=== PATIENT | female | born 1965 | race Caucasian/White ===

== ENCOUNTER 2020-02-03 09:44 | Outpatient (REF) | payer BC, SELFPAY ==
[2020-02-03 12:16] LABS: Alanine Aminotransferase 26 U/L (0-31); Albumin Level 4.7 g/dL (3.5-5.0); Alkaline Phosphatase 67 U/L (39-117); Anion Gap 11 (12-20); Aspartate Amino Transferase 25 U/L (5-31); Bilirubin Total 0.8 mg/dL (0.0-1.0); Blood Urea Nitrogen 15 mg/dL (9-16); Carbon Dioxide 28 mmol/L (22-29); Chloride 101 mmol/L (96-108); Cholesterol 267 mg/dL; Estimated Glomerular Filt Rate > 60; Glucose Fasting 103 mg/dL (60-99); HDL Cholesterol 75 mg/dL; LDL Cholesterol Calculated 151 mg/dl; Sodium 136 mmol/L (135-145); Total Protein 7.5 g/dL (6.5-8.0); Triglycerides 206 mg/dL; Vitamin D 25-OH Total 44.2 ng/mL (>30)
== END 2020-02-03 09:45 | disposition home or self-care (01) ==
LOC: HO.HMGCLDS 09:44
PROVIDERS: PCP Internal Medicine; Visit Provider Internal Medicine
DX: Z00.01 Encounter for general adult medical examination with abnormal findings (principal); L30.9 Dermatitis, unspecified; K21.9 Gastro-esophageal reflux disease without esophagitis; F41.9 Anxiety disorder, unspecified; N95.1 Menopausal and female climacteric states; F17.200 Nicotine dependence, unspecified, uncomplicated
CPT/HCPCS: 36415; 80053; 80061; 82306

== ENCOUNTER 2020-03-04 08:15 | Outpatient (REF) | payer BC, SELFPAY ==
--- NOTE | 2020-03-04 08:18 | US_ITS ---
EXAMINATION: US SOFT TISSUE HEAD/NECK CLINICAL INFORMATION: Other specified soft tissue disorders, lump on neck COMPARISON: None TECHNIQUE: Routine grayscale imaging of neck lump was performed. FINDINGS: Imaging through an area of lump as per patient reveals no sonographic abnormality. No mass or cyst seen. No abnormal vascularity. US/US soft tiss head and/or neck IMPRESSION: Unremarkable ultrasound of neck lump.
== END 2020-03-04 08:16 | disposition home or self-care (01) ==
LOC: HO.HMGCX 08:15
PROVIDERS: PCP Internal Medicine; Visit Provider Hospitalist
DX: M79.89 Other specified soft tissue disorders (principal)
CPT/HCPCS: 76536

== ENCOUNTER → 2020-03-17 11:29 | Outpatient (BNVA) | payer BC, SELFPAY | PROVIDERS: PCP Internal Medicine; Referring Provider Internal Medicine; Visit Provider Nurse Practitioner | DX: Z76.89 Persons encountering health services in other specified circumstances (principal) ==

== ENCOUNTER 2020-05-20 07:29 | Outpatient (REF) | payer BC, SELFPAY | END 2020-05-20 07:30 | disposition home or self-care (01) | LOC: HO.HMGCLDS 07:29 | PROVIDERS: PCP Internal Medicine; Visit Provider Internal Medicine | DX: Z20.822 Contact with and (suspected) exposure to COVID-19 (principal) | CPT/HCPCS: 36415; U0003 ==

== ENCOUNTER → 2020-06-22 08:49 | Outpatient (BNVA) | payer BC, SELFPAY | PROVIDERS: PCP Internal Medicine; Visit Provider Nurse Practitioner ==

== ENCOUNTER → 2020-12-21 08:42 | Outpatient (BNVA) | payer BC, SELFPAY | PROVIDERS: PCP Internal Medicine; Visit Provider Nurse Practitioner ==

== ENCOUNTER 2021-02-03 10:16 | Outpatient (REF) | payer BC, SELFPAY ==
[2021-02-03 11:20] LABS: MANUAL DIFF FLAG NO
[2021-02-03 11:24] LABS: Basophils Percent Auto 0.6 % (0-2); Eosinophils Absolute Auto 0.1 X10*3/uL (0.0-0.4); Eosinophils Percent Auto 1.7 % (0-4); Hematocrit 41.9 % (37-47); Hemoglobin 14.2 g/dl (12.0-16.0); Imm Gran Abs Auto 0.06 X10*3/uL (0.00-0.03); Imm Gran Pct Auto 0.9 % (0.0-0.4); Lymphocytes Absolute Auto 2.3 X10*3/uL (1.2-4.9); Lymphocytes Percent Auto 35.4 % (20-40); Mean Corpuscular HGB Conc 33.9 g/dl (31.0-35.0); Mean Corpuscular Hemoglobin 31.9 pg (27.0-33.0); Mean Corpuscular Volume 94.2 fL (80-98); Mean Platelet Volume 11.4 fL (9.4-12.3); Monocytes Absolute Auto 0.5 X10*3/uL (0.1-1.2); Monocytes Percent Auto 8.2 % (2-11); Neutrophils Absolute Auto 3.5 X10*3/uL (2.0-8.3); Neutrophils Percent Auto 53.2 % (45-73); Platelet Count 223 X10*3/uL (160-400); Red Blood Count 4.45 X10*6/uL (4.20-5.50); Red Cell Distribution Width 11.9 % (11.0-16.0); White Blood Count 6.6 X10*3/uL (4.8-10.8)
[2021-02-03 12:00] LABS: Alanine Aminotransferase 25 U/L (0-31); Albumin Level 4.7 g/dL (3.5-5.0); Alkaline Phosphatase 73 U/L (39-117); Anion Gap 14 (12-20); Aspartate Amino Transferase 24 U/L (5-31); Bilirubin Total 0.6 mg/dL (0.0-1.0); Blood Urea Nitrogen 17 mg/dL (9-16); Calcium 10.3 mg/dL (8.4-10.2); Carbon Dioxide 27 mmol/L (22-29); Chloride 105 mmol/L (96-108); Cholesterol 267 mg/dL; Estimated Glomerular Filt Rate 60; Glucose Random 101 mg/dL (60-115); HDL Cholesterol 79 mg/dL; LDL Cholesterol Calculated 161 mg/dl; Potassium 4.8 mmol/L (3.3-5.1); Sodium 141 mmol/L (135-145); Total Protein 7.8 g/dL (6.5-8.0); Triglycerides 139 mg/dL
[2021-02-03 12:06] LABS: Vitamin D 25-OH Total 47.9 ng/mL (>30)
[2021-02-03 12:21] LABS: Estimated Average Glucose 94 mg/dL; Hemoglobin A1c % 4.9 %
== END 2021-02-03 10:17 | disposition home or self-care (01) ==
LOC: HO.HMGCLDS 10:16
PROVIDERS: PCP Internal Medicine; Visit Provider Nurse Practitioner
DX: Z00.00 Encounter for general adult medical examination without abnormal findings (principal); Z12.11 Encounter for screening for malignant neoplasm of colon; E78.5 Hyperlipidemia, unspecified; K21.9 Gastro-esophageal reflux disease without esophagitis; R73.01 Impaired fasting glucose
CPT/HCPCS: 36415; 80053; 80061; 82306; 83036; 85025

== ENCOUNTER 2021-02-08 08:43 | Outpatient (REF) | payer BC, SELFPAY ==
--- NOTE | ~2021-02-08 | XR_ITS ---
EXAMINATION: XR HAND, LEFT CLINICAL INFORMATION: Trauma, pain COMPARISON: None TECHNIQUE: PA, lateral, and oblique views of the left hand. FINDINGS: There is a hairline nondisplaced fracture involving the distal shaft and neck left fifth metacarpal. The remainder of the bony structures appear intact. The ulnar variance is neutral. There is no dislocation or destructive process. No arthropathy. XR/XR hand LT min 3V IMPRESSION: Oblique hairline fracture left fifth metacarpal.
== END 2021-02-08 08:44 | disposition home or self-care (01) ==
LOC: HO.HMGCX 08:43
PROVIDERS: PCP Internal Medicine; Visit Provider Physician Assistant Medical
DX: S69.92XA Unspecified injury of left wrist, hand and finger(s), initial encounter (principal)
CPT/HCPCS: 73130

== ENCOUNTER 2021-02-08 09:49 | Emergency (ER) | payer BC, SELFPAY ==
[2021-02-08 09:55] VITALS: BP 165/81; PULSE 88; RESP 18; TEMP 36.5; O2SAT 99; BMI 22.8
--- NOTE | 2021-02-08 11:21 | ED.UPPEXIN ---
HPI - Extremity Injury (Upper) General Chief Complaint: Extremity Problem Stated Complaint: fall - arm injury Time Seen by Provider: 02/08/21 10:47 Source: patient Mode of arrival: ambulatory Limitations: no limitations History of Present Illness HPI narrative: 56-year-old female presenting to the ED after she had a mechanical fall last night when she was chasing her cat and tripped and fell in her house landing on her left hand and since then has been having pain to her left hand 5th digit with soft tissue swelling and ecchymosis. She denies head injury loss of consciousness or being on any blood thinners or any other injury complaints or concerns at this time. She was seen at the outpatient urgent care and they noted she had the hairline left 5th metacarpal fracture although they do not have splints there therefore they sent her here for splint. MD complaint: injury to: left and hand Onset (ago): day(s) (Last night) Other Extremity Injury: left: hand Other injuries: none Handedness: right Place: home Severity: moderate Relieving factors: none Exacerbating factors: movement of extremity Context: fall Associated symptoms: denies other symptoms Treatments prior to arrival: cold therapy Related Data Home Medications Medication Instructions Recorded Confirmed cholecalciferol (vitamin D3) 10 10 mcg PO DAILY 02/01/20 02/03/21 mcg (400 unit) capsule cyclosporine 0.05 % eye drops in a 1 drp OPHTHALMIC (EYE) Q12H 02/01/20 02/03/21 dropperette (Restasis) multivitamin 1 cap PO DAILY 02/01/20 02/03/21 vitamin B complex (B 1 tab PO DAILY 02/01/20 02/03/21 Complex-Vitamin B12) ibuprofen 600 mg tablet 600 mg PO TID 03/06/20 02/03/21 clindamycin 1.2 % (1 % 1 appl TOPICAL DAILY 02/03/21 02/03/21 base)-benzoyl peroxide 5 % topical gel Previous Rx's Medication Instructions Recorded bisacodyl 5 mg tablet,delayed 10 mg PO BEDTIME 2 Days #4 tab 12/21/20 release (Dulcolax (bisacodyl)) peg 3350-electrolytes 236 240 ml PO Q10M 1 Days #4000 ml 12/21/20 gram-22.74 gram-6.74 gram-5.86 gram solution (Golytely) pantoprazole 40 mg tablet,delayed 40 mg PO DAILY #90 cap 01/18/21 release acetaminophen 500 mg tablet 1,000 mg PO QID PRN #14 tab 02/08/21 (Tylenol Extra Strength) ibuprofen 800 mg tablet 800 mg PO Q8H PRN #14 tab 02/08/21 Allergies Allergy/AdvReac Type Severity Reaction Status Date / Time No Known Allergies Allergy Verified 02/03/21 09:48 [No Known Allergies*] Review of Systems Review of Systems: Constitutional : No Fever, No Chills ENT/Mouth : No Ear Pain, No Hoarseness, No sore throat Eyes: No Eye Pain, No Swelling, No Redness, No Foreign Body Cardiovascular : No Chest Pain, No SOB Respiratory : No Cough, No Dyspnea Gastrointestinal : No Nausea, No Vomiting, No Diarrhea, No abdominal Pain Genitourinary : No Dysuria, No Hematuria Musculoskeletal : Positive left hand/5th metacarpal joint pain/swelling/ecchymosis, No Myalgias, No Joint Swelling Skin : No Skin lacerations, No rash Neuro : No Weakness, No Numbness, No Paresthesias, No Loss of Consciousness, No Dizziness, No Headache Psych : No Anxiety/Panic, No Depression Heme/Lymph: no easy bruising, no Lymphadenopathy Endocrine : No Polyuria, No Polydipsia Yes all other systems are reviewed and are negative [facility] Past Medical History Attestation statement: The following information was validated with the patient. Medical History Cervical paraspinal muscle spasm Dyslipidemia Eczema of both hands GERD (gastroesophageal reflux disease) History of anxiety disorder History of chickenpox Impaired fasting glucose Osteopenia of left hip Osteopenia of right hip Rash of face Smoker unmotivated to quit Surgical menopause Surgical History History of appendectomy History of esophagogastroduodenoscopy (EGD) History of hysterectomy, supracervical abdominal (subtotal) Hx of colonoscopy Family History Family History Father Hypertension Mother Diabetes Stroke Brother Hypercholesteremia Brother Hypertension Social History Social History Housing: House Alcohol intake: current Alcohol intake frequency: 0-2 drinks per day Alcohol type: beer and wine Patient Tobacco Use Status: Current everyday Tobacco user Cigarettes Per Day: 10 Years Smoked: 40 Advance Directives: No Advance Directives Information Provided: No service: No Current occupational status: employed Physical Exam Vital Signs: Vital Signs: Last Vital Signs Temp 97.7 F 02/08/21 09:55 Pulse 88 02/08/21 09:55 Resp 18 02/08/21 09:55 BP 165/81 H 02/08/21 09:55 Pulse Ox 99 02/08/21 09:55 Body Mass Index 22.8 vital signs have been reviewed as normal and appeared to be correct. Blood pressure hypertensive 165/81. heart rate normal Respiration rate normal. Temperature normal. Oxygen saturation normal. Appearance: Alert. Oriented X3. No acute distress. Head: Normal external exam. Normocephalic. Atraumatic. Eyes: PERRLA. EOMI. Conjunctiva and sclera normal. Eyelids normal. ENT: Pharynx normal. Uvula midline. Moist mucous membranes. Neck: Normal inspection. Neck supple. FROM. CVS: Normal heart rate and rhythm. Respiratory: No respiratory distress. Painless inspiration. Skin: Skin warm and dry. Normal skin color. Normal skin turgor. No rashes/lesions/lacerations noted. Extremities: To left hand at the 5th metacarpal patient has moderate tenderness of patient and ecchymosis noted. She has full range of motion of all digits and wrist no obvious ligamentous or tendon injury. No signs of infection. Otherwise all other extremities exhibit normal range of motion and nontender. Neuro: Oriented X 3. No motor deficit. No sensory deficit. Reflexes normal. Normal steady gait. No focal neuro deficits noted. Vascular: + radial pulses/+ 2 distal pedal pulses/+2 dorsalis pedis b/l. Normal cap refill. No cyanosis noted to upper extremity nails and lower extremity toes nails. Course Course Course Narrative: 56-year-old female not on any blood thinners denies head injury or loss of consciousness presenting to the ED after she was seen at the Urgent Care for mechanical fall with injury to her left hand and had an x-ray which revealed a left hairline 5th metacarpal fracture was sent here for splinting. Denies any other injury complaints or concerns. Patient is now status post splint placement. Patient tolerated procedure well. No complications. Will DC home with symptomatic treatment and referral to orthopedic along with instructions return if any new or worsening symptoms. Patient understand agree to this plan. MDM - Extremity Injury (Upper) Medical Records Attestation: I reviewed the patient's medical records. Imaging Data Left hand x-ray: Attestation: I personally reviewed and interpreted this imaging study as follows: Radiologist's impression: FINDINGS: There is a hairline nondisplaced fracture involving the distal shaft and neck left fifth metacarpal. The remainder of the bony structures appear intact. The ulnar variance is neutral. There is no dislocation or destructive process. No arthropathy.? XR/XR hand LT min 3V IMPRESSION: Oblique hairline fracture left fifth metacarpal. Procedures Orthopedic Splinting/Casting Injury #1: Side: left Upper Extremity Injury Location: wrist, hand and finger Upper Extremity Immobilizer: ulnar gutter Discharge Plan Discharge Clinical Impression: Fracture of fifth metacarpal bone of left hand, Fall Patient Disposition: Home, Self-Care Instructions: Splint Care (ED), Boxer Fracture (ED) Prescriptions: New ibuprofen 800 mg tablet 800 mg PO Q8H PRN (Reason: pain) Qty: 14 RF: 0 acetaminophen [Tylenol Extra Strength] 500 mg tablet 1,000 mg PO QID PRN (Reason: fever or pain) Qty: 14 RF: 0 No Action pantoprazole 40 mg tablet,delayed release (DR/EC) 40 mg PO DAILY Qty: 90 RF: 5 vitamin B complex [B Complex-Vitamin B12] Tablet 1 tab PO DAILY RF: 0 Restasis 0.05 % dropperette 1 drp ophthalmic (eye) Q12H RF: 0 cholecalciferol (vitamin D3) 10 mcg (400 unit) capsule 10 mcg PO DAILY RF: 0 multivitamin Capsule 1 cap PO DAILY RF: 0 clindamycin-benzoyl peroxide 1.2 %(1 % base) -5 % gel 1 appl topical DAILY RF: 0 ibuprofen 600 mg tablet 600 mg PO TID RF: 0 bisacodyl [Dulcolax (bisacodyl)] 5 mg tablet,delayed release (DR/EC) 10 mg PO BEDTIME 2 Days Qty: 4 RF: 0 peg 3350-electrolytes [Golytely] 236-22.74-6.74 -5.86 gram recon soln 240 ml PO Q10M 1 Days Qty: 4000 RF: 0 Referrals: Nita Duke MD [Primary Care Provider] - 2 days Alex Krishna MD [Physician] - 02/09/21 Stand Alone Forms: Work/School Release Print Language: Cuban
== END 2021-02-08 11:32 | disposition home or self-care (01) ==
PROVIDERS: Emergency Provider Emergency Medicine; PCP Internal Medicine
DX: S62.307A Unspecified fracture of fifth metacarpal bone, left hand, initial encounter for closed fracture (principal); W01.0XXA Fall on same level from slipping, tripping and stumbling without subsequent striking against object, initial encounter; Y93.9 Activity, unspecified; Y92.009 Unspecified place in unspecified non-institutional (private) residence as the place of occurrence of the external cause; Y99.9 Unspecified external cause status
CPT/HCPCS: 29125; 99283; 99284

== ENCOUNTER 2021-02-22 08:03 | Day surgery (SDC) | payer BC, SELFPAY ==
[2021-02-16 14:09] VITALS: BMI 24.5
--- NOTE | 2021-02-19 09:22 | HO.ANESPROP2 ---
Documented by User: Vanessa Garber NP 02/19/21 09:24 HPI - Anesthesia Eval Consult details Narrative: 56yo F for Colonoscopy PMFSH Active Problems Active Problems: All Active Problems (Updated 02/16/21 @ 14:04 by Alva Tello RN) Dysphagia (Acute) Loose stools (Acute) Colon cancer screening (Acute) Hemorrhoids (Acute) Injury of left hand (Acute) Fracture of fifth metacarpal bone of left hand (Acute) Osteopenia of right hip (Acute) Impaired fasting glucose (Acute) Dyslipidemia (Acute) Rash of face (Acute) Cervical paraspinal muscle spasm (Acute) Osteopenia of left hip (Acute) Smoker unmotivated to quit (Acute) Eczema of both hands (Acute) GERD (gastroesophageal reflux disease) (Acute) Past Medical History Medical History (Updated 02/16/21 @ 14:04 by Alva Tello, RN) Cervical paraspinal muscle spasm COVID-19 vaccine series completed Dyslipidemia Eczema of both hands GERD (gastroesophageal reflux disease) History of anxiety disorder History of chickenpox Impaired fasting glucose Osteopenia of left hip Osteopenia of right hip Rash of face Smoker unmotivated to quit Surgical menopause Family History Family History Father Hypertension Mother Diabetes Stroke Brother Hypercholesteremia Brother Hypertension Surgical History Surgical History (Updated 02/16/21 @ 14:02 by Alva Tello RN) History of appendectomy History of esophagogastroduodenoscopy (EGD) History of hysterectomy, supracervical abdominal (subtotal) Hx of colonoscopy Social History Social History Housing: House Alcohol intake: current Alcohol intake frequency: holidays/special occasions only Alcohol type: beer and wine Patient Tobacco Use Status: Current everyday Tobacco user Tobacco use type: Cigarette Cigarettes Per Day: 15 Years Smoked: 40 Advance Directives Information Provided: Yes (informational brochure mailed) Advance Directives on File: No service: No Current occupational status: employed Meds Allergies Allergy/AdvReac Type Severity Reaction Status Date / Time No Known Allergies Allergy Verified 02/03/21 09:48 [No Known Allergies*] Home Medications Medication Instructions Recorded Confirmed Last Taken Type cholecalciferol (vitamin D3) 10 10 mcg PO DAILY 02/01/20 02/03/21 Unknown History mcg (400 unit) capsule cyclosporine 0.05 % eye drops in a 1 drp OPHTHALMIC (EYE) Q12H 02/01/20 02/03/21 Unknown History dropperette (Restasis) multivitamin 1 cap PO DAILY 02/01/20 02/03/21 Unknown History vitamin B complex (B 1 tab PO DAILY 02/01/20 02/03/21 Unknown History Complex-Vitamin B12) ibuprofen 600 mg tablet 600 mg PO TID 03/06/20 02/03/21 Unknown History clindamycin 1.2 % (1 % 1 appl TOPICAL DAILY 02/03/21 02/03/21 Unknown History base)-benzoyl peroxide 5 % topical gel Exam Exam Date and Time: February 19, [id number] Height,Weight and Vital Signs: Height 5 ft 6 in Weight 68.946 kg Pertinent Lab Results Pertinent Lab Results: Laboratory Tests 02/03/21 02/03/21 10:30 10:30 WBC 6.6 Hgb 14.2 Hct 41.9 Plt Count 223 Sodium 141 Potassium 4.8 Chloride 105 Carbon Dioxide 27 BUN 17 H Creatinine 0.96 Assessment and Plan Assessment Anesthesia Assessment: Chart Reviewed Documented by User: Dominga Montoya MD 02/22/21 08:28 [facility] Past Medical History Medical History (Updated 02/16/21 @ 14:04 by Alva Tello, RN) Cervical paraspinal muscle spasm COVID-19 vaccine series completed Dyslipidemia Eczema of both hands GERD (gastroesophageal reflux disease) History of anxiety disorder History of chickenpox Impaired fasting glucose Osteopenia of left hip Osteopenia of right hip Rash of face Smoker unmotivated to quit Surgical menopause Family History Family History Father Hypertension Mother Diabetes Stroke Brother Hypercholesteremia Brother Hypertension Family history of problems with anesthesia: No Surgical History Surgical History (Updated 02/16/21 @ 14:02 by Alva Tello RN) History of appendectomy History of esophagogastroduodenoscopy (EGD) History of hysterectomy, supracervical abdominal (subtotal) Hx of colonoscopy History of Problems with Anesthesia: No Social History Social History Housing: House Alcohol intake: current Alcohol intake frequency: holidays/special occasions only Alcohol type: beer and wine Patient Tobacco Use Status: Current everyday Tobacco user Tobacco use type: Cigarette Cigarettes Per Day: 15 Years Smoked: 40 Advance Directives Information Provided: Yes (informational brochure mailed) Advance Directives on File: No service: No Current occupational status: employed Meds Allergies Allergy/AdvReac Type Severity Reaction Status Date / Time No Known Allergies Allergy Verified 02/03/21 09:48 [No Known Allergies*] Home Medications Medication Instructions Recorded Confirmed Last Taken Type cholecalciferol (vitamin D3) 10 10 mcg PO DAILY 02/01/20 02/03/21 Unknown History mcg (400 unit) capsule cyclosporine 0.05 % eye drops in a 1 drp OPHTHALMIC (EYE) Q12H 02/01/20 02/03/21 Unknown History dropperette (Restasis) multivitamin 1 cap PO DAILY 02/01/20 02/03/21 Unknown History vitamin B complex (B 1 tab PO DAILY 02/01/20 02/03/21 Unknown History Complex-Vitamin B12) ibuprofen 600 mg tablet 600 mg PO TID 03/06/20 02/03/21 Unknown History clindamycin 1.2 % (1 % 1 appl TOPICAL DAILY 02/03/21 02/03/21 Unknown History base)-benzoyl peroxide 5 % topical gel Exam Airway Mallampati Class: II TM Dist: >3cm Neck ROM: Full Heart: rrr Lungs: cta Assessment and Plan Assessment Anesthesia Assessment: Anesthesia Plan Discussed and Chart Reviewed Final Anesthetic Review Family History of Problems with Anesthesia: No History of Problems with Anesthesia: No NPO: Yes ASA Class: II Final Preanesthetic Review: No Changes in Pt Med Stat, Meds/Allgs Chart Reviewed and Consent Obtained/Reviewed Patient Risk: Intermediate Procedure Risk: Intermediate Anesthetic Plan Anesthetic Plan: MAC: Disposition: Standard PACU
[2021-02-22 08:29] VITALS: BP 135/87; PULSE 85; RESP 16; TEMP 36.1; O2SAT 100
[2021-02-22] MEDS: Lactated Ringers 1,000 ML 50 ML IVCONT (08:33)
--- NOTE | 2021-02-22 08:44 | MHC.SHP ---
Pre-Procedural Eval Section A Date of Service: 02/22/21 The patient is an INPATIENT: No The History & Physical has been completed within 30 days and I have reviewed it.: No Section B Chief Complaint: screening Details of Present Illness: Colon cancer screening, hemorrhoids Relevant Social History: Tobacco Use Present Medications: see Short Stay Collaborative assessment Medical History: Significant History (Cervical paraspinal muscle spasm Eczema of both hands GERD (gastroesophageal reflux disease) History of anxiety disorder History of chickenpox Osteopenia of left hip Rash of face Smoker unmotivated to quit Surgical menopause) History of Previous Operations: Relevant previous surgery/procedure and date(s) (History of appendectomy History of esophagogastroduodenoscopy (EGD) History of hysterectomy, supracervical abdominal (subtotal) Hx of colonoscopy) Allergies: Allergies Allergy/AdvReac Type Severity Reaction Status Date / Time No Known Allergies Allergy Verified 02/03/21 09:48 [No Known Allergies*] Review of Systems Sugical H&P ROS: Negative: Constitution, Cardiovascular, Respiratory and Gastrointestinal Exam Surgical H&P Exam: Normal: Heart, Normal: Lungs, Normal: Extremities and Normal: Abdomen Plan Diagnosis/Plan: Unchanged I have reviewed the history and physical and performed a pertinent physical examination on my patient. No changes have occurred unless specified.
--- NOTE | 2021-02-22 09:43 | PM.OP ---
Brief Operative Note Date of Service: 02/22/21 Pre-op diagnosis: Colon cancer screening Post-op diagnosis: other (Colon polyps, diverticulosis, hemorrhoids) Procedure: COLONOSCOPY TILL CECUM WITH BIOPSIES, SNARE POLYPECTOMY AND SUBMUCOSAL INJECTION Consent: Indications for the procedure and potential complications of bleeding, perforation, reaction to medications and missed diagnosis were discussed with the patient and informed consent was obtained. Instrument: Olympus PCF H 190 L variable stiffness pediatric colonoscope Monitoring: Vital signs and clinical assessment, intermittent blood pressure monitoring, continuous EKG monitoring, Pulse oximetry and Carbon Dioxide monitoring were done throughout the procedure. Colon withdrawl time was 25 minutes. Procedure: The patient was placed in the left lateral decubitis position and pre-procedure medications were administered. After a digital rectal examination of the ano-rectum, the video colonoscope was inserted into the rectum and advanced through the colon to the cecum. The colonoscope was slowly withdrawn in a retrograde panoramic fashion and the colon mucosa was carefully examined including a retroflexed view of the rectum. Findings and interventions are described below. Procedure Difficulty: Without difficulty Findings: Terminal Ileum: Not evaluated Cecum: Normal Ascending Colon: A 15-18 mm flat polyp at 80 cms raised with 3 cc of Orise solution and removed with a hot snare. Polyp was not retrieved. Small amount of residual polyp was removed with a cold bx. Polypectomy site was marked with Danii ink Transverse Colon: A 4-5 mm sessile polyp removed with a cold bx. Descending Colon: Moderate diverticulosis Sigmoid Colon: A 12-15 mm sessile polyp removed with a hot snare. Moderate diverticulosis Rectum: Two 8-10 mm sessile polyps removed with bx and cold snare. Ano-rectum: Moderate internal hemorrhoids and perianal skin tags. Colon preparation: Excellent Impression and Post Procedure Diagnosis: Colonoscopy Findings: Five small to medium sized polyps removed Moderate diverticulosis seen in the left colon Moderate hemorrhoids on retroflexed exam. Plan: Await pathology results Patient has an appointment on 03/09/21 in the GI Clinic with Jyotsna Triana NP. Repeat Colonoscopy interval based on path results - in 2 years if polyps are adenomatous and 10 years if polyps are hyperplastic. Above findings were reviewed with the patient and colon polyps and diverticulosis handouts were given in the discharge area Surgeon: Camron Santiago MD Anesthesia: MAC (Giulia Boyd CRNA) Was an Crime Prevention Police Officer used for this Procedure?: Yes Crime Prevention Police Officer: Marilia Paul Estimated blood loss (mL): 0 Pathology: other (A- ASCENDING COLON POLYP AT 80CMS- USED ORISE B- TRANSVERSE COLON POLYP C- SIGMOID COLON POLYP D- RECTAL POLYPS) Condition: stable Disposition: PACU
[2021-02-22 09:44] VITALS: BP 78/33; PULSE 67; RESP 16; TEMP 36.3; O2SAT 99
--- NOTE | 2021-02-22 09:48 | P.OP_ITS ---
Operative Note Operative Note Date of Service: 02/22/21 Narrative: Pre-op diagnosis:?Colon cancer screening Post-op diagnosis:?other (Colon polyps, diverticulosis, hemorrhoids) Procedure:? COLONOSCOPY TILL CECUM? WITH BIOPSIES, SNARE POLYPECTOMY AND SUBMUCOSAL INJECTION Consent: Indications for the procedure and potential complications of bleeding, perforation, reaction to medications and missed diagnosis were discussed with the patient and informed consent was obtained. Instrument: Olympus PCF H 190 L variable stiffness pediatric colonoscope Monitoring: Vital signs and clinical assessment, intermittent blood pressure monitoring, continuous EKG monitoring, Pulse oximetry and Carbon Dioxide monitoring were done throughout the procedure. Colon withdrawl time was 25 minutes. Procedure: The patient was placed in the left lateral decubitis position and pre-procedure medications were administered. After a digital rectal examination of the ano-rectum, the video colonoscope was inserted into the rectum and advanced through the colon to the cecum. The colonoscope was slowly withdrawn in a retrograde panoramic fashion and the colon mucosa was carefully examined including a retroflexed view of the rectum. Findings and interventions are described below. Procedure Difficulty: Without difficulty Findings: Terminal Ileum: Not evaluated Cecum:? Normal Ascending Colon:? A 15-18 mm flat polyp at 80 cms raised with 3 cc of Orise solution and removed with a hot snare. Polyp was not retrieved.? Small amount of residual polyp was removed with a cold bx.? Polypectomy site was marked with Danii ink Transverse Colon:? A 4-5 mm sessile polyp removed with a cold bx. Descending Colon:? Moderate diverticulosis Sigmoid Colon:? A 12-15 mm sessile polyp removed with a hot snare. Moderate diverticulosis Rectum:? Two 8-10 mm sessile polyps removed with bx and cold snare. Ano-rectum:? Moderate internal hemorrhoids and perianal skin tags. Colon preparation: Excellent ? Impression and Post Procedure Diagnosis: Colonoscopy Findings: Five small to medium sized polyps removed Moderate diverticulosis seen in the left colon Moderate hemorrhoids on retroflexed exam. Plan: Await pathology results Patient has an appointment on 03/09/21 in the GI Clinic with? Jyotsna Triana NP. Repeat Colonoscopy interval based on path results - in 2 years if polyps are adenomatous and 10 years if polyps are hyperplastic. Above findings were reviewed with the patient and colon polyps and diverticulosis handouts were given in the discharge area Surgeon:?Camron Santiago MD Anesthesia:?MAC (Giulia Boyd CRNA) Was an Predatory Hunter used for this Procedure?:?Yes Predatory Hunter:?Marilia Paul Estimated blood loss (mL):?0 Pathology:?other (A-? ASCENDING COLON POLYP AT 80CMS- USED ORISE? B-? TRANSVERSE COLON POLYP? C- SIGMOID COLON POLYP? D- RECTAL POLYPS) Condition:?stable Disposition:?PACU
[2021-02-22 09:59] VITALS: BP 122/63; PULSE 71; RESP 63; O2SAT 100
[2021-02-22 10:12] VITALS: BP 136/75; PULSE 62; RESP 18; TEMP 36.6; O2SAT 100
== END 2021-02-22 10:44 | disposition home or self-care (01) ==
PROVIDERS: PCP Internal Medicine; Visit Provider Internal Medicine Gastroenterology
PROC: 0DJD8ZZ Inspection of Lower Intestinal Tract, Via Natural or Artificial Opening Endoscopic (ICD-10-PCS; CPT 45378; principal; 2021-02-22 09:30)
DX: Z12.11 Encounter for screening for malignant neoplasm of colon (principal); D12.2 Benign neoplasm of ascending colon; D12.5 Benign neoplasm of sigmoid colon; K62.1 Rectal polyp; K57.30 Diverticulosis of large intestine without perforation or abscess without bleeding; K64.8 Other hemorrhoids; K64.4 Residual hemorrhoidal skin tags; K21.9 Gastro-esophageal reflux disease without esophagitis; Z79.899 Other long term (current) drug therapy; F17.210 Nicotine dependence, cigarettes, uncomplicated
CPT/HCPCS: 45385; 45380; 45381; 88305

== ENCOUNTER 2021-02-23 07:41 | Outpatient (REF) | payer BC, SELFPAY ==
--- NOTE | ~2021-02-23 | XR_ITS ---
EXAMINATION: XR HAND, LEFT CLINICAL INFORMATION: Left hand pain COMPARISON: February 08, 2021 TECHNIQUE: 3 views of the left fifth finger FINDINGS: There is again noted to be an oblique nondisplaced fracture involving the mid and distal aspects of the left fifth metacarpal. No dislocation is evident. No significant periosteal new bone formation is appreciated. XR/XR hand LT min 3V IMPRESSION: No significant change in alignment or appearance of fracture line within the fifth metacarpal.
== END 2021-02-23 07:42 | disposition home or self-care (01) ==
LOC: HO.HOSX 07:41
PROVIDERS: Visit Provider Physician Assistant
DX: S62.307A Unspecified fracture of fifth metacarpal bone, left hand, initial encounter for closed fracture (principal); X58.XXXA Exposure to other specified factors, initial encounter; Y93.9 Activity, unspecified; Y92.9 Unspecified place or not applicable; Y99.9 Unspecified external cause status
CPT/HCPCS: 73130

== ENCOUNTER → 2021-03-11 09:05 | Outpatient (BNVA) | payer BC, SELFPAY | PROVIDERS: Visit Provider Nurse Practitioner ==

== ENCOUNTER 2021-03-22 07:24 | Outpatient (REF) | payer BC, SELFPAY ==
--- NOTE | ~2021-03-22 | XR_ITS ---
EXAMINATION: XR HAND, LEFT CLINICAL INFORMATION: M79.643 - Pain in unspecified hand COMPARISON: Radiographs left hand 02/23/2021 TECHNIQUE: Left hand is imaged in 3 views. FINDINGS: There is an oblique fracture distal shaft and neck fifth metacarpal similar to prior exam. There is no angulation or displacement. Fracture line still visible. No new fracture or destructive process or arthropathy. XR/XR hand LT min 3V IMPRESSION: Nondisplaced fracture left fifth metacarpal similar to prior study.
== END 2021-03-22 07:25 | disposition home or self-care (01) ==
LOC: HO.HOSX 07:24
PROVIDERS: Visit Provider Physician Assistant
DX: M79.643 Pain in unspecified hand (principal)
CPT/HCPCS: 73130

== ENCOUNTER 2022-01-31 08:30 | Outpatient (REF) | payer BC, SELFPAY ==
[2022-01-31 12:01] LABS: Alanine Aminotransferase 23 U/L (0-31); Anion Gap 14 (12-20); Aspartate Amino Transferase 26 U/L (5-31); Blood Urea Nitrogen 17 mg/dL (9-16); Calcium 9.9 mg/dL (8.4-10.2); Carbon Dioxide 27 mmol/L (22-29); Chloride 101 mmol/L (96-108); Cholesterol 292 mg/dL; Estimated Glomerular Filt Rate > 60; Glucose Fasting 101 mg/dL (60-99); HDL Cholesterol 80 mg/dL; LDL Cholesterol Calculated 174 mg/dl; Potassium 4.3 mmol/L (3.3-5.1); Sodium 138 mmol/L (135-145); Triglycerides 191 mg/dL
[2022-01-31 12:05] LABS: Vitamin D 25-OH Total 54.3 ng/mL (>30)
== END 2022-01-31 08:31 | disposition home or self-care (01) ==
LOC: HO.HMGCLDS 08:30
PROVIDERS: PCP Internal Medicine; Visit Provider Internal Medicine
DX: Z00.00 Encounter for general adult medical examination without abnormal findings (principal); N95.9 Unspecified menopausal and perimenopausal disorder
CPT/HCPCS: 36415; 80048; 80061; 82306; 84450; 84460

== ENCOUNTER 2022-03-21 14:09 | Outpatient (REF) | payer BC, SELFPAY ==
--- NOTE | ~2022-03-21 | US_ITS ---
EXAMINATION: NONINVASIVE ASSESSMENT OF THE ARTERIES OF BOTH LOWER EXTREMITIES INCLUDING BILATERAL LOWER EXTREMITY DUPLEX. CLINICAL INFORMATION: Evaluate for peripheral vascular disease, skin anesthesia COMPARISON: None TECHNIQUE: duplex Doppler techniques with wave form analysis and measurement of velocities in the common femoral, profunda femoral, superficial femoral, popliteal, tibial and peroneal arteries. The study was performed only at rest. FINDINGS: RIGHT LEG Common femoral artery: 155 cm/s, Multiphasic Profunda femoris artery: 120 cm/s, Multiphasic Superficial femoral artery (proximal): 146 cm/s, Multiphasic Superficial femoral artery (mid): 116 cm/s, Multiphasic Superficial femoral artery (distal): 142 cm/s, Multiphasic Proximal Popliteal artery: 78 cm/s, Multiphasic Mid posterior tibial artery: 99 cm/s, Multiphasic LEFT LEG: Common femoral artery: 174 cm/s, Multiphasic Profunda femoris artery: 103 cm/s, Multiphasic Superficial femoral artery (proximal): 116 cm/s, Multiphasic Superficial femoral artery (mid): 140 cm/s, Multiphasic Superficial femoral artery (distal): 124 cm/s, Multiphasic Proximal Popliteal artery: 83 cm/s, Multiphasic Mid posterior tibial artery: 116 cm/s, Multiphasic US/US arterial duplex LE BI IMPRESSION: No hemodynamically significant stenosis in the bilateral lower extremities.
== END 2022-03-21 14:10 | disposition home or self-care (01) ==
LOC: HO.US 14:09
PROVIDERS: Visit Provider Internal Medicine
DX: R20.0 Anesthesia of skin (principal); R20.2 Paresthesia of skin; R09.89 Other specified symptoms and signs involving the circulatory and respiratory systems
CPT/HCPCS: 93925

== ENCOUNTER 2022-04-30 08:13 | Outpatient (REF) | payer BC, SELFPAY ==
[2022-04-30 11:13] LABS: Estimated Average Glucose 97 mg/dL
[2022-04-30 11:28] LABS: Cholesterol 250 mg/dL; Glucose Fasting 103 mg/dL (60-99); HDL Cholesterol 70 mg/dL; LDL Cholesterol Calculated 158 mg/dl; Triglycerides 110 mg/dL
== END 2022-04-30 08:14 | disposition home or self-care (01) ==
LOC: HO.HMGCLDS 08:13
PROVIDERS: PCP Internal Medicine; Visit Provider Internal Medicine
DX: R73.01 Impaired fasting glucose (principal); E78.5 Hyperlipidemia, unspecified
CPT/HCPCS: 36415; 80061; 82947; 83036

== ENCOUNTER 2022-05-10 10:29 | Outpatient (AMB) | payer BC, SELFPAY ==
--- NOTE | 2022-05-10 10:34 | A.OFFPC_ITS ---
Vital Signs 05/10/22 10:36 Height 5 ft 8 in Weight 146 lb BMI 22.1 BP 128/84 Blood Pressure Location Rt brachial Position Sitting Pulse 80 Pulse Source Pulse Oximeter Pulse Oximetry (%) 99 Oxygen Delivery Method Room Air Intake Visit Reasons: 3 month follow up Intake Note: Pt is here today for her 3 months f/u: Allergies No Known Allergies [No Known Allergies*] Allergy (Verified 06/23/23 00:17) Medication List - Last Reconciled 06/23/23 by Nita Duke MD [id number] [id number] mg tabs PO cholecalciferol (vitamin D3) 10 mcg PO DAILY cyclosporine 0.05% (Restasis) 1 drp ophthalmic (eye) Q12H krill oil mg PO multivitamin 1 cap PO DAILY pantoprazole 40 mg PO DAILY vitamin B complex (B Complex-Vitamin B12 tablet) 1 tab PO DAILY Tobacco use date assessed: 05/10/22 HPI 3 month follow up HPI Details 58 year old lady with mixed dyslipidemia , and prediabetes, here today for a follow-up . Currently not on any medications but trying to follow healthy diet and has been trying to get regular exercise. She has also started taking Krill oil. Recent fasting labs showed improvement in her triglycerides and fasting glucose, LDL however remains elevated. Continues to smoke cigarettes, with no desire to quit at present time. She also noticed lump on her left palm, which has been present now for the last several days, denies any pain over area, no impairment in mobility of her left hand and fingers noted. Has hx of hairline fracture of her left 5th MCP after a fall 01/2021. Laboratory Tests 04/30/22 08:18 Fasting Glucose 103 H Estimat Average Gl ucose 97 Hemoglobin A1c % 5.0 Triglycerides 110 Cholesterol 250 LDL Cholesterol, C alc 158 HDL Cholesterol 70 . PFSH Medical History History of adenomatous polyp of colon Palmar nodule Mixed dyslipidemia Decreased pedal pulses Numbness and tingling of foot Fracture of metacarpal bone of left hand COVID-19 vaccine series completed Fracture of fifth metacarpal bone of left hand Osteopenia of right hip Impaired fasting glucose Dyslipidemia Rash of face Loose stools Cervical paraspinal muscle spasm Osteopenia of left hip Smoker unmotivated to quit Surgical menopause Eczema of both hands History of chickenpox History of anxiety disorder GERD (gastroesophageal reflux disease) Surgical History History of esophagogastroduodenoscopy (EGD) Hx of colonoscopy History of appendectomy History of hysterectomy, supracervical abdominal (subtotal) Family History Father Hypertension Mother Diabetes Stroke Brother Hypercholesteremia Brother Hypertension Social History Housing: House Alcohol intake: current Alcohol intake frequency: 0-2 drinks per day Alcohol type: beer and wine Patient Tobacco Use Status: Current everyday Tobacco user Tobacco use type: Cigarette Cigarettes Per Day: 10 Years Smoked: 40 e-Cigarette/Vaping Use: Never Used Second Hand Smoke Exposure: Yes service: No Current occupational status: employed Cognitive needs: No Hearing needs: No Vision needs: Yes Questionnaire Thrive Questionnaire Date Thrive assessed: 02/07/22 GONZÁLEZ-7 AMB Questionnaire GONZÁLEZ-7 Date GONZÁLEZ - 7 assessed: 02/07/22 Source: Developed by Drs. Shiv Augustin, Flaquita Breen, Alo Riggins and colleagues, with an educational leticia from [employer]. Review of Systems Const Denies body aches, Denies fatigue, Denies fever(s), Denies headache(s) and Denies weakness Eyes Denies change in vision ENT Denies dizziness, Denies headache(s) and Denies nasal congestion Card Denies chest pain, Denies lightheadedness, Denies palpitations and Denies dyspnea Resp Denies chest congestion, Denies cough and Denies dyspnea GI Denies abdominal pain, Denies change in bowel habits and Reports heartburn (Controlled with pantoprazole) Denies hematuria, Denies urinary frequency, Denies dysuria and Denies urinary urgency Musc Reports no additional complaints Neuro Denies dizziness, Denies headache(s) and Denies weakness Endo Denies fatigue, Denies polydipsia, Denies polyuria and Denies palpitations Physical exam (Primary Care) Vital Signs: Last Vital Signs Pulse 80 05/10/22 10:36 BP 128/84 05/10/22 10:36 Pulse Ox 99 05/10/22 10:36 Oxygen Delivery Method Room Air 05/10/22 10:36 BMI result Body Mass Index 22.1 Tobacco/Smoking Status: Tobacco use Status Tobacco use date assessed 05/10/22 05/10/22 10:41 Patient Tobacco Use Status Current everyday Tobacco 05/10/22 10:36 Tobacco use type Cigarette 05/10/22 10:36 e-Cigarette/Vaping Use Never Used 05/10/22 10:36 Are you ready to quit: No Tobacco cessation counseling provided: Yes Thrive Assessment: Date of Thrive Assessment Date Thrive assessed 02/07/22 05/10/22 10:36 Const General: cooperative, comfortable and no acute distress Orientation/consciousness: patient oriented x3 Limitations: no limitations HENMT Ears: external ears normal General nose exam: Normal external nose present Mouth: Normal oral and palatal mucosa present, oropharynx normal and moist mucous membranes Eyes General: appearance normal, both eyes and all related structures Neck Neck: Yes full ROM, Yes no lymphadenopathy and Yes supple Thyroid: Thyroid normal Resp Effort & Inspection: normal respiratory effort and able to speak in complete sentences Auscultation: clear to auscultation bilaterally Cardio Rate: regular rate Rhythm: regular rhythm Heart sounds: S1 normal heart sound present and S2 normal heart sound present GI Inspection: Yes normal to inspection Palpation (GI): Soft to palpation, nontender and no masses Auscultation: normal bowel sounds Skin Other: small nontender nodular lesion palpated on left palm just below 3rd finger, with no surrounding erythema Neuro General: patient oriented x3, gait normal, tone normal, moves all extremities, Normal light touch and pain sensation and no focal motor deficits Extrem General: Yes normal to inspection, Yes full ROM, Yes no joint enlargement, Yes no calf tenderness and Yes normal gait Results Reviewed Results Reviewed: Laboratory Tests 04/30/22 08:18 Estimat Average Glucose 97 Hemoglobin A1c % 5.0 ENTERED: 04/30/22 MONIQUE GALAVIZ: ORDERED: Glu Fasting, Lipid Panel Test Result Flag Reference Site FBS 103 H 60-99 mg/dL A fasting glucose from 100-125 mg/dl is considered impaired (pre-diabetes). Triglyceride 110 mg/dL Desirable Triglyceride: less than 150 mg/dL Borderline High Triglyceride 150-199 mg/dL High Triglyceride: 200-499 mg/dL Very High Triglyceride: greater than or equal to 5OO mg/dL Chol 250 mg/dL Desirable Cholesterol: less than 200 mg/dL Borderline High Cholesterol: 200-239 mg/dL High Cholesterol: greater than 239 mg/dL LDL Calculated 158 mg/dl Desirable LDL: less than 100 mg/dL Near Optimal/Above Optimal LDL: 110-129 mg/dL Borderline High LDL: 130-159 mg/dL High LDL: 160-189 mg/dL Very High LDL: greater than or equal to 190 mg/dL HDL 70 mg/dL Desirable HDL: greater than 40 mg/dL Assessment and Plan Assessment & Plan (1) Impaired fasting glucose: Code(s): R73.01 - Impaired fasting glucose Plan: Your fasting blood sugars elevated above 100 mg/dL. Impaired glucose metabolism increase your risk for developing diabetes mellitus type 2, as well as heart attack and stroke later on. Lifestyle changes at just weight loss, healthy eating habits, and regular exercise are important, and can prevent the progression to diabetes (2) Mixed dyslipidemia: Code(s): E78.2 - Mixed hyperlipidemia Plan: Reviewed recent fasting lipid profile with patient with levels triglycerides now within normal limits and lower LDL cholesterol seen but still not at goal . Continue with taking Krill oil, , in addition to adherence to low- cholesterol diet and regular exercise, at least 30 minutes 3 to 4 times a week. Advised patient to make healthy food choices, eat more fruits, vegetables, whole grains, wild caught fish and low-fat dairy. Limit amount of meat and fried or fatty food products, as well as processed foods and fast foods. (3) Palmar nodule: Comment: left Code(s): R22.30 - Localized swelling, mass and lump, unspecified upper limb Qualifiers: Laterality: left Qualified Code(s): R22.32 - Localized swelling, mass and lump, left upper limb Plan: Asymptomatic, will observe for any increase in size and advised to return to clinic if any pain increased size of nodule or any impairment in mobility of left hand noted Coding Level of Care Code Est Pt Level 3 (70212) Diagnoses Impaired fasting glucose R73.01 Mixed dyslipidemia E78.2 Nodule of left palm R22.32 Laterality: left
[2022-05-10 10:36] VITALS: BP 128/84; PULSE 80; O2SAT 99; BMI 22.1
== END 2022-05-10 11:51 | disposition home or self-care (01) ==
LOC: HO.HMGC 10:29
PROVIDERS: PCP Internal Medicine; Visit Provider Internal Medicine
DX: R73.01 Impaired fasting glucose (principal); E78.2 Mixed hyperlipidemia; R22.32 Localized swelling, mass and lump, left upper limb
CPT/HCPCS: 99499

== ENCOUNTER → 2022-05-24 16:01 | Outpatient (BNVA) | payer BC, SELFPAY | PROVIDERS: PCP Internal Medicine; Visit Provider Nurse Practitioner | DX: Z13.89 Encounter for screening for other disorder (principal) ==

== ENCOUNTER 2022-09-19 08:17 | Emergency (ER) | payer BC, SELFPAY ==
--- NOTE | ~2022-09-19 | CT_ITS ---
EXAMINATION: CT ABDOMEN AND PELVIS WITH CONTRAST CLINICAL INFORMATION: Left lower quadrant pain COMPARISON: Previous abdominal ultrasound November 2017 TECHNIQUE: Multidetector volumetric images were obtained from the superior aspect of the liver through the pubic symphysis following administration 85 mL of Omnipaque 350 intravenous contrast. Sagittal and coronal reformatted images were obtained on the technologist's workstation. Oral contrast: Yes This CT examination was performed using dose optimization techniques as appropriate, variously including the following: *Automated exposure control *Adjustment of mA and/or kV according to patient size (this includes techniques or standardized protocols for targeted exams where dose is matched to indication/reason for exam; i.e. extremities or head) *Use of iterative reconstruction technique DLP: 373 mGy-cm FINDINGS: LUNG BASES: The visualized lung bases are unremarkable. LIVER, GALLBLADDER, AND BILIARY TREE: The liver is normal in size, shape, and attenuation. Small liver cysts measuring 8 mm in the central liver and question small cyst adjacent to the falciform ligament. No biliary ductal dilatation is present. The gallbladder is unremarkable with no evidence of radiopaque gallstones, gallbladder wall thickening, or obvious pericholecystic inflammatory changes. PANCREAS: Unremarkable. SPLEEN: Unremarkable. ADRENAL GLANDS: Unremarkable. KIDNEYS AND URETERS: The kidneys are normal in size, shape, and attenuation. Small right lower pole renal stones largest measuring 2 x 4 mm. Normal left kidney. No hydronephrosis, ureteral dilatation or ureteral stone. Small left renal cyst. No imaging follow-up recommended. No perinephric stranding. BLADDER: Not optimally distended. GASTROINTESTINAL TRACT: There is question of mild wall thickening of the transverse and left colon versus changes due to underdistention.. The small and large bowel are otherwise unremarkable. The appendix is not seen. ABDOMINAL WALL: No significant hernia is appreciated. LYMPH NODES: Small, small bowel mesentery and retroperitoneal lymph nodes. No enlarged lymph nodes. No ascites. VASCULAR: Unremarkable. PELVIC VISCERA: Unremarkable. OSSEOUS STRUCTURES: Degenerative changes of the spine and hip joints. CT/CT abdomen pelvis w IV con IMPRESSION: Question mild wall thickening of the transverse and left colon versus changes due to underdistention. Small right renal stones. Small liver cysts. Fleischner guidelines were followed.
[2022-09-19 08:18] VITALS: BP 186/102; PULSE 110; RESP 20; TEMP 37; O2SAT 99; BMI 22.0
[2022-09-19 08:31] LABS: Hematocrit 42.5 % (37.0-47.0); Hemoglobin 15.1 g/dl (12.0-16.0); Mean Corpuscular HGB Conc 35.5 g/dl (31.0-35.0); Mean Corpuscular Hemoglobin 32.3 pg (27.0-33.0); Mean Corpuscular Volume 90.8 fL (80.0-98.0); Mean Platelet Volume 10.5 fL (9.4-12.3); Platelet Count 202 X10*3/uL (160-400); Red Blood Count 4.68 X10*6/uL (4.20-5.50); Red Cell Distribution Width 11.3 % (11.0-16.0); White Blood Count 6.1 X10*3/uL (4.8-10.8)
[2022-09-19 08:47] LABS: Alanine Aminotransferase 28 U/L (0-31); Albumin Level 4.3 g/dL (3.5-5.0); Alkaline Phosphatase 66 U/L (39-117); Anion Gap 17 (12-20); Aspartate Amino Transferase 31 U/L (5-31); Bilirubin Direct 0.3 mg/dL (0.0-0.5); Bilirubin Total 1.1 mg/dL (0.0-1.0); Blood Urea Nitrogen 14 mg/dL (9-16); Calcium 10.1 mg/dL (8.4-10.2); Carbon Dioxide 25 mmol/L (22-29); Chloride 102 mmol/L (96-108); Creatinine Clr Calc Pharmacy 59.4; Estimated Glomerular Filt Rate 54; Glucose Random 122 mg/dL (60-115); Lipase 45 U/L (8-78); Potassium 4.2 mmol/L (3.3-5.1); Sodium 140 mmol/L (135-145); Total Protein 7.3 g/dL (6.5-8.0)
--- NOTE | 2022-09-19 09:04 | ED_ITS ---
HPI - Abdominal Pain General Chief Complaint: Abdominal Pain Stated Complaint: abd and back pain Time Seen by Provider: 09/19/22 08:27 Source: patient Mode of arrival: ambulatory Limitations: no limitations History of Present Illness HPI narrative: 49-year-old female presents with back pain and abdominal pain. Symptoms started last Monday associated with some nausea, vomiting and diarrhea. Symptoms became somewhat violent on Monday. They have started to improve over the last couple days. However, since then she has developed low back pain on the left side. It radiates left lower quadrant of the abdomen. The pain can be worse with movement. There is no further nausea vomiting. She has had continued watery diarrhea with no blood in stool. She denies any urinary frequency, urgency or dysuria. She denies any hematuria. She has had no fevers or chills. She has been off antibiotics for 1 month. The pain is described as sharp in nature. There has been no prior treatment. She did try liquid Clens diet. Related Data Home Medications Medication Instructions Recorded Confirmed cholecalciferol (vitamin D3) 10 10 mcg PO DAILY 02/01/20 02/03/21 mcg (400 unit) capsule cyclosporine 0.05 % eye drops in a 1 drp ophthalmic (eye) Q12H 02/01/20 02/03/21 dropperette (Restasis) multivitamin 1 cap PO DAILY 02/01/20 02/03/21 vitamin B complex (B 1 tab PO DAILY 02/01/20 02/03/21 Complex-Vitamin B12 tablet) clindamycin 1.2 % (1 % 1 appl topical DAILY 02/03/21 02/03/21 base)-benzoyl peroxide 5 % topical gel [id number] 333 mg-133 tab PO 05/10/22 mg-5 mg tablet metronidazole 0.75 % topical cream appl topical QPM 05/10/22 minocycline 100 mg capsule 100 mg PO 05/10/22 krill oil 500 mg capsule mg PO 05/24/22 Previous Rx's Medication Instructions Recorded pantoprazole 40 mg tablet,delayed 40 mg PO DAILY #90 tabs 07/12/22 release peg 3350-electrolytes 236 240 ml PO Q10M 1 day #4,000 mL 09/12/22 gram-22.74 gram-6.74 gram-5.86 gram solution (Golytely) cyclobenzaprine 10 mg tablet 10 mg PO TID PRN muscle spasm #10 09/19/22 tabs Allergies Allergy/AdvReac Type Severity Reaction Status Date / Time No Known Allergies Allergy Verified 02/07/22 08:23 [No Known Allergies*] [facility] Past Medical History Medical History Cervical paraspinal muscle spasm COVID-19 vaccine series completed Decreased pedal pulses Dyslipidemia Eczema of both hands Fracture of fifth metacarpal bone of left hand Fracture of metacarpal bone of left hand GERD (gastroesophageal reflux disease) History of anxiety disorder History of chickenpox Impaired fasting glucose Loose stools Mixed dyslipidemia Numbness and tingling of foot Osteopenia of left hip Osteopenia of right hip Palmar nodule Rash of face Smoker unmotivated to quit Surgical menopause Surgical History History of appendectomy History of esophagogastroduodenoscopy (EGD) History of hysterectomy, supracervical abdominal (subtotal) Hx of colonoscopy Family History Family History Father Hypertension Mother Diabetes Stroke Brother Hypercholesteremia Brother Hypertension Social History Social History Housing: House Alcohol intake: current Alcohol intake frequency: 0-2 drinks per day Alcohol type: beer and wine Patient Tobacco Use Status: Current everyday Tobacco user Tobacco use type: Cigarette Cigarettes Per Day: 10 Years Smoked: 40 Smoked in Last 30 Days: Yes e-Cigarette/Vaping Use: Never Used Second Hand Smoke Exposure: Yes Use of substances other than those prescribed or required for medical reasons: No Advance Directives: No Advance Directives Information Provided: Yes Patient : No service: No Current occupational status: employed Cognitive needs: No Hearing needs: No Vision needs: Yes Physical Exam ED Vital Signs: Vital Signs - 24 hr 09/19/22 08:18 09/19/22 09:09 Temperature 98.6 F Pulse Rate 110 H 90 Respiratory Rate 20 16 Blood Pressure 186/102 H 138/89 Pulse Oximetry 99 99 Oxygen Delivery Method Room Air Room Air BMI result Body Mass Index 22.0 GEN: Well developed, no acute distress, alert, oriented HEENT: Normocephalic, atraumatic, normal external ears, nose appears normal, no oropharyngeal edema or exudates Eyes: Normal to appearance Neck: Supple, no lymphadenopathy Respiratory: Talks in complete sentences, no respiratory distress, clear to auscultation bilaterally Cardiovascular: Regular rate and rhythm, no murmurs rubs or gallops Abdomen: Soft, LLQ tnderness with guarding, nondistended, no rebound Back: No CVA tenderness Extremities: No clubbing cyanosis or edema Neurologic: No focal neurologic deficits, cranial nerves 2-12 intact, strength is 5/5 bilaterally Skin: No rash Course Course Course Narrative: 57-year-old female presents with left lower quadrant abdominal pain and flank pain. Examination revealed tenderness. There is no CVA tenderness. Most likely, patient either has gastroenteritis, colitis or diverticulitis. I will provide the patient with analgesia, IV fluids to rehydrate her from the vomiting and diarrhea. Will re-evaluate following imaging studies and laboratory analysis. Reevaluation(s) Reevaluation #1: The workup is complete. There is no identifying etiology of patient's symptoms. Her predominant complaint at this time is left lower back pain. She does have some pyuria but not significantly so. Would hold off on antibiotic treatment as she is asymptomatic from a urinary tract standpoint and she is actively having diarrhea. This was discussed the patient as well. She will follow-up with the hepatic cyst. All questions were addressed and answered. We discussed diet, use of Imodium, analgesics, etc.. Time: 10:56 Medical Decision Making Medical Decision Making [facility] Narrative: Patient presents with left lower quadrant abdominal pain and flank pain. Differential diagnosis is broad in could include diverticulitis, colitis, IBD, IBS, gastroenteritis, pyelonephritis, renal colic, radiculopathy. Doubt aneurysm or dissection. Doubt catastrophic abdominal pathology. She has no red flag symptoms or exam findings. Workup will include imaging studies, laboratory analysis. I will provide the patient with hydration and analgesia. She has no active nausea vomiting. Will hold off on antiemetic treat Differential Diagnosis Differential Diagnoses: The differential diagnosis associated with the presentation includes (See above) Admission/Observation Consideration of admission/observation: Escalation of care including admission/observation considered Lab Data MDM Lab Attestation statement: I reviewed the patient's lab results. 09/19/22 08:25 09/19/22 08:25 Labs: Lab Results 05/09/19/22 09/19/22 Range/Units 08:25 08:25 09:08 WBC 6.1 (4.8-10.8) X10*3/uL RBC 4.68 (4.20-5.50) X10*6/uL Hgb 15.1 (12.0-16.0) g/dl Hct 42.5 (37.0-47.0) % MCV 90.8 (80.0-98.0) fL MCH 32.3 (27.0-33.0) pg MCHC 35.5 H (31.0-35.0) g/dl RDW 11.3 (11.0-16.0) % Plt Count 202 (160-400) X10*3/uL MPV 10.5 (9.4-12.3) fL Absolute Nucleated RBC 0.000 (0.0-0.012) X10*3/uL Nucleated RBC % (auto) 0.0 (0.0-0.2) /100WBC Sodium 140 (135-145) mmol/L Potassium 4.2 (3.3-5.1) mmol/L Chloride 102 (96-108) mmol/L Carbon Dioxide 25 (22-29) mmol/L Anion Gap 17 (12-20) BUN 14 (9-16) mg/dL Creatinine 1.04 (0.5-1.4) mg/dL Estim Creat Clear Calc 59.4 Estimated GFR 54 Random Glucose 122 H (60-115) mg/dL Calcium 10.1 (8.4-10.2) mg/dL Total Bilirubin 1.1 H (0.0-1.0) mg/dL Direct Bilirubin 0.3 (0.0-0.5) mg/dL AST 31 (5-31) U/L ALT 28 (0-31) U/L Alkaline Phosphatase 66 (39-117) U/L Total Protein 7.3 (6.5-8.0) g/dL Albumin 4.3 (3.5-5.0) g/dL Lipase 45 (8-78) U/L Urine Color Yellow Urine Appearance Hazy Urine pH 5.5 (5.0-9.0) Ur Specific Muse >= 1.030 H (1.005-1.025) Urine Protein 30 (1+) H (Neg-Trace) mg/dL Urine Glucose (UA) 100 H (Negative) mg/dL Urine Ketones 15 (Negative) mg/dL Urine Blood Trace (Negative) Urine Nitrite Negative (Negative) Ur Leukocyte Esterase Negative (Negative) Urine RBC 11-20 H (0-2) /HPF Urine WBC 0-5 (0-5) /HPF Ur Squamous Epith Cells 6-10 (0-2) /HPF Calcium Oxalate Crystal Present Urine Bacteria Trace (None Seen) Hyaline Casts >20 (0-2) /LPF Independent Interpretation I performed an independent interpretation of an: CT Scan (sigmoid wall thickeni ng, no significant stranding. Diverticulosis.) Radiology Impression Discussion of test interpretation with radiology: I have reviewed the radiologist's reading. ( CT/CT abdomen pelvis w IV con IMPRESSION: Question mild wall thickening of the transverse and left colon versus changes due to underdistention. Small right renal stones. Small liver cysts. Fleischner guidelines were followed. Dictated By:Lori Kesslerigned By:<Electronica) Prescription Management I considered prescription management with: Pain Medication Medications Administered Discontinued Medications Generic Name Dose Route Start Last Admin Trade Name Freq PRN Reason Stop Dose Admin Sodium Chloride 1,000 mls @ 999 mls/hr 09/19/22 09:00 09/19/22 09:13 Ns IV 09/19/22 10:00 999 mls/hr .Q1H1M EDMUND Administration Iohexol 85 ml 09/19/22 09:20 09/19/22 09:21 Iohexol 350 Mg/Ml 100 Ml Infus..Btl IV 09/19/22 09:21 85 ml ONCE ONE Administration Ketorolac Tromethamine 15 mg 09/19/22 08:55 09/19/22 10:03 Ketorolac Tromethamine 15 Mg/Ml Vial IVPUSH 09/19/22 08:56 15 mg ONCE ONE Administration Discharge Plan Discharge Clinical Impression: Abdominal pain, Acute left-sided low back pain, Kidney stone, Hepatic cyst Patient Disposition: Home, Self-Care Instructions: Acute Diarrhea (ED), Abdominal Pain (ED), Back Pain (ED) Additional Instructions: I am recommending in 3-6 months with a follow-up ultrasound of the liver to further evaluate the liver cyst. You should discussed with with your primary care provider. Prescriptions: New cyclobenzaprine 10 mg tablet 10 mg PO TID PRN (Reason: muscle spasm) Qty: 10 0RF No Action pantoprazole 40 mg tablet,delayed release (DR/EC) 40 mg PO DAILY Qty: 90 3RF peg 3350-electrolytes [Golytely] 236-22.74-6.74 -5.86 gram recon soln 240 ml PO Q10M 1 Days Qty: 4000 0RF Rx Instructions: until fecal effluent is clear; do not exceed a total volume of 2,000 mL vitamin B complex [B Complex-Vitamin B12] Tablet 1 tab PO DAILY Restasis 0.05 % dropperette 1 drp ophthalmic (eye) Q12H cholecalciferol (vitamin D3) 10 mcg (400 unit) capsule 10 mcg PO DAILY multivitamin Capsule 1 cap PO DAILY clindamycin-benzoyl peroxide 1.2 %(1 % base) -5 % gel 1 appl topical DAILY [id number]-kzugoczmm-zppj 333-133-5 mg tablet PO metronidazole 0.75 % cream topical QPM minocycline 100 mg capsule 100 mg PO krill oil 500 mg capsule PO Referrals: Nita Duke MD [Primary Care Provider] - 1 week
[2022-09-19 09:09] VITALS: BP 138/89; PULSE 90; RESP 16; O2SAT 99
[2022-09-19] MEDS: 0.9 % Sodium Chloride 1,000 ML 999 ML IV (09:13)
[2022-09-19] MEDS: iohexoL 350 MG/ML 100 ML INFUS..BTL 85 ML IV (09:21)
[2022-09-19 09:32] LABS: Appearance Urine Hazy; Color Urine Yellow; Glucose Urine UA 100 mg/dL (Negative); Leukocyte Esterase Urine Negative (Negative); Nitrite Urine Negative (Negative); PH 5.5 (5.0-9.0); Specific Gravity - Urine >= 1.030 (1.005-1.025); UMIC TRIGGER UACC YES; Urine Blood Trace (Negative); Urine Ketones 15 mg/dL (Negative); Urine Protein 30 (1+) mg/dL (Neg-Trace)
[2022-09-19 09:52] LABS: Bacteria Urine Trace (None Seen); Calcium Oxalate Crystals Urine Present; Hyaline Casts Urine >20 /LPF (0-2); WBC Urine 0-5 /HPF (0-5)
[2022-09-19] MEDS: Ketorolac Tromethamine 15 MG/ML VIAL IVPUSH (10:03)
[2022-09-19 11:43] VITALS: BP 152/86; PULSE 69; RESP 16; TEMP 36.7; O2SAT 100
== END 2022-09-19 11:48 | disposition home or self-care (01) ==
PROVIDERS: Emergency Provider Emergency Medicine; PCP Internal Medicine
DX: N20.0 Calculus of kidney (principal); K76.89 Other specified diseases of liver; R10.32 Left lower quadrant pain; M54.50 Low back pain, unspecified; Z79.899 Other long term (current) drug therapy
CPT/HCPCS: 36415; 74177; 80048; 80076; 81001; 83690; 85027; 96374; 99284; J1885; Q9967

== ENCOUNTER 2022-10-17 09:24 | Day surgery (SDC) | payer BC, SELFPAY ==
--- NOTE | 2022-10-14 13:14 | HO.ANESPROP2 ---
Documented by User: Vanessa Garber NP 10/14/22 13:15 HPI - Anesthesia Eval Consult details Narrative: 57yo F for Colonoscopy PMFSH Active Problems Active Problems: All Active Problems (Updated 09/20/22 @ 00:25 by Avtar Ramirez) Pre-op examination (Acute) Palmar nodule (Acute) Mixed dyslipidemia (Acute) Decreased pedal pulses (Acute) Numbness and tingling of foot (Acute) Sessile colonic polyp (Acute) Fracture of metacarpal bone of left hand (Acute) Dysphagia (Acute) Hemorrhoids (Acute) Osteopenia of right hip (Acute) Impaired fasting glucose (Acute) Cervical paraspinal muscle spasm (Acute) Osteopenia of left hip (Acute) Smoker unmotivated to quit (Acute) GERD (gastroesophageal reflux disease) (Acute) Past Medical History Medical History Cervical paraspinal muscle spasm COVID-19 vaccine series completed Decreased pedal pulses Dyslipidemia Eczema of both hands Fracture of fifth metacarpal bone of left hand Fracture of metacarpal bone of left hand GERD (gastroesophageal reflux disease) History of anxiety disorder History of chickenpox Impaired fasting glucose Loose stools Mixed dyslipidemia Numbness and tingling of foot Osteopenia of left hip Osteopenia of right hip Palmar nodule Rash of face Smoker unmotivated to quit Surgical menopause Family History Family History Father Hypertension Mother Diabetes Stroke Brother Hypercholesteremia Brother Hypertension Family history of problems with anesthesia: No Surgical History Surgical History History of appendectomy History of esophagogastroduodenoscopy (EGD) History of hysterectomy, supracervical abdominal (subtotal) Hx of colonoscopy History of Problems with Anesthesia: No Social History Social History Housing: House Alcohol intake: current Alcohol intake frequency: 0-2 drinks per day Alcohol type: beer and wine Patient Tobacco Use Status: Current everyday Tobacco user Tobacco use type: Cigarette Cigarettes Per Day: 10 Years Smoked: 40 e-Cigarette/Vaping Use: Never Used Second Hand Smoke Exposure: Yes Are you DNR?: No Advance Directives: No Advance Directives Information Provided: Yes Recently lost weight without trying: No Nutrition Risks: No Nutritional Risk service: No Current occupational status: employed Cognitive needs: No Hearing needs: No Vision needs: Yes Meds Allergies Allergy/AdvReac Type Severity Reaction Status Date / Time No Known Allergies Allergy Verified 02/07/22 08:23 [No Known Allergies*] Home Medications Medication Instructions Recorded Confirmed Last Taken Type cholecalciferol (vitamin D3) 10 10 mcg PO DAILY 02/01/20 10/13/22 10/14/22 History mcg (400 unit) capsule cyclosporine 0.05 % eye drops in a 1 drp ophthalmic (eye) Q12H 02/01/20 10/13/22 10/17/22 History dropperette (Restasis) multivitamin 1 cap PO DAILY 02/01/20 10/13/22 10/14/22 History vitamin B complex (B 1 tab PO DAILY 02/01/20 10/13/22 10/14/22 History Complex-Vitamin B12 tablet) [id number] 333 mg-133 tab PO 05/10/22 10/14/22 History mg-5 mg tablet krill oil 500 mg capsule mg PO 05/24/22 10/10/22 History Exam Exam Date and Time: October 14, 2022 1314 Pertinent Lab Results Pertinent Lab Results: Laboratory Tests 09/19/22 09/19/22 08:25 08:25 WBC 6.1 Hgb 15.1 Hct 42.5 Plt Count 202 Sodium 140 Potassium 4.2 Chloride 102 Carbon Dioxide 25 BUN 14 Creatinine 1.04 Assessment and Plan Assessment Anesthesia Assessment: Chart Reviewed Final Anesthetic Review Family History of Problems with Anesthesia: No History of Problems with Anesthesia: No Documented by User: Dominga Montoya MD 10/17/22 11:08 [facility] Past Medical History Medical History Cervical paraspinal muscle spasm COVID-19 vaccine series completed Decreased pedal pulses Dyslipidemia Eczema of both hands Fracture of fifth metacarpal bone of left hand Fracture of metacarpal bone of left hand GERD (gastroesophageal reflux disease) History of anxiety disorder History of chickenpox Impaired fasting glucose Loose stools Mixed dyslipidemia Numbness and tingling of foot Osteopenia of left hip Osteopenia of right hip Palmar nodule Rash of face Smoker unmotivated to quit Surgical menopause Family History Family History Father Hypertension Mother Diabetes Stroke Brother Hypercholesteremia Brother Hypertension Surgical History Surgical History History of appendectomy History of esophagogastroduodenoscopy (EGD) History of hysterectomy, supracervical abdominal (subtotal) Hx of colonoscopy Social History Social History Housing: House Alcohol intake: current Alcohol intake frequency: 0-2 drinks per day Alcohol type: beer and wine Patient Tobacco Use Status: Current everyday Tobacco user Tobacco use type: Cigarette Cigarettes Per Day: 10 Years Smoked: 40 e-Cigarette/Vaping Use: Never Used Second Hand Smoke Exposure: Yes Are you DNR?: No Advance Directives: No Advance Directives Information Provided: Yes Recently lost weight without trying: No Nutrition Risks: No Nutritional Risk service: No Current occupational status: employed Cognitive needs: No Hearing needs: No Vision needs: Yes Meds Allergies Allergy/AdvReac Type Severity Reaction Status Date / Time No Known Allergies Allergy Verified 02/07/22 08:23 [No Known Allergies*] Home Medications Medication Instructions Recorded Confirmed Last Taken Type cholecalciferol (vitamin D3) 10 10 mcg PO DAILY 02/01/20 10/13/22 10/14/22 History mcg (400 unit) capsule cyclosporine 0.05 % eye drops in a 1 drp ophthalmic (eye) Q12H 02/01/20 10/13/22 10/17/22 History dropperette (Restasis) multivitamin 1 cap PO DAILY 02/01/20 10/13/22 10/14/22 History vitamin B complex (B 1 tab PO DAILY 02/01/20 10/13/22 10/14/22 History Complex-Vitamin B12 tablet) bnyomut-drdtimwvo-bhav 333 mg-133 tab PO 05/10/22 10/14/22 History mg-5 mg tablet krill oil 500 mg capsule mg PO 05/24/22 10/10/22 History Exam Airway Mallampati Class: II (crowns lateral, small mouth opening) TM Dist: >3cm Neck ROM: Full Heart: rrr Lungs: cta Assessment and Plan Assessment Anesthesia Assessment: Anesthesia Plan Discussed Final Anesthetic Review NPO: Yes ASA Class: II Final Preanesthetic Review: No Changes in Pt Med Stat, Meds/Allgs Chart Reviewed and Consent Obtained/Reviewed Patient Risk: Intermediate Procedure Risk: Intermediate Anesthetic Plan Anesthetic Plan: MAC: Disposition: Standard PACU
[2022-10-17 09:09] VITALS: BMI 22.8
[2022-10-17 10:38] VITALS: BP 164/134; PULSE 81; RESP 18; TEMP 36.3; O2SAT 98; BMI 22.0
[2022-10-17] MEDS: Lactated Ringers 1,000 ML 100 ML IVCONT (11:05)
--- NOTE | 2022-10-17 11:15 | P.HPSUR_ITS ---
Pre-Procedural Eval Section A Date of Service: 10/17/22 The patient is an INPATIENT: No The History & Physical has been completed within 30 days and I have reviewed it.: No Section B Chief Complaint: Screening,polyp of colon,unspecified hemorrhoids Relevant Family History (Specify if Yes): No Relevant Social History: Tobacco Use Present Medications: see Short Stay Collaborative assessment Medical History: Significant History (Dyslipidemia Eczema of both hands Fracture of fifth metacarpal bone of left hand Fracture of metacarpal bone of left hand GERD (gastroesophageal reflux disease) History of anxiety disorder History of chickenpox Impaired fasting glucose Loose stools Mixed dyslipidemia Numbness and tingling of foot Os) History of Previous Operations: Relevant previous surgery/procedure and date(s) (History of appendectomy History of esophagogastroduodenoscopy (EGD) History of hysterectomy, supracervical abdominal (subtotal) Hx of colonoscopy) Allergies: Allergies Allergy/AdvReac Type Severity Reaction Status Date / Time No Known Allergies Allergy Verified 02/07/22 08:23 [No Known Allergies*] Review of Systems Sugical H&P ROS: Negative: Constitution, Cardiovascular, Respiratory and Ga strointestinal Exam Surgical H&P Exam: Normal: Heart, Normal: Lungs, Normal: Extremities and Normal: Abdomen Plan Diagnosis/Plan: Unchanged I have reviewed the history and physical and performed a pertinent physical examination on my patient. No changes have occurred unless specified. Time Spent With Patient Time: Total time managing care of this patient today ____ minutes.
--- NOTE | 2022-10-17 11:44 | W.PM.OPN ---
Operative Note Operative Note Date of Service: 10/17/22 Narrative: COLONOSCOPY TILL CECUM WITH BIOPSIES Pre-op diagnosis: Colon cancer screening, follow-up of colon polyps Post-op diagnosis:? Colon polyps, diverticulosis, hemorrhoids Endoscopist:? Camron Santiago MD Anesthesia:?MAC Consent: Indications for the procedure and potential complications of bleeding, perforation, reaction to medications and missed diagnosis were discussed with the patient and informed consent was obtained. Instrument: Olympus PCF H 190 L variable stiffness pediatric colonoscope Monitoring: Vital signs and clinical assessment, intermittent blood pressure monitoring, continuous EKG monitoring, Pulse oximetry and Carbon Dioxide monitoring were done throughout the procedure. Please see anesthesia flowsheet. Colon withdrawl time was 13 minutes. Procedure: The patient was placed in the left lateral decubitis position and pre-procedure medications were administered. After a digital rectal examination of the ano-rectum, the video colonoscope was inserted into the rectum and advanced through the colon to the cecum. The colonoscope was slowly withdrawn in a retrograde panoramic fashion and the colon mucosa was carefully examined including a retroflexed view of the rectum. Findings and interventions are described below. Procedure Difficulty: LLQ pressure applied to intubate the ascending colon Findings: Terminal Ileum: Not evaluated Cecum: A 4-5 mm sessile polyp - removed with a cold biopsy Ascending Colon: Polypectomy site at 80 cms was examined and no recurrent/residual polyp visualized Transverse Colon: A 3-4 mm sessile polyp - removed with a cold biopsy Descending Colon: Moderate diverticulosis Sigmoid Colon: A 3-4 mm sessile polyp - removed with a cold biopsy. Moderate diverticulosis Rectum: Normal Ano-rectum: Moderate internal hemorrhoids Colon preparation: Excellent Impression and Post Procedure Diagnosis: Colonoscopy Findings: Three small polyps removed Moderate diverticulosis seen in the left colon Moderate hemorrhoids on retroflexed exam. Plan: Await pathology results Patient has an appointment on 11/22/22 in the GI Clinic with Jyotsna Triana NP . Repeat Colonoscopy interval based on path results - in 3-5 years if polyps are adenomatous and due to a hx of adenomatous colon polyps Above findings were reviewed with the patient and colon polyps and diverticulosis handouts were given in the discharge area
[2022-10-17 11:45] VITALS: BP 147/82
[2022-10-17 12:20] VITALS: BP 113/66; PULSE 77; RESP 16; TEMP 36.5; O2SAT 97
[2022-10-17 12:35] VITALS: BP 149/83; PULSE 60; RESP 16; TEMP 36.5; O2SAT 100
== END 2022-10-17 13:39 | disposition home or self-care (01) ==
PROVIDERS: PCP Internal Medicine; Visit Provider Internal Medicine Gastroenterology
PROC: 0DJD8ZZ Inspection of Lower Intestinal Tract, Via Natural or Artificial Opening Endoscopic (ICD-10-PCS; CPT 45378; principal; 2022-10-17 11:20)
DX: Z12.11 Encounter for screening for malignant neoplasm of colon (principal); Z86.010 Personal history of colon polyps; D12.0 Benign neoplasm of cecum; K63.5 Polyp of colon; K57.30 Diverticulosis of large intestine without perforation or abscess without bleeding; K64.8 Other hemorrhoids; K21.9 Gastro-esophageal reflux disease without esophagitis; R73.01 Impaired fasting glucose; E78.5 Hyperlipidemia, unspecified; M62.838 Other muscle spasm; F41.1 Generalized anxiety disorder; L25.9 Unspecified contact dermatitis, unspecified cause; Z79.899 Other long term (current) drug therapy; F17.210 Nicotine dependence, cigarettes, uncomplicated; Z98.890 Other specified postprocedural states
CPT/HCPCS: 45380; 88305; J2250

== ENCOUNTER 2022-11-22 15:41 | Outpatient (AMB) | payer BC, SELFPAY ==
--- NOTE | 2022-11-22 15:47 | A.OFFVIS_ITS ---
Intake Vital Signs 11/22/22 15:51 Height 5 ft 8 in Weight 147 lb 11.355 oz BMI 22.5 BP 141/84 H Blood Pressure Location Lt brachial Position Sitting Pulse 84 Intake Visit Reasons: Follow up colonoscopy Intake Note: Valerie presents in the office today in colonoscopy follow up. CC: Patient reports LUQ abdominal discomfort. She states that in August she got really ill with vomits and diarrhea. She was told that they find a cyst on her liver and that she will need to follow up for another US. She also reports feeling gassy . Denies other GI symptoms. 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 She continues on protonix qd, ? re: calcium we discuss - she takes a supplement. She continues with fiber, fiber cookies do better than the mix in water for her. Her hemorrhoids are still bothersome, she uses OTC prep H and lidocaine.? She does not require any new treatments at this time. She is due for repeat screening colonoscopy because she had a rather large polyp removed in 2019.? She has no prior trouble with anesthesia or sedation. She denies any cardiac or respiratory problems. She denies any infectious diseases. She has a great deal of anxiety and may need some Ativan prior to the procedure which is what we did for her last time. Return office visit in 6 months or after the colonoscopy depending on which comes 1st. (2) Hemorrhoids: ?Code(s): K64.9 - Unspecified hemorrhoids (3) Sessile colonic polyp: ?Comment: 2 TA's 2020 scope >1cm repeat 2 years (WANTS LOW VOLUME PREP NEXT TIME) ?Code(s): K63.5 - Polyp of colon (4) Dysphagia: ?Code(s): R13.10 - Dysphagia, unspecified (5) Pre-op examination: ?Code(s): Z01.818 - Encounter for other preprocedural examination COLONOSCOPY 10/17/22 Findings: Terminal Ileum: Not evaluated Cecum:? A 4-5 mm sessile polyp - removed with a cold biopsy Ascending Colon:? Polypectomy site at 80 cms was examined and no recurrent/residual polyp visualized Transverse Colon:? A 3-4 mm sessile polyp - removed with a cold biopsy Descending Colon:? Moderate diverticulosis Sigmoid Colon:? A 3-4 mm sessile polyp - removed with a cold biopsy. Moderate diverticulosis Rectum:? Normal Ano-rectum:? Moderate internal hemorrhoids Colon preparation: Excellent ? Impression and Post Procedure Diagnosis: Colonoscopy Findings: Three small polyps removed Moderate diverticulosis seen in the left colon Moderate hemorrhoids on retroflexed exam. Plan: Await pathology results Patient has an appointment on 11/22/22 in the GI Clinic with? Jyotsna Triana NP . Repeat Colonoscopy interval based on path results - in 3-5 years if polyps are adenomatous and due to a hx of adenomatous colon polyps BIOPSY Received: 10/17/22 Diagnosis A.? Cecum, polypectomy:? Tubular adenoma; negative for high-grade dysplasia or carcinoma. B.? Colon, transverse, polypectomy:? Colonic mucosa with prominent lymphoid aggregate; no dysplasia seen. C.? Colon, sigmoid, polypectomy:? Hyperplastic mucosal polyp. TODAY'S VISIT The procedure should be repeated in 5 years r/t the cecal small TA. The procedure was well tolerated. The results were explained and the patient is agreeable to the follow-up interval as stated. The bowel pattern has returned to normal. Education was provided to tell any 1st degree relatives about their findings to be sure that they are screened by age 45. Educated that they will be put on a recall list when it is time for their repeat scope but should they move out of state or away from the hospital they will need to remember along with their primary to repeat the procedure in a timely fashion to avoid any adverse complications. She continues on her fiber cookies and her pantoprazole 40mg qd. She has been more gassy recently, but this seemed to start after she suddenly developed severe N/V/D and was seen in the ER and had a largely negative work up with d/c dx of gastroenteritis. She eats 5 yogurts a day and bought a probiotic and this likely will be good. Also discussed Gas-X. ROV 6 weeks. [facility] Medical History Cervical paraspinal muscle spasm COVID-19 vaccine series completed Decreased pedal pulses Dyslipidemia Eczema of both hands Fracture of fifth metacarpal bone of left hand Fracture of metacarpal bone of left hand GERD (gastroesophageal reflux disease) History of anxiety disorder History of chickenpox Impaired fasting glucose Loose stools Mixed dyslipidemia Numbness and tingling of foot Osteopenia of left hip Osteopenia of right hip Palmar nodule Rash of face Smoker unmotivated to quit Surgical menopause Surgical History History of appendectomy History of esophagogastroduodenoscopy (EGD) History of hysterectomy, supracervical abdominal (subtotal) Hx of colonoscopy Family History Father Hypertension Mother Diabetes Stroke Brother Hypercholesteremia Brother Hypertension Social History Housing: House Alcohol intake: current Alcohol intake frequency: 0-2 drinks per day Alcohol type: beer and wine Patient Tobacco Use Status: Current everyday Tobacco user Tobacco use type: Cigarette Cigarettes Per Day: 10 Years Smoked: 40 e-Cigarette/Vaping Use: Never Used Second Hand Smoke Exposure: Yes service: No Current occupational status: employed Cognitive needs: No Hearing needs: No Vision needs: Yes Review of Systems Const Denies fatigue, Denies fever(s), Denies night sweats, Denies poor appetite and Denies weight loss Eyes Details: Glasses Reports requires corrective lenses ENT Reports Normal hearing present, Denies dental pain, Denies dysphagia, Denies hearing loss, Denies mouth pain, Denies odynophagia, Denies throat swelling, Denies tongue swelling and Reports other (Dentition adequate) Card Reports no additional complaints Resp Reports no additional complaints GI Denies abdominal pain, Denies melena, Reports bloating, Denies hematochezia, Reports constipation, Reports GI cramping (Left upper quadrant), Denies dysphagia, Denies excessive flatus, Denies early satiety, Reports heartburn, Denies diarrhea, Denies nausea, Denies odynophagia, Denies vomiting and Denies hematemesis Skin/Breast Denies pruritus, Denies lesions, Denies rash and Denies jaundice Neuro Reports Normal hearing present and Denies Abnormal speech present Endo Denies fatigue Aller/Immun Denies throat swelling and Denies tongue swelling Physical Exam Vital Signs: Last Vital Signs Pulse 84 11/22/22 15:51 BP 141/84 H 11/22/22 15:51 BMI result Body Mass Index 22.5 Const General: cooperative, no acute distress, well developed and well groomed Nutritional Appearance: average body habitus and well nourished Orientation/consciousness: oriented to person, oriented to place and oriented to time Limitations: No language barrier HEENT Head: Yes normocephalic and Yes atraumatic Eyes General: appearance normal, both eyes and all related structures Pupils: Equal, round and reactive pupils present Neck Neck: Yes normal visual inspection and Yes no lymphadenopathy Thyroid: Thyroid normal Resp Effort & Inspection: normal respiratory effort and able to speak in complete sentences Auscultation: clear to auscultation bilaterally Cardio Rate: regular rate Rhythm: regular rhythm Heart sounds: Normal, physiologic split S2 sound present Peripheral pulses: radial pulses present and posterior tibial pulses present GI Inspection: No distended and No Abdominal panniculus present Palpation (GI): Soft to palpation, nontender, no guarding, not rigid and No hepatosplenomegaly present Percussion: Yes normal to percussion Auscultation: normal bowel sounds Rectal Exam - Female: deferred Skin General skin exam: no rashes or lesions noted, turgor normal, skin not dry, no jaundice, No spider nevi and no striae Rashes: no rashes Nails: normal Neuro General: oriented to person, oriented to place and oriented to time Cranial nerves: Yes Equal, round and reactive pupils present and Yes Normal hearing present Speech: No Abnormal speech present Extrem General: Yes normal to inspection, No clubbing, No cyanosis and No edema Psych Appearance: grossly normal and well kempt Mental Status: mental status grossly normal Speech and movement: Normal speech and movement present Affect: Anxious affect present Attitude: cooperative Thought process: Normal thought process present and not confabulating Thought content: Normal thought content present Insight: Fair insight present (Psych) Judgement: Fair judgement present (Psych) Assessment & Plan Assessment & Plan (1) Sessile colonic polyp: Comment: 2022 scope equaled 1 small TA repeat in 5 years; 2 TA's 2020 scope >1cm repeat 2 years (WANTS LOW VOLUME PREP NEXT TIME) Code(s): K63.5 - Polyp of colon Plan: The procedure should be repeated in 5 years r/t the cecal small TA. The procedure was well tolerated. The results were explained and the patient is agreeable to the follow-up interval as stated. The bowel pattern has returned to normal. Education was provided to tell any 1st degree relatives about their findings to be sure that they are screened by age 45. Educated that they will be put on a recall list when it is time for their repeat scope but should they move out of state or away from the hospital they will need to remember along with their primary to repeat the procedure in a timely fashion to avoid any adverse complications. She continues on her fiber cookies and her pantoprazole 40mg qd. She has been more gassy recently, but this seemed to start after she suddenly developed severe N/V/D and was seen in the ER and had a largely negative work up with d/c dx of gastroenteritis. She eats 5 yogurts a day and bought a probiotic and this likely will be good. Also discussed Gas-X. ROV 6 weeks. (2) GERD (gastroesophageal reflux disease): Code(s): K21.9 - Gastro-esophageal reflux disease without esophagitis (3) Abdominal bloating: Code(s): R14.0 - Abdominal distension (gaseous) Coding Level of Care Code Est Pt Level 3 (33702) Diagnoses Sessile colonic polyp K63.5 GERD (gastroesophageal reflux disease) K21.9 Abdominal bloating R14.0
[2022-11-22 15:51] VITALS: BP 141/84; PULSE 84; BMI 22.5
== END 2022-11-22 16:19 | disposition home or self-care (01) ==
PROVIDERS: Visit Provider Nurse Practitioner
DX: K63.5 Polyp of colon (principal); K21.9 Gastro-esophageal reflux disease without esophagitis; R14.0 Abdominal distension (gaseous)
CPT/HCPCS: 99213

== ENCOUNTER → 2022-11-22 15:41 | Outpatient (BNVA) | payer BC, SELFPAY | PROVIDERS: Visit Provider Nurse Practitioner ==

== ENCOUNTER 2023-01-10 15:35 | Outpatient (AMB) | payer BC, SELFPAY ==
--- NOTE | 2023-01-10 15:37 | MHC.OFFVIS ---
Intake Vital Signs 01/10/23 15:40 Height 5 ft 8 in Weight 149 lb BMI 22.7 BP 143/91 H Blood Pressure Location Lt brachial Position Sitting Pulse 87 Intake Visit Reasons: 6 week follow up Intake Note: Valerie presents in the office today in 6 weeks follow up. CC: Patient reports she continues to have same symptoms as she was on vacation and did not take her medications or watched what she ate or drink. [employer] Required: No Accompanied by: Self / Same As Patient Allergies No Known Allergies [No Known Allergies*] Allergy (Verified 01/10/23 15:46) HPI 6 week follow up HPI Details Assessment & Plan (1) Sessile colonic polyp: Comment: 2022 scope equaled 1 small TA repeat in 5 years; 2 TA's 2020 scope >1cm repeat 2 years (WANTS LOW VOLUME PREP NEXT TIME) Code(s): K63.5 - Polyp of colon Plan: The procedure should be repeated in 5 years r/t the cecal small TA. The procedure was well tolerated. The results were explained and the patient is agreeable to the follow-up interval as stated. The bowel pattern has returned to normal. Education was provided to tell any 1st degree relatives about their findings to be sure that they are screened by age 45. Educated that they will be put on a recall list when it is time for their repeat scope but should they move out of state or away from the hospital they will need to remember along with their primary to repeat the procedure in a timely fashion to avoid any adverse complications. She continues on her fiber cookies and her pantoprazole 40mg qd. She has been more gassy recently, but this seemed to start after she suddenly developed severe N/V/D and was seen in the ER and had a largely negative work up with d/c dx of gastroenteritis. She eats 5 yogurts a day and bought a probiotic and this likely will be good. Also discussed Gas-X. ROV 6 weeks. (2) GERD (gastroesophageal reflux disease): Code(s): K21.9 - Gastro-esophageal reflux disease without esophagitis (3) Abdominal bloating: Code(s): R14.0 - Abdominal distension (gaseous) TODAY'S VISIT She says that she went on vacation so she has not been taking her medications and has not been following a good diet plan. So this makes it difficult to evaluate her total recovery from her presumed gastroenteritis. She is aware that this wrecked havoc on her stomach, but at least she knows why. She does not function well when her schedule is interrupted. This also caused diarrhea and her roids acted up! She bought a probiotic and was taking it qod (r/t expense) she tried the Gas-X but did not take enough before this happened to tell if it helped. ROV 8 weeks. [facility] Medical History (Updated 01/23/23 @ 23:04 by Nita Duke MD) Palmar nodule Mixed dyslipidemia Decreased pedal pulses Numbness and tingling of foot Fracture of metacarpal bone of left hand COVID-19 vaccine series completed Fracture of fifth metacarpal bone of left hand Osteopenia of right hip Impaired fasting glucose Dyslipidemia Rash of face Loose stools Cervical paraspinal muscle spasm Osteopenia of left hip Smoker unmotivated to quit Surgical menopause Eczema of both hands History of chickenpox History of anxiety disorder GERD (gastroesophageal reflux disease) Surgical History History of esophagogastroduodenoscopy (EGD) Hx of colonoscopy History of appendectomy History of hysterectomy, supracervical abdominal (subtotal) Family History Father Hypertension Mother Diabetes Stroke Brother Hypercholesteremia Brother Hypertension Social History Housing: House Alcohol intake: current Alcohol intake frequency: 0-2 drinks per day Alcohol type: beer and wine Patient Tobacco Use Status: Current everyday Tobacco user Tobacco use type: Cigarette Cigarettes Per Day: 10 Years Smoked: 40 e-Cigarette/Vaping Use: Never Used Second Hand Smoke Exposure: Yes service: No Current occupational status: employed Cognitive needs: No Hearing needs: No Vision needs: Yes Review of Systems Const Denies fatigue, Denies fever(s), Denies night sweats, Denies poor appetite and Denies weight loss Eyes Details: glasses Reports requires corrective lenses ENT Reports Normal hearing present, Denies dental pain, Denies dysphagia, Denies hearing loss, Denies mouth pain, Denies odynophagia, Denies throat swelling, Denies tongue swelling and Reports other (Dentition adequate) Card Reports no additional complaints Resp Reports no additional complaints GI Denies abdominal pain, Denies melena, Reports bloating, Reports hematochezia, Denies constipation, Denies GI cramping, Denies dysphagia, Denies excessive flatus, Denies early satiety, Reports heartburn, Reports diarrhea, Denies nausea, Denies odynophagia, Denies vomiting and Denies hematemesis Skin/Breast Denies pruritus, Denies lesions, Denies rash and Denies jaundice Neuro Reports Normal hearing present and Denies Abnormal speech present Endo Denies fatigue Aller/Immun Denies throat swelling and Denies tongue swelling Physical Exam Vital Signs: Last Vital Signs Pulse 87 01/10/23 15:40 BP 143/91 H 01/10/23 15:40 BMI result Body Mass Index 22.7 Const General: cooperative, no acute distress, well developed and well groomed Nutritional Appearance: average body habitus and well nourished Orientation/consciousness: oriented to person, oriented to place and oriented to time Limitations: No language barrier HEENT Head: Yes normocephalic and Yes atraumatic Eyes General: appearance normal, both eyes and all related structures Pupils: Equal, round and reactive pupils present Neck Neck: Yes normal visual inspection and Yes no lymphadenopathy Thyroid: Thyroid normal Resp Effort & Inspection: normal respiratory effort and able to speak in complete sentences Auscultation: clear to auscultation bilaterally Cardio Rate: regular rate Rhythm: regular rhythm Heart sounds: Normal, physiologic split S2 sound present Peripheral pulses: radial pulses present and posterior tibial pulses present GI Inspection: No distended and No Abdominal panniculus present Palpation (GI): Soft to palpation, nontender, no guarding, not rigid and No hepatosplenomegaly present Percussion: Yes normal to percussion Auscultation: normal bowel sounds Rectal Exam - Female: deferred Skin General skin exam: no rashes or lesions noted, turgor normal, skin not dry, no jaundice, No spider nevi and no striae Rashes: no rashes Nails: normal Neuro General: oriented to person, oriented to place and oriented to time Cranial nerves: Yes Equal, round and reactive pupils present and Yes Normal hearing present Speech: No Abnormal speech present Extrem General: Yes normal to inspection, No clubbing, No cyanosis and No edema Psych Appearance: grossly normal and well kempt Mental Status: mental status grossly normal Speech and movement: Normal speech and movement present Affect: normal affect Attitude: cooperative Thought process: Normal thought process present and not confabulating Thought content: Normal thought content present Insight: Fair insight present (Psych) Judgement: Fair judgement present (Psych) Assessment & Plan Assessment & Plan (1) GERD (gastroesophageal reflux disease): Code(s): K21.9 - Gastro-esophageal reflux disease without esophagitis Plan: She says that she went on vacation so she has not been taking her medications and has not been following a good diet plan. So this makes it difficult to evaluate her total recovery from her presumed gastroenteritis. She is aware that this wrecked havoc on her stomach, but at least she knows why. She does not function well when her schedule is interrupted. This also caused diarrhea and her roids acted up! She bought a probiotic and was taking it qod (r/t expense) she tried the Gas-X but did not take enough before this happened to tell if it helped. ROV 8 weeks. (2) Abdominal bloating: Code(s): R14.0 - Abdominal distension (gaseous) (3) Sessile colonic polyp: Comment: 2022 scope equaled 1 small TA repeat in 5 years; 2 TA's 2020 scope >1cm repeat 2 years (WANTS LOW VOLUME PREP NEXT TIME) Code(s): K63.5 - Polyp of colon Medications: Refilled pantoprazole 40 mg PO DAILY 90 tabs 3RF Coding Level of Care Code Est Pt Level 3 (96893) Diagnoses GERD (gastroesophageal reflux disease) K21.9 Abdominal bloating R14.0 Sessile colonic polyp K63.5
[2023-01-10 15:40] VITALS: BP 143/91; PULSE 87; BMI 22.7
== END 2023-01-10 16:06 | disposition home or self-care (01) ==
PROVIDERS: PCP Internal Medicine; Visit Provider Nurse Practitioner
DX: K21.9 Gastro-esophageal reflux disease without esophagitis (principal); R14.0 Abdominal distension (gaseous); K63.5 Polyp of colon
CPT/HCPCS: 99213

== ENCOUNTER → 2023-01-10 15:35 | Outpatient (BNVA) | payer BC, SELFPAY | PROVIDERS: PCP Internal Medicine; Visit Provider Nurse Practitioner ==

== ENCOUNTER 2023-01-31 09:05 | Outpatient (REF) | payer BC, SELFPAY ==
[2023-01-31 11:32] LABS: Estimated Average Glucose 97 mg/dL
[2023-01-31 12:49] LABS: Alanine Aminotransferase 25 U/L (0-31); Aspartate Amino Transferase 26 U/L (5-31); Cholesterol 238 mg/dL (<200); Glucose Fasting 104 mg/dL (60-99); HDL Cholesterol 70 mg/dL (>40); LDL Cholesterol Calculated 130 mg/dL (<100); Triglycerides 190 mg/dL (<150)
[2023-01-31 13:00] LABS: Vitamin D 25-OH Total 55.5 ng/mL (>30)
== END 2023-01-31 09:06 | disposition home or self-care (01) ==
LOC: HO.HMGCLDS 09:05
PROVIDERS: PCP Internal Medicine; Visit Provider Internal Medicine
DX: R73.01 Impaired fasting glucose (principal); E78.2 Mixed hyperlipidemia; M85.851 Other specified disorders of bone density and structure, right thigh; Z78.0 Asymptomatic menopausal state
CPT/HCPCS: 36415; 80061; 82306; 82947; 83036; 84450; 84460

== ENCOUNTER 2023-02-08 07:43 | Outpatient (AMB) | payer BC, SELFPAY ==
--- NOTE | 2023-02-08 07:57 | MHC.PC.OV ---
Vital Signs 02/08/23 07:58 Height 5 ft 8 in Weight 148 lb BMI 22.5 BP 130/80 Blood Pressure Location Lt brachial Position Sitting Pulse 85 Pulse Source Pulse Oximeter Pulse Oximetry (%) 98 Oxygen Delivery Method Room Air Intake Visit Reasons: Physical exam Intake Note: Pt is here today for PE. Allergies No Known Allergies [No Known Allergies*] Allergy (Verified 02/08/23 08:18) Medication List - Last Reconciled 02/08/23 by Nita Duke MD [id number] mg tabs PO cholecalciferol (vitamin D3) 10 mcg PO DAILY cyclosporine 0.05% (Restasis) 1 drp ophthalmic (eye) Q12H krill oil mg PO multivitamin 1 cap PO DAILY pantoprazole 40 mg PO DAILY Saccharomyces boulardii (Daily Probiotic (S. boulardii)) 250 mg PO BID vitamin B complex (B Complex-Vitamin B12 tablet) 1 tab PO DAILY Tobacco use date assessed: 02/08/23 Dental Screening Dental Screen Date: 02/08/23 Did you have a dental visit in the last 12 months?: Yes Did you have a dental problem in the last 6 months where you did not have access to dental care?: No Was dental information given to patient?: Patient has dentist HPI Physical exam HPI Details 58-year-old lady Here today for physical exam. She is up-to-date with her screening mammogram, does at [facility], due for her cervical cancer screening, sees Dr. Beny BRADY, who also ordered her bone density scan several years ago, which showed presence of osteopenia in her left femur and hip. No history of pathologic fractures. She is up-to-date with her screening colonoscopy done earlier this year with removal of 2 polyps 1 tubular adenoma, due for recheck again in [address] Lori Romero for her eye exam, has dry eye syndrome and is myopic. She sees [facility] for her chronic GERD currently on pantoprazole. She takes Krill oil for her mixed dyslipidemia, with recent fasting lipids showing improved LDL cholesterol at 130 but higher triglyceride levels. Patient admits that she does not cook and orders out frequently. She smokes cigarettes, not ready to quit at present time. [facility] Medical History (Updated 02/08/23 @ 08:59 by Nita Duke MD) History of adenomatous polyp of colon Palmar nodule Mixed dyslipidemia Decreased pedal pulses Numbness and tingling of foot Fracture of metacarpal bone of left hand COVID-19 vaccine series completed Fracture of fifth metacarpal bone of left hand Osteopenia of right hip Impaired fasting glucose Dyslipidemia Rash of face Loose stools Cervical paraspinal muscle spasm Osteopenia of left hip Smoker unmotivated to quit Surgical menopause Eczema of both hands History of chickenpox History of anxiety disorder GERD (gastroesophageal reflux disease) Surgical History History of esophagogastroduodenoscopy (EGD) Hx of colonoscopy History of appendectomy History of hysterectomy, supracervical abdominal (subtotal) Family History Father Hypertension Mother Diabetes Stroke Brother Hypercholesteremia Brother Hypertension Social History Housing: House Alcohol intake: current Alcohol intake frequency: 0-2 drinks per day Alcohol type: beer and wine Patient Tobacco Use Status: Current everyday Tobacco user Tobacco use type: Cigarette Cigarettes Per Day: 10 Years Smoked: 40 e-Cigarette/Vaping Use: Never Used Second Hand Smoke Exposure: Yes service: No Current occupational status: employed Cognitive needs: No Hearing needs: No Vision needs: Yes Questionnaire PHQ-9 Over the last 2 weeks, how often have you been bothered by any of the following problems? 1. Little interest or pleasure in doing things: not at all 2. Feeling down, depressed, or hopeless: not at all 3. Trouble falling or staying asleep, or sleeping too much: several days 4. Feeling tired or having little energy: several days 5. Poor appetite or overeating: not at all 6. Feeling bad about yourself - or that you are a failure or have let yourself or your family down: not at all 7. Trouble concentrating on things, such as reading the newspaper or watching television: not at all 8. Moving or speaking so slowly that other people could have noticed. Or the opposite - being so fidgety or restless that you have been moving around a lot more than usual: not at all 9. Thoughts that you would be better off or of hurting yourself in some way: not at all Total score: 2 Depression Screening Interpretation: Negative Depression Screening Done: Yes [id number] - PHQ-9 Billing: Yes Source: Developed by Drs. Shiv Augustin, Flaquita Breen, Alo Riggins and colleagues, with an educational leticia from [employer]. Thrive Questionnaire Date Thrive assessed: 02/08/23 I am a: Patient What is your living situation today?: I have a steady place to live Within the past 12 months, did the food you bought not last and you didn't have the money to get more?: Never true Within the past 12 months, did you worry whether your food would run out before you got money to buy more?: Never true Do you have trouble paying for medicines?: No Do you have trouble getting transportation to medical appointments?: No Do you have trouble paying your heating and electricity bill?: No Do you have trouble taking care of your child, family member or friend?: No Do you have trouble with day-to-day activities such as bathing, preparing meals, shopping, managing finances, etc.?: No Are you currently unemployed and looking for a job?: No Are you interested in more education?: No Please select the resources that you would like help with: None AUDIT C Alcohol Use Questionnaire (AUDIT-C) 1. How often do you have a drink containing alcohol?: 2-3 times a week 2. How many drinks containing alcohol do you have on a typical day when you are drinking?: 1 or 2 3. How often do you have six or more drinks on one occasion?: Never Total Score: 3 GONZÁLEZ-7 AMB Questionnaire GONZÁLEZ-7 Date GONZÁLEZ - 7 assessed: 02/08/23 Feeling nervous, anxious, or on edge: 0 = Not at all Not being able to stop or control worryin = Not at all Worrying too much about different things: 0 = Not at all Trouble relaxin = Not at all Being so restless that it is hard to sit still: 0 = Not at all Becoming easily annoyed or irritable: 0 = Not at all Feeling afraid as if something awful might happen: 0 = Not at all Total GONZÁLEZ-7 score (0-4 normal; 5-9 mild; 10-14 moderate; 15-21 severe): 0 Source: Developed by Drs. Shiv Augustin, Flaquita Breen, Alo Riggins and colleagues, with an educational leticia from [employer]. GONZÁLEZ-7 Assessment Billing GONZÁLEZ-7 Assessment Tool: GONZÁLEZ-7 Assessment [id number] Review of Systems Const Denies fatigue, Denies fever(s), Denies night sweats, Denies poor appetite and Denies weight loss Eyes Details: Sees Dr. Lori Romero Reports requires corrective lenses ENT Reports Normal hearing present, Denies dental pain, Denies dysphagia, Denies hearing loss, Denies mouth pain, Denies odynophagia, Denies throat swelling, Denies tongue swelling and Reports other (Dentition adequate) Card Reports no additional complaints Resp Reports no additional complaints GI Denies abdominal pain, Denies melena, Reports bloating, Reports hematochezia, Reports constipation (Occasional), Denies GI cramping, Denies dysphagia, Denies excessive flatus, Denies early satiety, Reports heartburn, Reports diarrhea, Denies nausea, Denies odynophagia, Denies vomiting and Denies hematemesis Details: sees Dr Swan for her cervical cancer screening and pelvic exam Musc Reports no additional complaints Skin/Breast Denies pruritus, Denies lesions, Denies rash and Denies jaundice Neuro Reports Normal hearing present and Denies Abnormal speech present Psych Reports no additional complaints Endo Denies fatigue Jeremias/Lymph Reports no additional complaints Aller/Immun Denies throat swelling and Denies tongue swelling Physical exam (Primary Care) Vital Signs: Last Vital Signs Pulse 85 02/08/23 07:58 BP 130/80 02/08/23 07:58 Pulse Ox 98 02/08/23 07:58 Oxygen Delivery Method Room Air 02/08/23 07:58 BMI result Body Mass Index 22.5 Tobacco/Smoking Status: Tobacco use Status Tobacco use date assessed 02/08/23 02/08/23 08:02 Patient Tobacco Use Status Current everyday Tobacco 02/08/23 08:02 Tobacco use type Cigarette 02/08/23 08:02 e-Cigarette/Vaping Use Never Used 02/08/23 08:02 Are you ready to quit: No Tobacco cessation counseling provided: Yes PHQ-9: PHQ-9 Score PHQ-9: Total score 2 02/08/23 08:17 Depression Screening Interpretation: Negative Thrive Assessment: Date of Thrive Assessment Date Thrive assessed 02/08/23 02/08/23 08:02 Const General: cooperative, comfortable and no acute distress Orientation/consciousness: patient oriented x3 Limitations: no limitations HENMT Ears: hearing grossly normal bilaterally, external ears normal, TM's normal bilaterally and EAC's normal General nose exam: Normal external nose present and No nasal discharge present Mouth: Normal oral and palatal mucosa present, oropharynx normal and moist mucous membranes Throat: Yes posterior oropharynx normal Eyes General: appearance normal, both eyes and all related structures Conjunctivae: conjunctivae normal Pupils: Equal, round and reactive pupils present EOM: EOMs intact bilaterally Neck Neck: Yes full ROM, Yes no lymphadenopathy and Yes supple Thyroid: Thyroid normal Chest Chest palpation & inspection: normal inspection of the chest Breast/axilla inspection: normal inspection of the breasts Breast/axilla palpation: normal palpation of the breasts and normal palpation of the axillae Resp Effort & Inspection: normal respiratory effort and able to speak in complete sentences Auscultation: clear to auscultation bilaterally Cardio Rate: regular rate Rhythm: regular rhythm Heart sounds: S1 normal heart sound present and S2 normal heart sound present GI Inspection: Yes normal to inspection Palpation (GI): Soft to palpation, nontender and no masses Auscultation: normal bowel sounds Other: sees her [facility] , Dr Swan Back/Spine/Pelvis Cervical Spine: cervical ROM normal, cervical muscular tenderness (Right side) and cervical spasm (Right) Thoracic/Lumbar Spine: thoracic and lumbar spine normal to inspection Skin General skin exam: no rashes or lesions noted Neuro General: patient oriented x3, gait normal, tone normal, moves all extremities, Normal light touch and pain sensation and no focal motor deficits Cranial nerves: Yes Equal, round and reactive pupils present and Yes Normal hearing present Cognition (Neuro): normal cognition Speech: No Abnormal speech present Gait exam (Neuro): Normal gait present Motor exam (neuro): 5/5 motor strength present throughout Extrem General: Yes normal to inspection, Yes full ROM, Yes no joint enlargement, Yes no calf tenderness and Yes normal gait Psych Appearance: grossly normal Mental Status: mental status grossly normal Speech and movement: Normal speech and movement present Affect: normal affect Attitude: cooperative Thought process: Normal thought process present Thought content: Normal thought content present Results Reviewed Results Reviewed: NTERED: 01/31/[address] [facility] [address]: ORDERED: Glu Fasting, AST, ALT, Lipid Panel, Vitamin D 25-OH Test Result Flag Reference Site FBS 104 H 60-99 mg/dL A fasting glucose from 100-125 mg/dl is considered impaired (pre-diabetes). AST (GOT) 26 5-31 U/L ALT (GPT) 25 0-31 U/L Triglyceride 190 H <150 mg/dL Desirable Triglyceride: less than 150 mg/dL Borderline High Triglyceride 150-199 mg/dL High Triglyceride: 200-499 mg/dL Very High Triglyceride: greater than or equal to 5OO mg/dL Cholesterol 238 H <200 mg/dL Desirable Cholesterol: less than 200 mg/dL Borderline High Cholesterol: 200-239 mg/dL High Cholesterol: greater than 239 mg/dL LDL Calculated 130 H <100 mg/dL Desirable LDL: less than 100 mg/dL Near Optimal/Above Optimal LDL: 110-129 mg/dL Borderline High LDL: 130-159 mg/dL High LDL: 160-189 mg/dL Very High LDL: greater than or equal to 190 mg/dL HDL 70 >40 mg/dL Desirable HDL: greater than 40 mg/dL Note: This HDL assay may give artificially low results in patients with liver disease. Vit D 25-OH Tot 55.5 >30 ng/mL Health Based Reference Values* < 20 ng/mL Deficient 20-30 ng/mL Insufficient > 30 ng/mL Sufficient Assessment and Plan Assessment & Plan (1) Annual visit for general adult medical examination with abnormal findings: Code(s): Z00.01 - Encounter for general adult medical examination with abnormal findings Plan: Reviewed recent fasting lab results with patient s. continue with regular dental visit every 6 months and regular eye exams, sees Dr. Lori Romero. Take adequate calcium in diet and vitamin-D 3 at 2000 IU per cap once a day, in addition to weight-bearing exercises to help maintain good muscle tone and weight control. Instructed to do self-breast exam, and continue to get yearly mammogram, already has an appointment for next month, advised to call her OB to order a bone density scan to be scheduled together with her mammogram next month. Up-to-date with her screening colonoscopy due again in 5 years. Flu vaccine given today, reminded to get her COVID booster, and advised to get Shingrix vaccine, up-to-date with Tdap (2) Mixed dyslipidemia: Code(s): E78.2 - Mixed hyperlipidemia Plan: Reviewed recent fasting lipid profile with patient with higher triglycerides, lower LDL cholesterol and good HDL . Continue with Krill oil , in addition to adherence to low-cholesterol diet and regular exercise, at least 30 minutes 3 to 4 times a week. Advised patient to make healthy food choices, eat more fruits, vegetables, whole grains, wild caught fish and low-fat dairy. Limit amount of meat and fried or fatty food products, as well as processed foods and fast foods. (3) History of adenomatous polyp of colon: Code(s): Z86.010 - Personal history of colonic polyps Plan: Due for repeat screening colonoscopy again in [address] Santiago (4) Osteopenia of left hip: Comment: DEXA scan done 02/06/[address] Carranza showed T-score -0.9 in left femoral neck and 0.6 in left total hip Code(s): M85.852 - Other specified disorders of bone density and structure, left thigh Plan: Advised to get an order for bone density scan from her OBGYN to add to the mammogram that was already ordered for next month. Advised to do regular weight-bearing exercise, stop smoking, continue with calcium from dietary sources and continue taking vitamin-D 3 at least 2000 units daily (5) Smoker unmotivated to quit: Code(s): F17.200 - Nicotine dependence, unspecified, uncomplicated Plan: Patient strongly advised to stop smoking, as smoking damages blood vessels, degenerative of joints and spine, damage to lungs and heart., predisposes to developing certain cancers like lung, breast, bladder, colon. Recommended to try decreasing cigarette use by 1-2 cigarettes a day. Advised to monitor what triggers are for smoking so that this can be discussed on the next office visit. We can discuss different options to quit smoking when ready. (6) GERD (gastroesophageal reflux disease): Code(s): K21.9 - Gastro-esophageal reflux disease without esophagitis Qualifiers: Esophagitis presence: without esophagitis Qualified Code(s): K21.9 - Gastro-esophageal reflux disease without esophagitis Plan: Continued on pantoprazole, followed by GI Coding Level of Care Code Est Pt Prev Care 40-64y(89741) Diagnoses Annual visit for general adult medical examination with abnormal findings Z00.01 Mixed dyslipidemia E78.2 History of adenomatous polyp of colon Z86.010 Osteopenia of left hip M85.852 Smoker unmotivated to quit F17.200 Gastroesophageal reflux disease without esophagitis K21.9 Esophagitis presence: without esophagitis Additional Codes GONZÁLEZ-7 Assessment Billing - GONZÁLEZ-7 Assessment Tool: GONZÁLEZ-7 Assessment [id number] ([id number])
[2023-02-08 07:58] VITALS: BP 130/80; PULSE 85; O2SAT 98; BMI 22.5
== END 2023-02-08 08:53 | disposition home or self-care (01) ==
PROVIDERS: Visit Provider Internal Medicine
DX: Z00.01 Encounter for general adult medical examination with abnormal findings (principal); E78.2 Mixed hyperlipidemia; Z86.010 Personal history of colon polyps; M85.852 Other specified disorders of bone density and structure, left thigh; F17.210 Nicotine dependence, cigarettes, uncomplicated; K21.9 Gastro-esophageal reflux disease without esophagitis; Z23 Encounter for immunization
CPT/HCPCS: 90471; 90686; 99396

== ENCOUNTER 2023-03-28 09:50 | Outpatient (AMB) | payer BC, SELFPAY ==
[2023-03-28 09:54] VITALS: BP 137/87; PULSE 91; BMI 22.0
--- NOTE | 2023-03-28 09:54 | A.OFFVIS_ITS ---
Intake Vital Signs 03/28/23 09:54 Height 5 ft 8 in Weight 145 lb BMI 22.0 BP 137/87 Blood Pressure Location Rt brachial Position Sitting Pulse 91 Intake Visit Reasons: follow up diverticulitis Intake Note: Valerie presents in the office today in follow up of diverticulitis. CC: Patient reports she is finally doing better form diverticulitis. She stats medications was horrible and took about a week to kick in . Patient denies hoffmann ving any new GI symptoms today. Instructor Bridge Required: No Accompanied by: Self / Same As Patient Allergies No Known Allergies [No Known Allergies*] Allergy (Verified 05/03/23 09:13) HPI follow up diverticulitis HPI Details Assessment & Plan (1) GERD (gastroesophageal reflux diseas e): Code(s): K21.9 - Gastro-esophageal reflux disease without esophagitis Plan: She says that she went on vacation so she has not been taking her medications and has not been following a good diet plan. So this makes it difficult to evaluate her total recovery from her presumed gastroenteritis. She is aware that this wrecked havoc on her stomach, but at least she knows why. She does not function well when her schedule is interrupted. This also caused diarrhea and her roids acted up! She bought a probiotic and was taking it qod (r/t expense) she tried the Gas-X but did not take enough before this happened to tell if it helped. ROV 8 weeks. (2) Abdominal bloating: Code(s): R14.0 - Abdominal distension (gaseous) (3) Sessile colonic polyp: Comment: 2022 scope equaled 1 small TA repeat in 5 years; 2 TA's 2020 scope >1cm repeat 2 years (WANTS LOW VOLUME PREP NEXT TIME) Code(s): K63.5 - Polyp of colon Medications: Refilled pantoprazole 40 mg PO DAILY 90 tabs 3RF TODAYS VISIT She had a bad bout of TICS that she thinks was triggered by pumpkin seeds. It took a long time for the pain to cease and she still has a feeling of pressure in the LLQ. I last tx'ed with double abx, she had trouble with the flagyl with a bad taste in her mouth. Will give stand by rx for augmentin. She continues on her pantoprazole 40 mg once a day with good control of her GERD. ROV 6 mos. [facility] Medical History History of adenomatous polyp of colon Palmar nodule Mixed dyslipidemia Decreased pedal pulses Numbness and tingling of foot Fracture of metacarpal bone of left hand COVID-19 vaccine series completed Fracture of fifth metacarpal bone of left hand Osteopenia of right hip Impaired fasting glucose Dyslipidemia Rash of face Loose stools Cervical paraspinal muscle spasm Osteopenia of left hip Smoker unmotivated to quit Surgical menopause Eczema of both hands History of chickenpox History of anxiety disorder GERD (gastroesophageal reflux disease) Surgical History History of esophagogastroduodenoscopy (EGD) Hx of colonoscopy History of appendectomy History of hysterectomy, supracervical abdominal (subtotal) Family History Father Hypertension Mother Diabetes Stroke Brother Hypercholesteremia Brother Hypertension Social History Housing: House Alcohol intake: current Alcohol intake frequency: 0-2 drinks per day Alcohol type: beer and wine Patient Tobacco Use Status: Current everyday Tobacco user Tobacco use type: Cigarette Cigarettes Per Day: 10 Years Smoked: 40 e-Cigarette/Vaping Use: Never Used Second Hand Smoke Exposure: Yes service: No Current occupational status: employed Cognitive needs: No Hearing needs: No Vision needs: Yes Review of Systems Const Denies fatigue, Denies fever(s), Denies night sweats, Denies poor appetite and Denies weight loss Eyes Details: glasses Reports requires corrective lenses ENT Reports Normal hearing present, Denies dental pain, Denies dysphagia, Denies hearing loss, Denies mouth pain, Denies odynophagia, Denies throat swelling, Denies tongue swelling and Reports other (Dentition adequate) Card Reports no additional complaints Resp Reports no additional complaints GI Reports abdominal pain, Denies melena, Denies bloating, Denies hematochezia, Denies constipation, Denies GI cramping, Denies dysphagia, Denies excessive flatus, Denies early satiety, Reports heartburn, Denies diarrhea, Denies nausea, Denies odynophagia, Denies vomiting and Denies hematemesis Skin/Breast Denies pruritus, Denies lesions, Denies rash and Denies jaundice Neuro Reports Normal hearing present and Denies Abnormal speech present Endo Denies fatigue Aller/Immun Denies throat swelling and Denies tongue swelling Physical Exam Vital Signs: Last Vital Signs Pulse 91 03/28/23 09:54 BP 137/87 03/28/23 09:54 BMI result Body Mass Index 22.0 Const General: cooperative, no acute distress, well developed and well groomed Nutritional Appearance: average body habitus and well nourished Orientation/consciousness: oriented to person, oriented to place and oriented to time Limitations: No language barrier HEENT Head: Yes normocephalic and Yes atraumatic Eyes General: appearance normal, both eyes and all related structures Pupils: Equal, round and reactive pupils present Neck Neck: Yes normal visual inspection and Yes no lymphadenopathy Thyroid: Thyroid normal Resp Effort & Inspection: normal respiratory effort and able to speak in complete sentences Auscultation: clear to auscultation bilaterally Cardio Rate: regular rate Rhythm: regular rhythm Heart sounds: Normal, physiologic split S2 sound present Peripheral pulses: radial pulses present and posterior tibial pulses present GI Inspection: No distended and No Abdominal panniculus present Palpation (GI): Soft to palpation, Tenderness to palpation present (GI) in the LLQ, no guarding, not rigid and No hepatosplenomegaly present Percussion: Yes normal to percussion Auscultation: normal bowel sounds Rectal Exam - Female: deferred Skin General skin exam: no rashes or lesions noted, turgor normal, skin not dry, no jaundice, No spider nevi and no striae Rashes: no rashes Nails: normal Neuro General: oriented to person, oriented to place and oriented to time Cranial nerves: Yes Equal, round and reactive pupils present and Yes Normal hearing present Speech: No Abnormal speech present Extrem General: Yes normal to inspection, No clubbing, No cyanosis and No edema Psych Appearance: grossly normal and well kempt Mental Status: mental status grossly normal Speech and movement: Normal speech and movement present Affect: normal affect Attitude: cooperative Thought process: Normal thought process present and not confabulating Thought content: Normal thought content present Insight: Fair insight present (Psych) Judgement: Fair judgement present (Psych) Assessment & Plan Assessment & Plan (1) GERD (gastroesophageal reflux disease): Code(s): K21.9 - Gastro-esophageal reflux disease without esophagitis Qualifiers: Esophagitis presence: without esophagitis Qualified Code(s): K21.9 - Gastro-esophageal reflux disease without esophagitis (2) Sessile colonic polyp: Comment: 2022 scope equaled 1 small TA repeat in 5 years; 2 TA's 2020 scope >1cm repeat 2 years (WANTS LOW VOLUME PREP NEXT TIME) Code(s): K63.5 - Polyp of colon (3) Diverticulitis: Code(s): K57.92 - Diverticulitis of intestine, part unspecified, without perforation or abscess without bleeding Plan She had a bad bout of TICS that she thinks was triggered by pumpkin seeds. It took a long time for the pain to cease and she still has a feeling of pressure in the LLQ. I last tx'ed with double abx, she had trouble with the flagyl with a bad taste in her mouth. Will give stand by rx for augmentin. She continues on her pantoprazole 40 mg once a day with good control of her GERD. ROV 6 mos. Medications: New amoxicillin-pot clavulanate 875-125 mg 1 tab PO BID 28 tabs 0RF 14 days K57.92 - Diverticulitis of intestine, part unspecified, without perforation or abscess without bleeding Refilled pantoprazole 40 mg PO DAILY 90 tabs 3RF Coding Level of Care Code Est Pt Level 3 (60792) Diagnoses Gastroesophageal reflux disease without esophagitis K21.9 Esophagitis presence: without esophagitis Sessile colonic polyp K63.5 Diverticulitis K57.92
== END 2023-03-28 10:16 | disposition home or self-care (01) ==
PROVIDERS: PCP Internal Medicine; Visit Provider Nurse Practitioner
DX: K21.9 Gastro-esophageal reflux disease without esophagitis (principal); K63.5 Polyp of colon; K57.92 Diverticulitis of intestine, part unspecified, without perforation or abscess without bleeding
CPT/HCPCS: 99213

== ENCOUNTER → 2023-03-28 09:50 | Outpatient (BNVA) | payer BC, SELFPAY | PROVIDERS: PCP Internal Medicine; Visit Provider Nurse Practitioner ==

== ENCOUNTER 2023-04-21 08:35 | Outpatient (AMB) | payer BC, SELFPAY ==
[2023-04-21 08:57] VITALS: BP 146/88; PULSE 88; TEMP 36.8; O2SAT 99; BMI 22.4
--- NOTE | 2023-04-21 08:57 | MHC.OFFWIV ---
Intake Vital Signs 04/21/23 08:57 Height 5 ft 8 in Weight 147 lb 8 oz BMI 22.4 BP 146/88 H Blood Pressure Location Rt brachial Position Sitting Pulse 88 Pulse Source Pulse Oximeter Temp 98.2 F Temp Source Oral Pulse Oximetry (%) 99 Oxygen Delivery Method Room Air Intake Visit Reasons: EST/possible thrush([phone]) Intake Note: Pt is here today for possible thrush, pt states looks like white film on it. Also started this past week. Patient Tobacco Use Status: Current everyday Tobacco user Allergies No Known Allergies [No Known Allergies*] Allergy (Verified 04/21/23 08:59) Do you need a note to return to daycare/school/sports/work: No HPI EST/possible thrush([phone]) HPI Details This is a 58-year-old female patient who presents today with possible thrush of her tongue. This started about 3 days ago. She has noticed a sour taste in her mouth, and wakes ill for over her tongue. She has tried the brushing her tongue, rinsing mouth, using Kenny etc. without any relief. She recently was on both Flagyl and Levaquin for diverticulitis. Denies any other report of symptoms at this time. [facility] Medical History History of adenomatous polyp of colon Palmar nodule Mixed dyslipidemia Decreased pedal pulses Numbness and tingling of foot Fracture of metacarpal bone of left hand COVID-19 vaccine series completed Fracture of fifth metacarpal bone of left hand Osteopenia of right hip Impaired fasting glucose Dyslipidemia Rash of face Loose stools Cervical paraspinal muscle spasm Osteopenia of left hip Smoker unmotivated to quit Surgical menopause Eczema of both hands History of chickenpox History of anxiety disorder GERD (gastroesophageal reflux disease) Surgical History History of esophagogastroduodenoscopy (EGD) Hx of colonoscopy History of appendectomy History of hysterectomy, supracervical abdominal (subtotal) Family History Father Hypertension Mother Diabetes Stroke Brother Hypercholesteremia Brother Hypertension Social History Housing: House Alcohol intake: current Alcohol intake frequency: 0-2 drinks per day Alcohol type: beer and wine Patient Tobacco Use Status: Current everyday Tobacco user Tobacco use type: Cigarette Cigarettes Per Day: 10 Years Smoked: 40 e-Cigarette/Vaping Use: Never Used Second Hand Smoke Exposure: Yes service: No Current occupational status: employed Cognitive needs: No Hearing needs: No Vision needs: Yes Review of Systems Const All systems reviewed & are unremarkable except as noted in HPI and below Physical Exam Vital Signs: Last Vital Signs Temp 98.2 F 04/21/23 08:57 Pulse 88 04/21/23 08:57 BP 146/88 H 04/21/23 08:57 Pulse Ox 99 04/21/23 08:57 Oxygen Delivery Method Room Air 04/21/23 08:57 BMI result Body Mass Index 22.4 Const General: cooperative, healthy appearing and no acute distress HEENT Head: Yes normal to inspection General nose exam: Normal external nose present Face and sinus: Yes normal facial exam Mouth: tongue abnormal with white coating Neck Neck: Yes no lymphadenopathy Resp Effort & Inspection: normal respiratory effort Skin General skin exam: no rashes or lesions noted Extrem General: Yes no clubbing, cyanosis or edema Psych Appearance: grossly normal Mental Status: mental status grossly normal Speech and movement: Normal speech and movement present Assessment & Plan Assessment & Plan (1) Candidiasis of mouth: Code(s): B37.0 - Candidal stomatitis Plan: Sent fluconazole p.o., and nystatin mouthwash for the patient for thrush of the tongue. Discussed with her the likely cause of this condition is due to recent abx use. Reviewed indications, use of medication. If she does not improve with treatment, she should return to the clinic for further evaluation. She verbalizes understanding and agrees to plan. Medications: New fluconazole may repeat second dose 72 hrs after first dose if symptoms persist 150 mg PO Q3D 2 tabs 0RF 2 doses B37.0 - Candidal stomatitis nystatin swish and swallow 4 mL PO QID 112 mL 0RF 7 days B37.0 - Candidal stomatitis Coding Level of Care Code Est Pt Level 3 (09462) Diagnoses Candidiasis of mouth B37.0
== END 2023-04-21 09:19 | disposition home or self-care (01) ==
PROVIDERS: PCP Internal Medicine; Visit Provider Nurse Practitioner Family
DX: B37.0 Candidal stomatitis (principal)
CPT/HCPCS: 99213

== ENCOUNTER 2023-05-03 08:06 | Outpatient (AMB) | payer BC, SELFPAY ==
[2023-05-03 08:37] VITALS: BP 120/72; PULSE 99; TEMP 36.4; O2SAT 99; BMI 21.6
--- NOTE | 2023-05-03 08:37 | AM.OFFWIN_ITS ---
Intake Vital Signs 05/03/23 08:37 Height 5 ft 8 in Weight 142 lb BMI 21.6 BP 120/72 Blood Pressure Location Lt brachial Position Sitting Pulse 99 Pulse Source Pulse Oximeter Temp 97.5 F Temp Source Temporal Artery Scan Pulse Oximetry (%) 99 Oxygen Delivery Method Room Air Intake Visit Reasons: EP, vomiting, diarrhea ([phone]) Intake Note: pt is here today for vomiting diarrhea started yesterday Patient Tobacco Use Status: Current everyday Tobacco user Allergies No Known Allergies [No Known Allergies*] Allergy (Verified 05/03/23 09:13) Do you need a note to return to daycare/school/sports/work: Yes HPI EP, vomiting, diarrhea ([phone]) HPI Details 58-year-old female presents to [facility] for [facility] sick [facility]. Patient is reporting symptoms of diarrhea for the past 24 hours. Symptoms started suddenly and woke the patient up from sleep. She lives alone and recalls eating leftover food. She has been having diarrhea multiple times without cramping. No fecal incontinence. She had taken 1-2 Pepto-Bismol and her tongue is coated black. This is very concerning to her as she was recently diagnosed with oral candidiasis. [facility] Medical History History of adenomatous polyp of colon Palmar nodule Mixed dyslipidemia Decreased pedal pulses Numbness and tingling of foot Fracture of metacarpal bone of left hand COVID-19 vaccine series completed Fracture of fifth metacarpal bone of left hand Osteopenia of right hip Impaired fasting glucose Dyslipidemia Rash of face Loose stools Cervical paraspinal muscle spasm Osteopenia of left hip Smoker unmotivated to quit Surgical menopause Eczema of both hands History of chickenpox History of anxiety disorder GERD (gastroesophageal reflux disease) Surgical History History of esophagogastroduodenoscopy (EGD) Hx of colonoscopy History of appendectomy History of hysterectomy, supracervical abdominal (subtotal) Family History Father Hypertension Mother Diabetes Stroke Brother Hypercholesteremia Brother Hypertension Social History (Reviewed 04/21/23 @ 09:20 by VIRGILIO Lujan Housing: House Alcohol intake: current Alcohol intake frequency: 0-2 drinks per day Alcohol type: beer and wine Patient Tobacco Use Status: Current everyday Tobacco user Tobacco use type: Cigarette Cigarettes Per Day: 10 Years Smoked: 40 e-Cigarette/Vaping Use: Never Used Second Hand Smoke Exposure: Yes service: No Current occupational status: employed Cognitive needs: No Hearing needs: No Vision needs: Yes Physical Exam Vital Signs: Last Vital Signs Temp 97.5 F 05/03/23 08:37 Pulse 99 05/03/23 08:37 BP 120/72 05/03/23 08:37 Pulse Ox 99 05/03/23 08:37 Oxygen Delivery Method Room Air 05/03/23 08:37 BMI result Body Mass Index 21.6 Const General: cooperative and healthy appearing Nutritional Appearance: well nourished Orientation/consciousness: patient oriented x3 Limitations: no limitations HEENT Other: Oral cavity: Tongue: Black coating on the dorsum of the tongue. Head: Yes normal to inspection Eyes General: appearance normal, both eyes and all related structures Neck Neck: Yes normal visual inspection Chest Chest palpation & inspection: normal palpation of entire chest wall Resp Effort & Inspection: normal respiratory effort Neuro General: patient oriented x3 Assessment & Plan Assessment & Plan (1) Diarrhea: Code(s): R19.7 - Diarrhea, unspecified Plan: Mostly viral and infectious in origin. No antibiotics needed. Self-limiting course and symptoms should resolve on its own. Pepto-Bismol is causing the black discoloration of the tongue. Reassurance. Note for work given. Coding Level of Care Code Est Pt Level 4 (91611) Diagnoses Diarrhea R19.7
== END 2023-05-03 09:15 | disposition home or self-care (01) ==
PROVIDERS: PCP Internal Medicine; Visit Provider Internal Medicine
DX: R19.7 Diarrhea, unspecified (principal)
CPT/HCPCS: 99214

== ENCOUNTER 2023-06-10 09:07 | Outpatient (AMB) | payer BC, SELFPAY ==
[2023-06-10 09:17] VITALS: BP 122/72; PULSE 76; TEMP 36.7; O2SAT 98; BMI 22.0
--- NOTE | 2023-06-10 09:17 | AM.OFFWIN_ITS ---
Intake Vital Signs 06/10/23 09:17 Height 5 ft 8 in Weight 145 lb BMI 22.0 BP 122/72 Blood Pressure Location Rt brachial Position Sitting Pulse 76 Pulse Source Pulse Oximeter Temp 98.0 F Temp Source Oral Pulse Oximetry (%) 98 Oxygen Delivery Method Room Air Intake Visit Reasons: Est/lower back pain (lobby masked) Intake Note: Pt is here today c/o Lt lower back pain Patient Tobacco Use Status: Current everyday Tobacco user Allergies No Known Allergies [No Known Allergies*] Allergy (Verified 06/23/23 00:17) HPI Est/lower back pain (lobby masked) HPI Details Patient is a 58-year-old female comes to the walk-in clinic complaining of low back pain for a while now. She states that symptoms occur after prolonged sitting, and then with position change into standing she feels stiff and tight and needs to move for few minutes for symptoms to resolve. 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 She denies numbness tingling weakness or other lower extremity symptoms involvement. She gives no acute trauma history. She questioned if symptoms could be due to urinary tract infection and requested urine dip today. She denies any other associated urinary symptoms however. [facility] Medical History History of adenomatous polyp of colon Palmar nodule Mixed dyslipidemia Decreased pedal pulses Numbness and tingling of foot Fracture of metacarpal bone of left hand COVID-19 vaccine series completed Fracture of fifth metacarpal bone of left hand Osteopenia of right hip Impaired fasting glucose Dyslipidemia Rash of face Loose stools Cervical paraspinal muscle spasm Osteopenia of left hip Smoker unmotivated to quit Surgical menopause Eczema of both hands History of chickenpox History of anxiety disorder GERD (gastroesophageal reflux disease) Surgical History History of esophagogastroduodenoscopy (EGD) Hx of colonoscopy History of appendectomy History of hysterectomy, supracervical abdominal (subtotal) Family History Father Hypertension Mother Diabetes Stroke Brother Hypercholesteremia Brother Hypertension Social History Housing: House Alcohol intake: current Alcohol intake frequency: 0-2 drinks per day Alcohol type: beer and wine Patient Tobacco Use Status: Current everyday Tobacco user Tobacco use type: Cigarette Cigarettes Per Day: 10 Years Smoked: 40 e-Cigarette/Vaping Use: Never Used Second Hand Smoke Exposure: Yes service: No Current occupational status: employed Cognitive needs: No Hearing needs: No Vision needs: Yes Review of Systems Const All systems reviewed & are unremarkable except as noted in HPI and below Physical Exam Vital Signs: Last Vital Signs Temp 98.0 F 06/10/23 09:17 Pulse 76 06/10/23 09:17 BP 122/72 06/10/23 09:17 Pulse Ox 98 06/10/23 09:17 Oxygen Delivery Method Room Air 06/10/23 09:17 BMI result Body Mass Index 22.0 Normal vital signs, and an unremarkable exam today, other than tenderness with palpation to the left lower paraspinal muscle radiating into the left buttock. Her symptoms do not radiate into the left lower extremity. Normal range of motion and strength to the lower spine and the left leg. The extremity is neurovascularly intact distally General: Yes no CVA tenderness Back/Spine/Pelvis Back: no CVA tenderness Results AMB Urinalysis, Automated UA Leukoctes 0 Yari/uL Last Edit by Beth Booker CMA on 06/10/23 09:33 UA Nitrite Negative Last Edit by Beth Booker CMA on 06/10/23 09:33 UA Urobilinogen 0.2 mg/dL Last Edit by Beth Booker CMA on 06/10/23 09:33 UA Protein 0 mg/dL Last Edit by Beth Booker CMA on 06/10/23 09:33 UA pH 6.0 Last Edit by Beth Booker CMA on 06/10/23 09:33 UA Blood 0 Marc/uL Last Edit by Beth Booker CMA on 06/10/23 09:33 UA Specific [place] 1.020 Last Edit by Beth Booker CMA on 06/10/23 09:33 UA Ketone Negative Last Edit by Beth Booker CMA on 06/10/23 09:33 UA Bilirubin 0 mg/dL Last Edit by Beth Booker CMA on 06/10/23 09:33 UA Glucose 0 mg/dL Last Edit by Beth Booker CMA on 06/10/23 09:33 Results Reviewed Results Reviewed: Laboratory Last Values Urine pH (Auto) 6.0 06/10/23 09:27 Specific [place] (Auto) 1.020 06/10/23 09:27 Urine Protein (Auto) 0 mg/dL 06/10/23 09:27 Glucose (UA)(Auto) 0 mg/dL 06/10/23 09:27 Urine Ketones (Auto) Negative 06/10/23 09:27 Urine Blood (Auto) 0 Marc/uL 06/10/23 09:27 Urine Nitrite (Auto) Negative 06/10/23 09:27 Urine Bilirubin (Auto) 0 mg/dL 06/10/23 09:27 Urine Urobilinogen (Auto) 0.2 mg/dL 06/10/23 09:27 Leukocyte Esterase (Auto) 0 Yari/uL 06/10/23 09:27 Assessment & Plan Assessment & Plan (1) Lumbar strain: Code(s): S39.012A - Strain of muscle, fascia and tendon of lower back, initial encounter Qualifiers: Encounter type: initial encounter Qualified Code(s): S39.012A - Strain of muscle, fascia and tendon of lower back, initial encounter Plan: Patient with apparent left lumbar strain/lumbago. She reports no urinary sympto ms, and requested urine dip unremarkable today. Symptoms seem to be due to musculoskeletal cause, as they occur with extended sitting. She does not have vertebral tenderness today, and reports no significant back history. I offered an x-ray, which she declines today. I offered her a muscle relaxer, which she also declined. We discussed the benefit of anti-inflammatories and heating stretching and massaging to see if this improves symptoms. She desires to start with [id number] Aleve, which should help symptoms. She will also try heating and stretching, and we discussed a lumbar support while sitting. This might be due to her posture or ergonomics at work. She knows to follow up if symptoms persist or worsen, and she will go to the emergency department with worrisome symptoms. Orders: Orders AMB Urinalysis Automated 06/10/23 Z13.9 - Encounter for screening, unspecified Coding Level of Care Code Est Pt Level 4 (41985) Diagnoses Strain of lumbar region, initial encounter S39.012A Encounter type: initial encounter
== END 2023-06-10 12:56 | disposition home or self-care (01) ==
PROVIDERS: PCP Internal Medicine; Visit Provider Physician Assistant Medical
DX: S39.012A Strain of muscle, fascia and tendon of lower back, initial encounter (principal)
CPT/HCPCS: 81003; 99214

== ENCOUNTER 2023-09-27 15:40 | Outpatient (AMB) | payer BC, SELFPAY ==
--- NOTE | 2023-09-27 15:45 | MHC.OFFVIS ---
Vital Signs 09/27/23 15:48 Height 5 ft 8 in Weight 145 lb BMI 22.0 BP 160/89 H Blood Pressure Location Rt brachial Position Sitting Pulse 89 Intake Visit Reasons: 6 month follow up Intake Note: Valerie presents to in office visit today in 6 months follow up of GERD. CC: Patient states that about a month ago she had a diverticulitis flare up and she took the abx prescribed by July. Per patient about 2 weeks ago she had really bad heartburn with pain. She states that whatever affects her upper GI affects her lower GI and she was having rectal bleeding. Campaign Management Specialist Required: No Accompanied by: Self / Same As Patient Allergies No Known Allergies [No Known Allergies*] Allergy (Verified 09/27/23 15:53) HPI HPI 6 month follow up: Details: Assessment & Plan (1) GERD (gastroesophageal reflux disease): Code(s): K21.9 - Gastro-esophageal reflux disease without esophagitis Qualifiers: Esophagitis presence: without esophagitis Qualified Code(s): K21.9 - Gastro-esophageal reflux disease without esophagitis (2) Sessile colonic polyp: Comment: 2022 scope equaled 1 small TA repeat in 5 years; 2 TA's 2020 scope >1cm repeat 2 years (WANTS LOW VOLUME PREP NEXT TIME) Code(s): K63.5 - Polyp of colon (3) Diverticulitis: Code(s): K57.92 - Diverticulitis of intestine, part unspecified, without perforation or abscess without bleeding Plan She had a bad bout of TICS that she thinks was triggered by pumpkin seeds. It took a long time for the pain to cease and she still has a feeling of pressure in the LLQ. I last tx'ed with double abx, she had trouble with the flagyl with a bad taste in her mouth. Will give stand by rx for augmentin. She continues on her pantoprazole 40 mg once a day with good control of her GERD. ROV 6 mos. Medications: New amoxicillin-pot clavulanate 875-125 mg 1 tab PO BID 28 tabs 0RF 14 days K57.92 - Diverticulitis of intestine, part unspecified, without perforation or abscess without bleeding Refilled pantoprazole 40 mg PO DAILY 90 tabs 3RF CORRESPONDENCE On 09/13/23 @ 10:03 Odalys Scanlon Wrote To KongJuly spoke w/ patient and I informed her of below message. patient agreeable. Odalys Scanlon removed from item. On 09/13/23 @ 10:00 Jyotsna Triana Wrote To Jyotsna Triana (2) That 1st sentence is there is very little draw backs to treating thrush. Got to love oral dictation. On 09/13/23 @ 09:59 Jyotsna Triana Wrote To Jyotsna Triana (2) There is very little drop back in treating thrush so I think will treat it see if you improve. Instead of doing the mouthwash and going to send Diflucan which is a pill and easier to do without any errors of administration. This very few side effects to this except if you are taking a statin which I do not see on the list (that would be a cholesterol medication) and even then it is only muscle aches. On 09/13/23 @ 08:27 Odalys Scanlon Wrote To KongJuly patient initially wrote in concerned about s/s possibly due to a hiatal hernia she was dx'd w/ few years back. patient now concerned with ? Thrush. patient has upcoming appt with dentist in a few weeks. patient seen early May, did not has thrush. can I bring this patient in this upcoming Monday if she is able to come in and cancel her other appt at the end of the month? TODAY'S VISIT She had to use her amox because she had a TICS attack, she thinks this was triggered by eating cashews ( I love my nuts! ). She had an episode of severe CP after treatment and she had some relief with Pepto, she called us and I prescribed diflucan as this had been a problem in the past. She had partial resolution, so we will retreat with at 14 days course. Oddly, she asks if the CP could be my HH? But review of past studies shows no HH including past EGD and barium swallow. ROV 6 mos. She asks about hemorrhoid ablation therapy. PFSH Medical History History of adenomatous polyp of colon Palmar nodule Mixed dyslipidemia Decreased pedal pulses Numbness and tingling of foot Fracture of metacarpal bone of left hand COVID-19 vaccine series completed Fracture of fifth metacarpal bone of left hand Osteopenia of right hip Impaired fasting glucose Dyslipidemia Rash of face Loose stools Cervical paraspinal muscle spasm Osteopenia of left hip Smoker unmotivated to quit Surgical menopause Eczema of both hands History of chickenpox History of anxiety disorder GERD (gastroesophageal reflux disease) Surgical History History of esophagogastroduodenoscopy (EGD) Hx of colonoscopy History of appendectomy History of hysterectomy, supracervical abdominal (subtotal) Family History Father Hypertension Mother Diabetes Stroke Brother Hypercholesteremia Brother Hypertension Social History Housing: House Alcohol intake: current Alcohol intake frequency: 0-2 drinks per day Alcohol type: beer and wine Patient Tobacco Use Status: Current everyday Tobacco user Tobacco use type: Cigarette Cigarettes Per Day: 10 Years Smoked: 40 e-Cigarette/Vaping Use: Never Used Second Hand Smoke Exposure: Yes service: No Current occupational status: employed Cognitive needs: No Hearing needs: No Vision needs: Yes Review of Systems Const Denies fatigue, Denies fever(s), Denies night sweats, Denies poor appetite and Denies weight loss Eyes Details: glasses Reports requires corrective lenses ENT Reports Normal hearing present, Denies dental pain, Denies dysphagia, Denies hearing loss, Denies mouth pain, Denies odynophagia, Denies throat swelling, Denies tongue swelling and Reports other (Dentition adequate) Card Reports chest pain Resp Reports no additional complaints GI Details: Reports abdominal pain, Denies melena, Denies bloating, Denies hematochezia, Denies constipation, Denies GI cramping, Denies dysphagia, Denies excessive flatus, Denies early satiety, Reports heartburn, Denies diarrhea, Denies nausea, Denies odynophagia, Denies vomiting and Denies hematemesis Skin/Breast Denies pruritus, Denies lesions, Denies rash and Denies jaundice Neuro Reports Normal hearing present and Denies Abnormal speech present Endo Denies fatigue Aller/Immun Denies throat swelling and Denies tongue swelling Physical Exam Vital Signs: Last Vital Signs Pulse 89 09/27/23 15:48 BP 160/89 H 09/27/23 15:48 BMI result Body Mass Index 22.0 Const General: cooperative, no acute distress, well developed and well groomed Nutritional Appearance: average body habitus and well nourished Orientation/consciousness: oriented to person, oriented to place and oriented to time Limitations: No language barrier HEENT Head: Yes normocephalic and Yes atraumatic Eyes General: appearance normal, both eyes and all related structures Pupils: Equal, round and reactive pupils present Neck Neck: Yes normal visual inspection and Yes no lymphadenopathy Thyroid: Thyroid normal Resp Effort & Inspection: normal respiratory effort and able to speak in complete sentences Auscultation: clear to auscultation bilaterally Cardio Rate: regular rate Rhythm: regular rhythm Heart sounds: Normal, physiologic split S2 sound present Peripheral pulses: radial pulses present and posterior tibial pulses present GI Inspection: No distended and No Abdominal panniculus present Palpation (GI): Soft to palpation, nontender, no guarding, not rigid and No hepatosplenomegaly present Percussion: Yes normal to percussion Auscultation: normal bowel sounds Rectal Exam - Female: deferred Skin General skin exam: no rashes or lesions noted, turgor normal, skin not dry, no jaundice, No spider nevi and no striae Rashes: no rashes Nails: normal Neuro General: oriented to person, oriented to place and oriented to time Cranial nerves: Yes Equal, round and reactive pupils present and Yes Normal hearing present Speech: No Abnormal speech present Extrem General: Yes normal to inspection, No clubbing, No cyanosis and No edema Psych Appearance: grossly normal and well kempt Mental Status: mental status grossly normal Speech and movement: Normal speech and movement present Affect: normal affect Attitude: cooperative Thought process: Normal thought process present and not confabulating Thought content: Normal thought content present Insight: Fair insight present (Psych) and Limited insight present (Psych) Judgement: Fair judgement present (Psych) and Limited judgement present (Psych) Assessment & Plan Assessment & Plan (1) GERD (gastroesophageal reflux disease): Code(s): K21.9 - Gastro-esophageal reflux disease without esophagitis Category: Medical Qualifiers: Esophagitis presence: without esophagitis Qualified Code(s): K21.9 - Gastro-esophageal reflux disease without esophagitis (2) Diverticulitis: Code(s): K57.92 - Diverticulitis of intestine, part unspecified, without perforation or abscess without bleeding Category: Medical (3) Candidiasis of mouth and esophagus: Code(s): B37.81 - Candidal esophagitis; B37.0 - Candidal stomatitis Category: Medical Plan She had to use her amox because she had a TICS attack, she thinks this was triggered by eating cashews ( I love my nuts! ). She had an episode of severe CP after treatment and she had some relief with Pepto, she called us and I prescribed diflucan as this had been a problem in the past. She had partial resolution, so we will retreat with at 14 days course. Oddly, she asks if the CP could be my HH? But review of past studies shows no HH including past EGD and barium swallow. ROV 6 mos. She asks about hemorrhoid ablation therapy. Medications: New amoxicillin-pot clavulanate 875-125 mg 1 tab PO BID 20 tabs 0RF 10 days K57.92 - Diverticulitis of intestine, part unspecified, without perforation or abscess without bleeding fluconazole (Diflucan) 200 mg PO DAILY 14 tabs 0RF 14 days B37.81 - Candidal esophagitis, B37.0 - Candidal stomatitis Coding Level of Care Code Est Pt Level 3 (77267) Diagnoses Gastroesophageal reflux disease without esophagitis K21.9 Esophagitis presence: without esophagitis Diverticulitis K57.92 Candidiasis of mouth and esophagus B37.81; B37.0
[2023-09-27 15:48] VITALS: BP 160/89; PULSE 89; BMI 22.0
== END 2023-09-27 16:16 | disposition home or self-care (01) ==
PROVIDERS: PCP Internal Medicine; Visit Provider Nurse Practitioner
DX: K21.9 Gastro-esophageal reflux disease without esophagitis (principal); K57.92 Diverticulitis of intestine, part unspecified, without perforation or abscess without bleeding; B37.81 Candidal esophagitis; B37.0 Candidal stomatitis
CPT/HCPCS: 99213

== ENCOUNTER → 2023-09-27 15:40 | Outpatient (BNVA) | payer BC, SELFPAY | PROVIDERS: PCP Internal Medicine; Visit Provider Nurse Practitioner ==

== ENCOUNTER 2023-12-01 08:02 | Outpatient (AMB) | payer BC, SELFPAY ==
[2023-12-01 08:03] VITALS: BP 130/82; PULSE 78; TEMP 36.8; O2SAT 98; BMI 22.0
--- NOTE | 2023-12-01 08:03 | AM.OFFWIN_ITS ---
Intake Vital Signs 12/01/23 08:03 Height 5 ft 8 in Weight 145 lb BMI 22.0 BP 130/82 Blood Pressure Location Rt brachial Position Sitting Pulse 78 Pulse Source Pulse Oximeter Temp 98.2 F Temp Source Oral Pulse Oximetry (%) 98 Intake Visit Reasons: EP watery, itchy and red eyes Intake Note: pt is here for watery, itchy eyes Patient Tobacco Use Status: Current everyday Tobacco user Allergies No Known Allergies [No Known Allergies*] Allergy (Verified 12/01/23 08:04) Do you need a note to return to daycare/school/sports/work: No HPI HPI Comments History of Present Illness Details 58 y/o female patient who presents to [facility] walk in clinic with c/o dry itchy eyes since Monday. She does have Dry eyes syndrome in which she is taking Restasis prescribed by her Doctor. She also has facial Acne, which she uses Clindamycin Cream. She has an appointment with Dermatology in January 2024. [facility] Medical History History of adenomatous polyp of colon Palmar nodule Mixed dyslipidemia Decreased pedal pulses Numbness and tingling of foot Fracture of metacarpal bone of left hand COVID-19 vaccine series completed Fracture of fifth metacarpal bone of left hand Osteopenia of right hip Impaired fasting glucose Dyslipidemia Rash of face Loose stools Cervical paraspinal muscle spasm Osteopenia of left hip Smoker unmotivated to quit Surgical menopause Eczema of both hands History of chickenpox History of anxiety disorder GERD (gastroesophageal reflux disease) Surgical History History of esophagogastroduodenoscopy (EGD) Hx of colonoscopy History of appendectomy History of hysterectomy, supracervical abdominal (subtotal) Family History Father Hypertension Mother Diabetes Stroke Brother Hypercholesteremia Brother Hypertension Social History Housing: House Alcohol intake: current Alcohol intake frequency: 0-2 drinks per day Alcohol type: beer and wine Patient Tobacco Use Status: Current everyday Tobacco user Tobacco use type: Cigarette Cigarettes Per Day: 10 Years Smoked: 40 e-Cigarette/Vaping Use: Never Used Second Hand Smoke Exposure: Yes service: No Current occupational status: employed Cognitive needs: No Hearing needs: No Vision needs: Yes Review of Systems Const All systems reviewed & are unremarkable except as noted in HPI and below Physical Exam Vital Signs: Last Vital Signs Temp 98.2 F 12/01/23 08:03 Pulse 78 12/01/23 08:03 BP 130/82 12/01/23 08:03 Pulse Ox 98 12/01/23 08:03 BMI result Body Mass Index 22.0 Const General: comfortable and no acute distress Orientation/consciousness: patient oriented x3 HEENT Head: Yes normocephalic Face and sinus: Yes erythema (Acne pimples present on the face, nose and forehead) Eyes Eyelids: Yes other (Drooping eyelids, very thin skin ) Conjunctivae: conjunctivae normal Pupils: Equal, round and reactive pupils present EOM: EOMs intact bilaterally Neuro General: patient oriented x3, gait normal and moves all extremities Cranial nerves: Yes Equal, round and reactive pupils present Psych Speech and movement: Normal speech and movement present Assessment & Plan Assessment & Plan (1) Acne: Code(s): L70.9 - Acne, unspecified Qualifiers: Acne type: other acne Qualified Code(s): L70.8 - Other acne Plan: F/u with Derm as scheduled Pt will need referral, She sent a portal message to PCP requesting Continue using Clindamycin cream (2) Dry eyes due to decreased tear production: Code(s): H04.129 - Dry eye syndrome of unspecified lacrimal gland Plan: F/u with eye Doctor, Pt to call and make Appointment Continue on Restasis as directed. Coding Level of Care Code Est Pt Level 3 (04904) Diagnoses Other acne L70.8 Acne type: other acne Dry eyes due to decreased tear production H04.129 Time Spent (min) 15
== END 2023-12-01 08:26 | disposition home or self-care (01) ==
PROVIDERS: PCP Internal Medicine; Visit Provider Nurse Practitioner Family
DX: L70.8 Other acne (principal); H04.129 Dry eye syndrome of unspecified lacrimal gland
CPT/HCPCS: 99213

== ENCOUNTER 2024-02-26 07:32 | Outpatient (REF) | payer BC, SELFPAY ==
[2024-02-26 08:45] LABS: Alanine Aminotransferase 29 U/L (0-31); Anion Gap 11 (12-20); Aspartate Amino Transferase 33 U/L (5-31); Blood Urea Nitrogen 15 mg/dL (9-16); Calcium 10.1 mg/dL (8.4-10.2); Carbon Dioxide 30 mmol/L (22-29); Chloride 104 mmol/L (96-108); Cholesterol 258 mg/dL (<200); Estimated Glomerular Filt Rate > 60; Glucose Fasting 109 mg/dL (60-99); HDL Cholesterol 84 mg/dL (>40); LDL Cholesterol Calculated 146 mg/dL (<100); Potassium 4.2 mmol/L (3.3-5.1); Sodium 141 mmol/L (135-145); Triglycerides 140 mg/dL (<150)
[2024-02-26 09:00] LABS: Vitamin D 25-OH Total 68.8 ng/mL (>30)
== END 2024-02-26 07:33 | disposition home or self-care (01) ==
LOC: HO.LAB 07:32
PROVIDERS: PCP Internal Medicine; Visit Provider Internal Medicine
DX: E78.2 Mixed hyperlipidemia (principal); M85.851 Other specified disorders of bone density and structure, right thigh; R73.01 Impaired fasting glucose; M85.852 Other specified disorders of bone density and structure, left thigh; K21.9 Gastro-esophageal reflux disease without esophagitis
CPT/HCPCS: 36415; 80048; 80061; 82306; 84450; 84460

== ENCOUNTER 2024-02-28 08:44 | Outpatient (AMB) | payer BC, SELFPAY ==
[2024-02-28 08:57] VITALS: BP 138/80; PULSE 79; O2SAT 98; BMI 21.7
--- NOTE | 2024-02-28 08:57 | A.OFFPC_ITS ---
Vital Signs 02/28/24 08:57 Height 5 ft 8 in Weight 143 lb BMI 21.7 BP 138/80 Blood Pressure Location Rt brachial Position Sitting Pulse 79 Pulse Source Pulse Oximeter Pulse Oximetry (%) 98 Oxygen Delivery Method Room Air Intake Visit Reasons: PE Intake Note: Pt is here today for her PE: Mammogram 02/14/24, papsmear 06/19/19, colonoscopy 10/17/22 Allergies No Known Allergies [No Known Allergies*] Allergy (Verified 02/28/24 09:31) Medication List - Last Reconciled 02/28/24 by Nita Duke MD [id number] [id number] mg 1 tab PO cholecalciferol (vitamin D3) 10 mcg PO DAILY cyclosporine 0.05% (Restasis) 1 drp ophthalmic (eye) Q12H doxycycline hyclate 50 mg PO BID krill oil 500 mg PO multivitamin 1 cap PO DAILY pantoprazole 40 mg PO DAILY vitamin B complex (B Complex-Vitamin B12 tablet) 1 tab PO DAILY Tobacco use date assessed: 02/28/24 Dental Screening Dental Screen Date: 02/28/24 Did you have a dental visit in the last 12 months?: Yes Did you have a dental problem in the last 6 months where you did not have access to dental care?: No Was dental information given to patient?: Patient has dentist HPI PE HPI Details 59-year-old lady with past medical histo ry significant for mixed dyslip idemia, osteopenia, impaired fasting glucose, Acne, chronic GERD, here today for her physical exam. She is up-to-date with her screen Mammogram done 02/14/24, last pelvic exam and cervical cancer screening was done 06/19/19, and is up-to-date with her screening colonoscopy done 10/17/[address] Santiago with a tubular adenoma and hyperplastic polyp removed, due again in 2027. Has been noticing some bright red blood whenever she wipes after a bowel movement, has history of hemorrhoids, would like to have a referral to [facility] further evaluation and management . [facility] Medical History (Updated 02/28/24 @ 10:02 by Nita Duke MD) Osteopenia of multiple sites History of diverticulitis External hemorrhoid, bleeding History of adenomatous polyp of colon Palmar nodule Mixed dyslipidemia Decreased pedal pulses Numbness and tingling of foot Fracture of metacarpal bone of left hand COVID-19 vaccine series completed Fracture of fifth metacarpal bone of left hand Osteopenia of right hip Impaired fasting glucose Dyslipidemia Rash of face Loose stools Cervical paraspinal muscle spasm Osteopenia of left hip Smoker unmotivated to quit Surgical menopause Eczema of both hands History of chickenpox History of anxiety disorder GERD (gastroesophageal reflux disease) Surgical History History of esophagogastroduodenoscopy (EGD) Hx of colonoscopy History of appendectomy History of hysterectomy, supracervical abdominal (subtotal) Family History Father Hypertension Mother Diabetes Stroke Brother Hypercholesteremia Brother Hypertension Social History Housing: House Alcohol intake: current Alcohol intake frequency: 0-2 drinks per day Alcohol type: beer and wine Patient Tobacco Use Status: Current everyday Tobacco user Tobacco use type: Cigarette Cigarettes Per Day: 10 Years Smoked: 40 e-Cigarette/Vaping Use: Never Used Second Hand Smoke Exposure: Yes service: No Current occupational status: employed Cognitive needs: No Hearing needs: No Vision needs: Yes Questionnaire PHQ-9 Over the last 2 weeks, how often have you been bothered by any of the following problems? 1. Little interest or pleasure in doing things: not at all 2. Feeling down, depressed, or hopeless: not at all 3. Trouble falling or staying asleep, or sleeping too much: not at all 4. Feeling tired or having little energy: not at all 5. Poor appetite or overeating: not at all 6. Feeling bad about yourself - or that you are a failure or have let yourself or your family down: not at all 7. Trouble concentrating on things, such as reading the newspaper or watching television: not at all 8. Moving or speaking so slowly that other people could have noticed. Or the opposite - being so fidgety or restless that you have been moving around a lot more than usual: not at all 9. Thoughts that you would be better off or of hurting yourself in some way: not at all Total score: 0 Depression Screening Interpretation: Negative Depression Screening Done: Yes 60235 - PHQ-9 Billing: Yes Source: Developed by Drs. Shiv Augustin, Flaquita Breen, Alo Riggins and colleagues, with an educational leticia from [employer]. Thrive Questionnaire Date Thrive assessed: 02/28/24 I am a: Parent/Caregiver What is your living situation today?: I have a steady place to live Within the past 12 months, did the food you bought not last and you didn't have the money to get more?: Never true Within the past 12 months, did you worry whether your food would run out before you got money to buy more?: Never true Do you have trouble paying for medicines?: No Do you have trouble getting transportation to medical appointments?: No Do you have trouble paying your heating and electricity bill?: No Do you have trouble taking care of your child, family member or friend?: No Do you have trouble with day-to-day activities such as bathing, preparing meals, shopping, managing finances, etc.?: No Are you currently unemployed and looking for a job?: No Are you interested in more education?: No Please select the resources that you would like help with: None Currently or been in a relationship where the following occur: No concerns reported THRIVE Score: 0 AUDIT C Alcohol Use Questionnaire (AUDIT-C) 1. How often do you have a drink containing alcohol?: 4 or more times a week 2. How many drinks containing alcohol do you have on a typical day when you are drinking?: 1 or 2 3. How often do you have six or more drinks on one occasion?: Less than monthly Total Score: 5 GONZÁLEZ-7 AMB Questionnaire GONZÁLEZ-7 Date GONZÁLEZ - 7 assessed: 02/28/24 Feeling nervous, anxious, or on edge: 0 = Not at all Not being able to stop or control worryin = Not at all Worrying too much about different things: 0 = Not at all Trouble relaxin = Not at all Being so restless that it is hard to sit still: 0 = Not at all Becoming easily annoyed or irritable: 0 = Not at all Feeling afraid as if something awful might happen: 0 = Not at all Total GONZÁLEZ-7 score (0-4 normal; 5-9 mild; 10-14 moderate; 15-21 severe): 0 Source: Developed by Drs. Shiv Augustin, Flaquita Breen, Alo Riggins and colleagues, with an educational leticia from [employer]. GONZÁLEZ-7 Assessment Billing GONZÁLEZ-7 Assessment Tool: GONZÁLEZ-7 Assessment 38391 Review of Systems Const Denies fatigue, Denies fever(s), Denies night sweats, Denies poor appetite and Denies weight loss Eyes Details: Sees Dr. Lori Romero Reports requires corrective lenses ENT Reports Normal hearing present, Denies dental pain, Denies dysphagia, Denies hearing loss, Denies mouth pain, Denies odynophagia, Denies throat swelling, Denies tongue swelling and Reports other (Dentition adequate) Card Reports no additional complaints Resp Reports no additional complaints GI Denies abdominal pain, Denies melena, Reports bloating, Reports hematochezia, Reports constipation (Occasional), Denies GI cramping, Denies dysphagia, Denies excessive flatus, Denies early satiety, Reports heartburn, Reports diarrhea, Denies nausea, Denies odynophagia, Denies vomiting and Denies hematemesis Details: sees Dr Swan for her cervical cancer screening and pelvic exam Musc Reports no additional complaints Skin/Breast Denies pruritus, Denies lesions, Denies rash and Denies jaundice Neuro Reports Normal hearing present and Denies Abnormal speech present Psych Reports no additional complaints Endo Denies fatigue Jeremias/Lymph Reports no additional complaints Aller/Immun Denies throat swelling and Denies tongue swelling Physical exam (Primary Care) Vital Signs: Last Vital Signs Pulse 79 02/28/24 08:57 BP 138/80 02/28/24 08:57 Pulse Ox 98 02/28/24 08:57 Oxygen Delivery Method Room Air 02/28/24 08:57 BMI result Body Mass Index 21.7 Tobacco/Smoking Status: Tobacco use Status Tobacco use date assessed 02/28/24 02/28/24 09:05 Patient Tobacco Use Status Current everyday Tobacco 02/28/24 09:05 Tobacco use type Cigarette 02/28/24 09:05 e-Cigarette/Vaping Use Never Used 02/28/24 09:05 Are you ready to quit: No Tobacco cessation counseling provided: Yes PHQ-9: PHQ-9 Score PHQ-9: Total score 0 02/28/24 09:52 Depression Screening Interpretation: Negative Thrive Assessment: Date of Thrive Assessment Date Thrive assessed 02/08/23 02/28/24 09:05 Currently or been in a relationship where the following occur: No concerns reported Advance Care Planning discussion: Completed/Scanned Date of discussion: 02/28/24 Who was present: Patient Forms completed: Health Care Proxy Time spent: 16-45 minutes Actual minutes spent: 3 Const General: cooperative, comfortable and no acute distress Orientation/consciousness: patient oriented x3 Limitations: no limitations HENMT Ears: hearing grossly normal bilaterally, external ears normal, TM's normal bilaterally and EAC's normal General nose exam: Normal external nose present and No nasal discharge present Mouth: Normal oral and palatal mucosa present, oropharynx normal and moist mucous membranes Throat: Yes posterior oropharynx normal Eyes General: appearance normal, both eyes and all related structures Conjunctivae: conjunctivae normal Pupils: Equal, round and reactive pupils present EOM: EOMs intact bilaterally Neck Neck: Yes full ROM, Yes no lymphadenopathy and Yes supple Thyroid: Thyroid normal Chest Chest palpation & inspection: normal inspection of the chest Breast/axilla inspection: normal inspection of the breasts Breast/axilla palpation: normal palpation of the breasts and normal palpation of the axillae Resp Effort & Inspection: normal respiratory effort and able to speak in complete sentences Auscultation: clear to auscultation bilaterally Cardio Rate: regular rate Rhythm: regular rhythm Heart sounds: S1 normal heart sound present and S2 normal heart sound present GI Inspection: Yes normal to inspection Palpation (GI): Soft to palpation, nontender and no masses Auscultation: normal bowel sounds Other: sees her OB-MOTHER SUPERIOR , Dr Swan Back/Spine/Pelvis Cervical Spine: cervical ROM normal, cervical muscular tenderness (Right side) and cervical spasm (Right) Thoracic/Lumbar Spine: thoracic and lumbar spine normal to inspection Skin Other: Scattered acneiform lesions lower face Neuro General: patient oriented x3, gait normal, tone normal, moves all extremities, Normal light touch and pain sensation and no focal motor deficits Cranial nerves: Yes Equal, round and reactive pupils present and Yes Normal hearing present Cognition (Neuro): normal cognition Speech: No Abnormal speech present Gait exam (Neuro): Normal gait present Motor exam (neuro): 5/5 motor strength present throughout Extrem General: Yes normal to inspection, Yes full ROM, Yes no joint enlargement, Yes no calf tenderness and Yes normal gait Psych Appearance: grossly normal Mental Status: mental status grossly normal Speech and movement: Normal speech and movement present Affect: normal affect Attitude: cooperative Thought process: Normal thought process present Thought content: Normal thought content present Office Procedures Flu Questionnaire Does the patient have a severe egg allergy?: No Does the patient have severe life threatening allergies?: No Does the patient have a fever or illness today?: No Has the patient ever had Guillain-Montezuma Syndrome?: No Has the patient ever had any past reaction to a flu shot?: No Immunizations Fluarix Triv 1117-4168 (PF) 45 mcg (15 mcg x 3)/0.5 mL IM syringe Performing Provider: Nita Duke MD Performing Location: [facility] Administered by: Beth Booker CMA on 02/28/24 09:27 Dose Route Admin Location Dispensed Lot Number Expiration Date [employer] Monitor 0.5 mL IM Right Deltoid 0.5 mL [id number] 10/28/24 88811-605-[address] [employer] VIS Given Date VIS Provided VIS Publication Date 02/28/24 Single Vaccine 20 Eligibility Eligibility Date Funding Source Not [facility] Eligible 02/28/24 Private Results Reviewed Results Reviewed: Name: Valerie Salcido Age/Sex: 59/F : 1965 Unit#: [id number] Attend Dr: Nita Duke MD Re02/26/24 Status: DEP REF Location: [facility] Disch: SPEC : [id number] EMI: 02/26/24 STATUS: COMP REQ : [id number] RECD: 02/26/[address]: Nita Duke MD COMP: 02/26/24 ENTERED: 02/26/[address]: ORDERED: Met Prof Fast, AST, ALT, Lipid Panel, Vitamin D 25-OH Test Result Flag Reference Sodium 141 135-145 mmol/L Potassium 4.2 3.3-5.1 mmol/L CL 104 96-108 mmol/L CO2 30 H 22-29 mmol/L Gap 11 L 12-20 BUN 15 9-16 mg/dL Creat 0.88 0.5-1.4 mg/dL EGFR > 60 NOTE: For -[place] individuals, multiply the result by 1.210. Chronic Kidney Disease: Estimated GFR < 60 mL/min/1.73m2 Severe Kidney Disease: Estimated GFR < 15 mL/min/1.73m2 FBS 109 H 60-99 mg/dL A fasting glucose from 100-125 mg/dl is considered impaired (pre-diabetes). CA 10.1 8.4-10.2 mg/dL AST (GOT) 33 H 5-31 U/L ALT (GPT) 29 0-31 U/L Triglyceride 140 <150 mg/dL Desirable Triglyceride: less than 150 mg/dL Borderline High Triglyceride 150-199 mg/dL High Triglyceride: 200-499 mg/dL Very High Triglyceride: greater than or equal to 5OO mg/dL Cholesterol 258 H <200 mg/dL Desirable Cholesterol: less than 200 mg/dL Borderline High Cholesterol: 200-239 mg/dL High Cholesterol: greater than 239 mg/dL LDL Calculated 146 H <100 mg/dL Desirable LDL: less than 100 mg/dL Near Optimal/Above Optimal LDL: 110-129 mg/dL Borderline High LDL: 130-159 mg/dL High LDL: 160-189 mg/dL Very High LDL: greater than or equal to 190 mg/dL HDL 84 >40 mg/dL Desirable HDL: greater than 40 mg/dL Note: This HDL assay may give artificially low results in patients with liver disease. Vit D 25-OH Tot 68.8 >30 ng/mL Health Based Reference Values* < 20 ng/mL Deficient 20-30 ng/mL Insufficient > 30 ng/mL Sufficient Coding Level of Care Code Est Pt Prev Care 40-64y(49118) Diagnoses Annual visit for general adult medical examination with abnormal findings Z00.01 External hemorrhoid, bleeding K64.4 Other acne L70.8 Acne type: other acne Mixed dyslipidemia E78.2 Osteopenia of multiple sites M85.89 Smoker unmotivated to quit F17.200 Advanced directives, counseling/discussion Z71.89 Additional Codes Vital Signs *Quality* - Advance Care Planning discussion: Completed/Scanned ([id number]) Vital Signs *Quality* - Time spent: 16-45 minutes ([id number]) GONZÁLEZ-7 Assessment Billing - GONZÁLEZ-7 Assessment Tool: GONZÁLEZ-7 Assessment 35655 ([id number]) Assessment & Plan Assessment & Plan (1) Annual visit for general adult medical examination with abnormal findings: Code(s): Z00.01 - Encounter for general adult medical examination with abnormal findings Plan: Latest fasting labs reviewed with patient. s. Recommended dental visit every 6 months and regular eye exams, at least every 2 years. Take adequate calcium in diet and vitamin-D 3 at 2000 IU per cap once a day, in addition to weight- bearing exercises to help maintain good muscle tone and weight control. Instructed to do self-breast exam, and to get yearly mammogram, , and sees Dr. Swan for her routine Pap and pelvic exam. Flu vaccine given today. Reminded to get a COVID booster, up-to-date with her shingles vaccination Tdap. Anoscopy done by Dr. Santiago in 2020 showed removal of a tubular adenoma, repeat due again in 2025 (2) External hemorrhoid, bleeding: Code(s): K64.4 - Residual hemorrhoidal skin tags Category: Medical Plan: Referred to [facility] for further evaluation treatment per patient request,, advise patient that if they do not do surgical excision of hemorrhoid, will refer to [facility] [place] (3) Acne: Code(s): L70.9 - Acne, unspecified Category: Medical Qualifiers: Acne type: other acne Qualified Code(s): L70.8 - Other acne Plan: Currently on doxycycline hyclate 50 mg twice a day (4) Mixed dyslipidemia: Code(s): E78.2 - Mixed hyperlipidemia Category: Medical Plan: Continue Krill oil, reinforced importance of following a low-cholesterol diet and getting regular exercise. Goal LDL cholesterol less than 100 mg/dL (5) Osteopenia of multiple sites: Code(s): M85.89 - Other specified disorders of bone density and structure, multiple sites Category: Medical Plan: Reinforced importance of doing regular weight-bearing exercise, continue taking calcium through dietary sources, take vitamin-D 3 supplements at least 2000 units daily (6) Smoker unmotivated to quit: Code(s): F17.200 - Nicotine dependence, unspecified, uncomplicated Category: Social Hx Plan: Patient strongly advised to stop smoking, as smoking damages blood vessels, degenerative of joints and spine, damage to lungs and heart., predisposes to developing certain cancers like lung, breast, bladder, colon. Recommended to try decreasing cigarette use by 1-2 cigarettes a day. Advised to monitor what triggers are for smoking so that this can be discussed on the next office visit. We can discuss different options to quit smoking when ready. (7) Advanced directives, counseling/discussion: Code(s): Z71.89 - Other specified counseling Plan: Initiated the conversation about Advanced Directives. Advanced Directives help patients prepare for current and future decisions about their medical treatment and place of care. Discussed with patient that it is a process where a patients current condition and prognosis are reviewed, their wishes for information regarding their illness are elicited, and likely medical dilemmas are presented and options discussed. Healthcare proxy form completed today. The form can be amended as needed, reviewed yearly and make changes as needed Orders: Orders Influenza [id number] Immunization 02/28/24 Z23 - Encounter for immunization Referrals Vascular Surgery Referral K64.4 - Residual hemorrhoidal skin tags
== END 2024-02-28 10:07 | disposition home or self-care (01) ==
LOC: HO.HMCC 08:44
PROVIDERS: PCP Internal Medicine; Visit Provider Internal Medicine
DX: Z00.01 Encounter for general adult medical examination with abnormal findings (principal); K64.4 Residual hemorrhoidal skin tags; L70.8 Other acne; E78.2 Mixed hyperlipidemia; M85.89 Other specified disorders of bone density and structure, multiple sites; F17.200 Nicotine dependence, unspecified, uncomplicated; Z71.89 Other specified counseling; Z00.00 Encounter for general adult medical examination without abnormal findings

== ENCOUNTER → 2024-02-28 08:44 | Outpatient (BNVA) | payer BC, SELFPAY | PROVIDERS: PCP Internal Medicine; Visit Provider Internal Medicine | DX: Z00.01 Encounter for general adult medical examination with abnormal findings (principal); K64.4 Residual hemorrhoidal skin tags; L70.8 Other acne; E78.2 Mixed hyperlipidemia; M85.89 Other specified disorders of bone density and structure, multiple sites; F17.210 Nicotine dependence, cigarettes, uncomplicated; Z71.89 Other specified counseling; Z23 Encounter for immunization | CPT/HCPCS: 90471; 90656; 96127 ==

== ENCOUNTER 2024-03-09 10:57 | Outpatient (AMB) | payer BC, SELFPAY ==
[2024-03-09 11:21] VITALS: BP 104/64; PULSE 78; TEMP 36.6; O2SAT 100; BMI 21.9
--- NOTE | 2024-03-09 11:21 | AM.OFFWIN_ITS ---
Intake Vital Signs 03/09/24 11:21 Height 5 ft 8 in Weight 144 lb BMI 21.9 BP 104/64 Blood Pressure Location Lt brachial Position Sitting Pulse 78 Pulse Source Pulse Oximeter Temp 97.9 F Temp Source Oral Pulse Oximetry (%) 100 Oxygen Delivery Method Room Air Intake Visit Reasons: EP-Sore throat 2D Intake Note: Pt is here today c/o sore throat x2days Patient Tobacco Use Status: Current everyday Tobacco user Allergies No Known Allergies [No Known Allergies*] Allergy (Verified 03/09/24 12:01) Medication List - Last Reconciled 03/09/24 by GRACIE Flores [id number] [id number] mg 1 tab PO cholecalciferol (vitamin D3) 10 mcg PO DAILY cyclosporine 0.05% (Restasis) 1 drp ophthalmic (eye) Q12H doxycycline hyclate 100 mg PO BID krill oil 500 mg PO multivitamin 1 cap PO DAILY pantoprazole 40 mg PO DAILY vitamin B complex (B Complex-Vitamin B12 tablet) 1 tab PO DAILY HPI HPI Comments History of Present Illness Details 59-year-old female here today with compl aints of a sore throat that started 2 days ago, associated with painful swallowing and swollen lymph nodes. She has been using [id number] Victorina-[employer]ants and lozenges which do provide short-lived relief. She denies any fever, chills, abdominal pain, nausea or vomiting. Did a home COVID test negative yesterday. + smoker Exam Awake alert oriented, no acute distress Positive cervical adenopathy shotty bilat Exudative pharyngitis Plan Despite negative strep test, we will treat her based on clinical exam. Augmentin twice per day for 7 days. Educated to take with food. Educated on reasons to return to the office or seek additional care. This note is constructed using voice recognition software. While every effort has been made to ensure accuracy in administrator of home health, still errors may have been included Sometimes, these errors may affect the content or meaning of the given sentence . Total time spent caring for the patient today was 30 minutes. This includes time spent before the visit reviewing the chart, time spent during the visit, and time spent after the visit on documentation [facility] Medical History (Updated 03/09/24 @ 12:10 by Dinorah L O'Noé, DOBBY LOOM CHAIN PEGGER-BC) Osteopenia of multiple sites History of diverticulitis External hemorrhoid, bleeding History of adenomatous polyp of colon Palmar nodule Mixed dyslipidemia Decreased pedal pulses Numbness and tingling of foot Fracture of metacarpal bone of left hand COVID-19 vaccine series completed Fracture of fifth metacarpal bone of left hand Osteopenia of right hip Impaired fasting glucose Dyslipidemia Rash of face Loose stools Cervical paraspinal muscle spasm Osteopenia of left hip Smoker unmotivated to quit Surgical menopause Eczema of both hands History of chickenpox History of anxiety disorder GERD (gastroesophageal reflux disease) Surgical History History of esophagogastroduodenoscopy (EGD) Hx of colonoscopy History of appendectomy History of hysterectomy, supracervical abdominal (subtotal) Family History Father Hypertension Mother Diabetes Stroke Brother Hypercholesteremia Brother Hypertension Social History Housing: House Alcohol intake: current Alcohol intake frequency: 0-2 drinks per day Alcohol type: beer and wine Patient Tobacco Use Status: Current everyday Tobacco user Tobacco use type: Cigarette Cigarettes Per Day: 10 Years Smoked: 40 e-Cigarette/Vaping Use: Never Used Second Hand Smoke Exposure: Yes service: No Current occupational status: employed Cognitive needs: No Hearing needs: No Vision needs: Yes Physical Exam Vital Signs: Last Vital Signs Temp 97.9 F 03/09/24 11:21 Pulse 78 03/09/24 11:21 BP 104/64 03/09/24 11:21 Pulse Ox 100 03/09/24 11:21 Oxygen Delivery Method Room Air 03/09/24 11:21 BMI result Body Mass Index 21.9 Results AMB Rapid Strep AMB Rapid Strep Negative Last Edit by Beth Booker CMA on 03/09/24 11:39 Results Reviewed Results Reviewed: Laboratory Last Values Strep Scn Rapid Clinic Negative 03/09/24 11:33 Assessment & Plan Assessment & Plan (1) Strep pharyngitis: Code(s): J02.0 - Streptococcal pharyngitis Plan: . (2) Tobacco dependence: Code(s): F17.200 - Nicotine dependence, unspecified, uncomplicated Plan: Smoking Cessation How to Quit There are a lot of ways to quit smoking and many resources to help you. Family members, friends, and co-workers may be supportive or encouraging, but to be successful the desire and commitment to quit must be your own. Most people who have been able to successfully quit smoking made at least one unsuccessful attempt in the past. Try not to view past attempts to quit as failures, but rather as learning experiences. Stopping smoking or using smokeless tobacco is difficult, but anyone can do it. Know the symptoms to expect when you stop. Common symptoms include: ? An intense craving for nicotine ? Anxiety, tension, restlessness, frustration, or impatience ? Difficulty concentrating ? Drowsiness or trouble sleeping, as well as bad dreams and nightmares ? Drowsiness and trouble sleeping ? Headaches ? Increased appetite and weight gain ? Irritability or depression How severe your symptoms are depends on how long you smoked and how many cigarettes you smoked each day. Feel ready to quit? ? First and foremost, set a quit date and quit completely on that day. Before your quit date, you may begin reducing your cigarette use. But remember, there is no safe level of cigarette smoking. ? List the reasons why you want to quit. Include both short- and long-term benefits. ? Identify the times you are most likely to smoke. For example, do you tend to smoke when feeling stressed or down? When out at night with friends? While drinking coffee or alcohol? When bored? While driving? Right after a meal or sex? During a work break? While watching TV or playing cards? When you are with other smokers? ? Let all of your friends, family, and co-workers know of your plan to stop smoking and your quit date. Just being aware that they know what you're going through can be helpful, especially when you are grumpy. ? Get rid of all your cigarettes just before the quit date, and clean out anything that smells like smoke, such as clothes and furniture. Make a plan about what you will do instead of smoking at those times when you are most likely to smoke. ? Be as specific as possible. For example, drink tea instead of coffee -- tea may not trigger the desire for a cigarette. Or, take a walk when you feel stressed. ? Remove ashtrays and cigarettes from the car. Place pretzels or hard candies there instead. Pretend-smoke with a straw. ? Find activities that focus your hands and mind but are not taxing or fattening. Computer games, solitaire, knitting, sewing, and crossword puzzles may help. ? If you normally smoke after eating, find other ways to end a meal. Play a tape or CD, eat a piece of fruit, get up and make a phone call, or take a walk (a good distraction that also brunson calories). Make other changes in your lifestyle. ? Change your daily schedule and habits. Eat at different times or eat several small meals instead of three large ones. Sit in a different chair or even a different room. ? Satisfy your oral habits by eating celery or other low-calorie snack, chewing sugarless gum, or sucking on a cinnamon stick. ? Go to public places and restaurants where smoking is prohibited or restricted. ? Eat regular meals and don't eat too much candy or sweet things. ? Get more exercise. Take walks or ride a bike. Exercise helps relieve the urge to smoke. Set short-term quitting goals and reward yourself when you meet them. ? Every day, put the money you normally spend on cigarettes in a jar. Then buy something pleasurable after a period of time. ? Try not to think about all the days ahead you will need to avoid smoking. Take it one day at a time. ? Even one puff or one cigarette will make your desire for more cigarettes even stronger. However, it is normal to make mistakes. So even if you have one cigarette, you don't need to take the next one. Other tips to help you quit smoking and stick to it: ? Enroll in a smoking cessation program (hospitals, health departments, community centers, and work sites often offer programs). Learn about self-hypnosis or other techniques. ? Ask your health care provider about prescription medications that are safe and appropriate for you. ? Find out about nicotine patches, gum, and sprays. The [place] [employer]'s web site -- www.cancer.org -- is an excellent r esource for smokers who are trying to quit, and the [employer] [place] [employer] can help some smokers kick the habit. Above all, don't get discouraged if you aren't able to quit smoking the first time. Nicotine addiction is a hard habit to break. Try something different next time. Develop new strategies, and try again. Many people take several attempts to finally kick the habit. Plan . Orders: Orders AMB Rapid Strep Screen Today Z13.9 - Encounter for screening, unspecified Medications: New amoxicillin-pot clavulanate 875-125 mg 1 tab PO BID 7 days 14 tabs 0RF Patient Instructions: Good hand hygiene and respiratory etiquette can reduce the spread of all types of group A strep infection. Hand hygiene is especially important after coughing and sneezing and before preparing foods or eating. Good respiratory etiquette involves covering your cough or sneeze. Do not share food or drinks. Treating an infected person with an antibiotic for 12 hours or longer limits their ability to transmit the bacteria. Thus, people with group A strep pharyngitis should stay home from work, school, or daycare until: They are afebrile AND At least 12?24 hours after starting appropriate antibiotic therapy I also recommend changing toothbrush and washing bed linen in hot water 24 hours after starting antibiotics Coding Level of Care Code Est Pt Level 4 (13672) Diagnoses Strep pharyngitis J02.0 Tobacco dependence F17.200
== END 2024-03-09 12:10 | disposition home or self-care (01) ==
PROVIDERS: PCP Internal Medicine; Visit Provider Nurse Practitioner Family
DX: J02.0 Streptococcal pharyngitis (principal); F17.200 Nicotine dependence, unspecified, uncomplicated; Z13.9 Encounter for screening, unspecified

== ENCOUNTER → 2024-03-09 10:57 | Outpatient (BNVA) | payer BC, SELFPAY | PROVIDERS: PCP Internal Medicine | DX: J02.0 Streptococcal pharyngitis (principal); F17.210 Nicotine dependence, cigarettes, uncomplicated | CPT/HCPCS: 87880 ==

== ENCOUNTER 2024-04-16 10:53 | Outpatient (AMB) | payer BC, SELFPAY ==
[2024-04-16 10:55] VITALS: BP 148/76; PULSE 90; BMI 21.3
--- NOTE | 2024-04-16 10:55 | MHC.OFFVIS ---
Vital Signs 04/16/24 10:55 Height 5 ft 8 in Weight 140 lb 3.424 oz BMI 21.3 BP 148/76 H Blood Pressure Location Rt brachial Position Sitting Pulse 90 Intake Visit Reasons: 6 month follow up Abdominal bloating Intake Note: Valerie presents in 6 months follow up of abdominal bloating. CC: Patient c/o major issues with hemorrhoids, that area doesn't feel well . Patient reports bleeding and stools that ranging from loose stools to hard stools. Per patient she is a little bit more gassy. Solution Lead Required: No Accompanied by: Self / Same As Patient Allergies No Known Allergies [No Known Allergies*] Allergy (Verified 07/31/24 12:24) HPI HPI 6 month follow up Abdominal bloating: Details: Assessment & Plan (1) GERD (gastroesophageal reflux disease): Code(s): K21.9 - Gastro-esophageal reflux disease without esophagitis Category: Medical Qualifiers: Esophagitis presence: without esophagitis Qualified Code(s): K21.9 - Gastro-esophageal reflux disease without esophagitis (2) Diverticulitis: Code(s): K57.92 - Diverticulitis of intestine, part unspecified, without perforation or abscess without bleeding Category: Medical (3) Candidiasis of mouth and esophagus: Code(s): B37.81 - Candidal esophagitis; B37.0 - Candidal stomatitis Category: Medical Plan She had to use her amox because she had a TICS attack, she thinks this was triggered by eating cashews ( I love my nuts! ). She had an episode of severe CP after treatment and she had some relief with Pepto, she called us and I prescribed diflucan as this had been a problem in the past. She had partial resolution, so we will retreat with at 14 days course. Oddly, she asks if the CP could be my HH? But review of past studies shows no HH including past EGD and barium swallow. ROV 6 mos. She asks about hemorrhoid ablation therapy. Medications: New amoxicillin-pot clavulanate 875-125 mg 1 tab PO BID 20 tabs 0RF 10 days K57.92 - Diverticulitis of intestine, part unspecified, without perforation or abscess without bleeding fluconazole (Diflucan) 200 mg PO DAILY 14 tabs 0RF 14 days B37.81 - Candidal esophagitis, B37.0 - Candidal stomatitis TODAY'S VISIT Her has a new problem of melanoma oh his head and he is undergoing tx for this as there are swollen lymph nodes involved. She has been quite stressed with this. She is having a lot of pain from internal and ext roids, not responding to conservative tx. She wanted to see a vascular surgeon but they were not in her network ([facility]). Did not hit it off with Dr. Bernard. I will research this. She has multiple daily BM's mostly in the am up to 4 times, the stool are soft to more formed but not watery. She is skipping breakfast r/t this. Trial of bentyl ROV 6 weeks. [facility] Medical History Osteopenia of multiple sites History of diverticulitis External hemorrhoid, bleeding History of adenomatous polyp of colon Palmar nodule Mixed dyslipidemia Decreased pedal pulses Numbness and tingling of foot Fracture of metacarpal bone of left hand COVID-19 vaccine series completed Fracture of fifth metacarpal bone of left hand Osteopenia of right hip Impaired fasting glucose Dyslipidemia Rash of face Loose stools Cervical paraspinal muscle spasm Osteopenia of left hip Smoker unmotivated to quit Surgical menopause Eczema of both hands History of chickenpox History of anxiety disorder GERD (gastroesophageal reflux disease) Surgical History History of esophagogastroduodenoscopy (EGD) Hx of colonoscopy History of appendectomy History of hysterectomy, supracervical abdominal (subtotal) Family History Father Hypertension Mother Diabetes Stroke Brother Hypercholesteremia Brother Hypertension Social History Housing: House Alcohol intake: current Alcohol intake frequency: 0-2 drinks per day Alcohol type: beer and wine Patient Tobacco Use Status: Current everyday Tobacco user Tobacco use type: Cigarette Cigarettes Per Day: 10 Years Smoked: 40 e-Cigarette/Vaping Use: Never Used Second Hand Smoke Exposure: Yes service: No Current occupational status: employed Cognitive needs: No Hearing needs: No Vision needs: Yes Review of Systems Const Denies fatigue, Denies fever(s), Denies night sweats, Denies poor appetite and Denies weight loss Eyes Details: glasses Reports requires corrective lenses ENT Reports Normal hearing present, Denies dental pain, Denies dysphagia, Denies hearing loss, Denies mouth pain, Denies odynophagia, Denies throat swelling, Denies tongue swelling and Reports other (Dentition adequate) Card Reports no additional complaints Resp Reports no additional complaints GI Details: Rectal pain from hemorrhoids Denies abdominal pain, Denies melena, Denies bloating, Reports hematochezia, Reports constipation, Denies GI cramping, Denies dysphagia, Denies excessive flatus, Denies early satiety, Denies heartburn, Denies diarrhea, Reports loose stools, Denies nausea, Denies odynophagia, Denies vomiting and Denies hematemesis Skin/Breast Details: breakouts on skin. Denies pruritus, Denies lesions, Denies rash and Denies jaundice Neuro Reports Normal hearing present and Denies Abnormal speech present Psych Reports anxiety Endo Denies fatigue Aller/Immun Denies throat swelling and Denies tongue swelling Physical Exam Vital Signs: Last Vital Signs Pulse 90 04/16/24 10:55 BP 148/76 H 04/16/24 10:55 BMI result Body Mass Index 21.3 Const General: cooperative, no acute distress, well developed and well groomed Nutritional Appearance: average body habitus and well nourished Orientation/consciousness: oriented to person, oriented to place and oriented to time Limitations: No language barrier HEENT Head: Yes normocephalic and Yes atraumatic Eyes General: appearance normal, both eyes and all related structures Pupils: Equal, round and reactive pupils present Neck Neck: Yes normal visual inspection and Yes no lymphadenopathy Thyroid: Thyroid normal Resp Effort & Inspection: normal respiratory effort and able to speak in complete sentences Auscultation: clear to auscultation bilaterally Cardio Rate: regular rate Rhythm: regular rhythm Heart sounds: Normal, physiologic split S2 sound present Peripheral pulses: radial pulses present and posterior tibial pulses present GI Inspection: No distended and No Abdominal panniculus present Palpation (GI): Soft to palpation, nontender, no guarding, not rigid and No hepatosplenomegaly present Percussion: Yes normal to percussion Auscultation: normal bowel sounds Rectal Exam - Female: deferred Skin General skin exam: no rashes or lesions noted, turgor normal, skin not dry, no jaundice, No spider nevi and no striae Rashes: no rashes Nails: normal Neuro General: oriented to person, oriented to place and oriented to time Cranial nerves: Yes Equal, round and reactive pupils present and Yes Normal hearing present Speech: No Abnormal speech present Extrem General: Yes normal to inspection, No clubbing, No cyanosis and No edema Psych Appearance: grossly normal and well kempt Mental Status: mental status grossly normal Speech and movement: Normal speech and movement present Affect: normal affect Attitude: cooperative Thought process: Normal thought process present and not confabulating Thought content: Normal thought content present Insight: Good insight present (Psych) Judgement: Good judgement present (Psych) Assessment & Plan Assessment & Plan (1) GERD (gastroesophageal reflux disease): Code(s): K21.9 - Gastro-esophageal reflux disease without esophagitis Category: Medical Qualifiers: Esophagitis presence: without esophagitis Qualified Code(s): K21.9 - Gastro-esophageal reflux disease without esophagitis (2) Irritable bowel syndrome with both constipation and diarrhea: Code(s): K58.2 - Mixed irritable bowel syndrome Category: Medical Plan Her has a new problem of melanoma oh his head and he is undergoing tx for this as there are swollen lymph nodes involved. She has been quite stressed with this. She is having a lot of pain from internal and ext roids, not responding to conservative tx. She wanted to see a vascular surgeon but they were not in her network ([facility]). Did not hit it off with Dr. Bernard. I will research this. She has multiple daily BM's mostly in the am up to 4 times, the stool are soft to more formed but not watery. She is skipping breakfast r/t this. Trial of bentyl ROV 6 weeks. Medications: New dicyclomine 20 mg PO BID 60 tabs 3RF 30 days K58.2 - Mixed irritable bowel syndrome Coding Level of Care Code Est Pt Level 3 (29358) Diagnoses Gastroesophageal reflux disease without esophagitis K21.9 Esophagitis presence: without esophagitis Irritable bowel syndrome with both constipation and diarrhea K58.2
== END 2024-04-16 15:48 | disposition home or self-care (01) ==
PROVIDERS: PCP Internal Medicine; Visit Provider Nurse Practitioner
DX: K21.9 Gastro-esophageal reflux disease without esophagitis (principal); K58.2 Mixed irritable bowel syndrome
CPT/HCPCS: 99499

== ENCOUNTER 2024-05-08 13:33 | Outpatient (REF) | payer BC, SELFPAY ==
[2024-05-08 13:52] LABS: MANUAL DIFF FLAG NO
[2024-05-08 14:29] LABS: Basophils Absolute Auto 0.1 X10*3/uL (0.0-0.2); Basophils Percent Auto 1.1 % (0-2); Eosinophils Absolute Auto 0.1 X10*3/uL (0.0-0.4); Eosinophils Percent Auto 1.8 % (0-4); Hematocrit 38.9 % (37.0-47.0); Hemoglobin 13.7 g/dl (12.0-16.0); Imm Gran Abs Auto 0.02 X10*3/uL (0.00-0.03); Imm Gran Pct Auto 0.3 % (0.0-0.4); Lymphocytes Absolute Auto 2.8 X10*3/uL (1.2-4.9); Lymphocytes Percent Auto 45.7 % (20-40); Mean Corpuscular HGB Conc 35.2 g/dl (31.0-35.0); Mean Corpuscular Hemoglobin 33.1 pg (27.0-33.0); Monocytes Absolute Auto 0.4 X10*3/uL (0.1-1.2); Monocytes Percent Auto 6.6 % (2-11); Neutrophils Absolute Auto 2.8 x10*3/uL (2.0-8.3); Neutrophils Percent Auto 44.5 % (45-73); Platelet Count 213 X10*3/uL (160-400); Red Blood Count 4.14 X10*6/uL (4.20-5.50); Red Cell Distribution Width 11.8 % (11.0-16.0); White Blood Count 6.2 X10*3/uL (4.8-10.8)
[2024-05-08 15:00] LABS: Alanine Aminotransferase 29 U/L (0-31); Albumin Level 4.3 g/dL (3.5-5.0); Alkaline Phosphatase 69 U/L (39-117); Anion Gap 15 (12-20); Aspartate Amino Transferase 28 U/L (5-31); Bilirubin Total 0.3 mg/dL (0.0-1.0); Blood Urea Nitrogen 16 mg/dL (9-16); Calcium 9.5 mg/dL (8.4-10.2); Carbon Dioxide 26 mmol/L (22-29); Chloride 104 mmol/L (96-108); Estimated Glomerular Filt Rate > 60; Glucose Random 104 mg/dL (60-115); Potassium 3.9 mmol/L (3.3-5.1); Sodium 141 mmol/L (135-145); Total Protein 7.2 g/dL (6.5-8.0)
== END 2024-05-08 13:34 | disposition home or self-care (01) ==
LOC: HO.LAB 13:33
PROVIDERS: PCP Internal Medicine; Visit Provider Nurse Practitioner
DX: K58.2 Mixed irritable bowel syndrome (principal); R10.9 Unspecified abdominal pain
CPT/HCPCS: 36415; 80053; 85025

== ENCOUNTER 2024-05-13 | Outpatient (REF) | payer BC, SELFPAY | END 2024-05-13 00:01 | disposition home or self-care (01) | LOC: HO.LNP | PROVIDERS: Visit Provider Nurse Practitioner | DX: K58.2 Mixed irritable bowel syndrome (principal); R10.9 Unspecified abdominal pain | CPT/HCPCS: 82656; 83993 ==

== ENCOUNTER 2024-05-15 08:13 | Outpatient (REF) | payer BC, SELFPAY ==
--- NOTE | ~2024-05-15 | US_ITS ---
EXAMINATION: US ABDOMEN HISTORY: K58.2 - Mixed irritable bowel syndrome TECHNIQUE: Real-time grayscale ultrasound imaging of the abdomen was performed and images were reviewed. COMPARISON: Correlation is made with a CT of the abdomen dated 09/19/2022. FINDINGS: Liver: The liver is normal in size and demonstrates homogeneous echotexture. There is a 1.3 cm cyst in the right lobe. No intrahepatic biliary ductal dilatation is identified. There is normal hepatopedal flow in the portal vein. Gallbladder and biliary tree: There are shadowing calculi in the gallbladder. There is no wall thickening or pericholecystic fluid. There is no sonographic Iglesias sign. The common bile duct is normal in caliber measuring 4 mm. Kidneys: The right kidney measures 10.1 cm in length. The left kidney measures 11.2 cm in length. There are two 4 mm nonobstructing calculi at the lower pole of the right kidney. The left kidney demonstrates a 5 mm nonobstructing calculus at the upper pole and a 2 mm nonobstructing calculus at the lower pole. There is a 10 mm cyst in the interpolar region of the left kidney. There is no hydronephrosis or solid mass. Pancreas: The pancreatic head, neck, and body are unremarkable. The pancreatic tail is obscured by bowel gas. Spleen: The spleen is normal in size and contour, measuring 7.8 cm in length. Abdominal aorta and inferior vena cava: The visualized portions of the abdominal aorta and inferior vena cava are normal in caliber. There is no free fluid in the abdomen. US/US abdomen complete IMPRESSION: 1. Cholelithiasis without evidence of acute cholecystitis. 2. Bilateral nephrolithiasis as described, without evidence of ureteral obstruction. Electronically signed by: Shiv Rocha MD 05/15/2024 01:16 PM [facility]
== END 2024-05-15 08:14 | disposition home or self-care (01) ==
LOC: HO.HMGCX 08:13
PROVIDERS: PCP Internal Medicine; Visit Provider Nurse Practitioner
DX: K58.2 Mixed irritable bowel syndrome (principal); R10.9 Unspecified abdominal pain
CPT/HCPCS: 76700

== ENCOUNTER → 2024-05-15 08:16 | Outpatient (BNV) | payer BC, SELFPAY | PROVIDERS: PCP Internal Medicine; Visit Provider Radiology Diagnostic Radiology | DX: K80.20 Calculus of gallbladder without cholecystitis without obstruction (principal); N20.0 Calculus of kidney | CPT/HCPCS: 76700 ==

== ENCOUNTER 2024-07-31 12:20 | Outpatient (AMB) | payer BC, SELFPAY ==
--- NOTE | 2024-07-31 12:24 | MHC.OFFVIS ---
Vital Signs 07/31/24 12:26 Height 5 ft 8 in Weight 138 lb BMI 21.0 BP 145/74 H Blood Pressure Location Lt brachial Position Sitting Pulse 85 Pulse Oximetry (%) 98 Oxygen Delivery Method Room Air Intake Visit Reasons: 6 week follow up r/s from 05/29 Intake Note: Patient 4 month follow up for GERD. Patient cc: rectal bleeding due hemorrhoids. Denies any other GI issues. 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 She hw quite stressed with this. SHe is having a lot of pain from internal and ext roids, not responding to conservative tx. She wanted to see a vascualr surgeon but they were not in her network ([facility]). Did not hit it off with Dr. Bernard. I will research this. She has multiple daily BM's mostly in the am up to 4 times, the stool are soft to more formed but not watery. She is skipping breakfast r/t this. Trial of bentyl ROV 6 weeks. Assessment & Plan (1) GERD (gastroesophageal reflux disease): Code(s): K21.9 - Gastro-esophageal reflux disease without esophagitis Category: Medical Qualifiers: Esophagitis presence: without esophagitis Qualified Code(s): K21.9 - Gastro-esophageal reflux disease without esophagitis (2) Irritable bowel syndrome with both constipation and diarrhea: Code(s): K58.2 - Mixed irritable bowel syndrome Category: Medical Medications: New dicyclomine 20 mg PO BID 60 tabs 3RF 30 days K58.2 - Mixed irritable bowel syndrome CORRESPONDENCE On 05/15/24 @ 12:32 ENZO SALCIDO (Regarding Self / Same As Patient) Wrote To KongJuly Hi July, just wanted to let you know that I stopped taking the Dicyclomine for right now, because I think (?) I may be starting to have some symptoms of Diverticulitis again(?) so I started taking the Amoxicillin you had prescribed back in August just in case. I didn't think I should be taking both at the same time. I do not think that the Diverticulitis is the cause of my issues, since they began well before I started to feel any symptoms of Diverticulitis. I am on my second dose of the Amoxicillin , so hopefully will help. Did have my ultrasound this morning and I am scheduled to see you on the . I do know that something needs to be done, I am usually on a daily bases of being uncomfortable (down there) so resort to Ibuprofen, Prep H, etc.. Just wanted you to be aware of what I am doing. Thank You On 05/02/24 @ 18:03 ENZO SALCIDO (Regarding Self / Same As Patient) Wrote To Jyotsna Triana Hi July, I looked up the medication for the new drug and it said was used for depression and bed wetting ?? Not sure how this will help me? Any more info on this medication would be helpful. Also can I go to the Lab on [facility] to get bloodwork done and cups for stool samples & can i drop off there?? Let me know if you can and when I can go? Thank You! On 05/02/24 @ 15:13 Jyotsna Triana Wrote To Enzo Salcido Hi, I am going to try a different drug called imipramine that you take at bedtime and I will also order some basic lab work and some stool studies. You can come to the lab any time the labs and not have to be fasting and of course she will need to sampler pickup the cups for the stool samples and take them home and find out how quickly you have to bring them back. . On 05/01/24 @ 09:59 ENZO SALCIDO (Regarding Self / Same As Patient) Wrote To Jyotsna Triana Hi July, sorry to send this to u on , but I am not getting any positive results from the medication u prescribed.. Dicyclomine , I am wondering if it is more internal.. Pancreas, Liver, Colon?? Do not know if I need blood work or another colonoscopy?/ Something is not right. I know I have the hemorrhoidal issues, but is the internal issue causing the humeroradial issue?? I just know something is not right, with unfortunately the & hate to say the pooping issue. I am so embarrassed about this issue But I do think something has to be done, I am scheduled to see you on the 29 of May. Let me know id I need to done something before that appt? Again so sorry to type this on May.01! Happy New Year! TODAY'S VISIT Her had a very bad reaction to immuotherapy to tx his skin cancer. 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 She forgot to try the bentyl and is unsure if she has the imipramine. Her IBS continues and she bleeds almost every day. Did not hit it off with Dr. Bernard, would consider surgery but would like a female provider. ROV next avail. [facility] Medical History Osteopenia of multiple sites History of diverticulitis External hemorrhoid, bleeding History of adenomatous polyp of colon Palmar nodule Mixed dyslipidemia Decreased pedal pulses Numbness and tingling of foot Fracture of metacarpal bone of left hand COVID-19 vaccine series completed Fracture of fifth metacarpal bone of left hand Osteopenia of right hip Impaired fasting glucose Dyslipidemia Rash of face Loose stools Cervical paraspinal muscle spasm Osteopenia of left hip Smoker unmotivated to quit Surgical menopause Eczema of both hands History of chickenpox History of anxiety disorder GERD (gastroesophageal reflux disease) Surgical History History of esophagogastroduodenoscopy (EGD) Hx of colonoscopy History of appendectomy History of hysterectomy, supracervical abdominal (subtotal) Family History Father Hypertension Mother Diabetes Stroke Brother Hypercholesteremia Brother Hypertension Social History Housing: House Alcohol intake: current Alcohol intake frequency: 0-2 drinks per day Alcohol type: beer and wine Patient Tobacco Use Status: Current everyday Tobacco user Tobacco use type: Cigarette Cigarettes Per Day: 10 Years Smoked: 40 e-Cigarette/Vaping Use: Never Used Second Hand Smoke Exposure: Yes service: No Current occupational status: employed Cognitive needs: No Hearing needs: No Vision needs: Yes Review of Systems Const Denies fatigue, Denies fever(s), Denies night sweats, Denies poor appetite and Denies weight loss Eyes Details: glasses Reports requires corrective lenses ENT Reports Normal hearing present, Denies dental pain, Denies dysphagia, Denies hearing loss, Denies mouth pain, Denies odynophagia, Denies throat swelling, Denies tongue swelling and Reports other (Dentition adequate) Card Reports no additional complaints Resp Reports no additional complaints GI Details: Denies abdominal pain, Denies melena, Denies bloating, Denies hematochezia, Denies constipation, Reports GI cramping, Denies dysphagia, Denies excessive flatus, Denies early satiety, Denies heartburn, Reports diarrhea, Denies nausea, Denies odynophagia, Denies vomiting and Denies hematemesis Skin/Breast Denies pruritus, Denies lesions, Denies rash and Denies jaundice Neuro Reports Normal hearing present and Denies Abnormal speech present Psych Reports abnormal sleep pattern Endo Denies fatigue Aller/Immun Denies throat swelling and Denies tongue swelling Physical Exam Vital Signs: Last Vital Signs Pulse 85 07/31/24 12:26 BP 145/74 H 07/31/24 12:26 Pulse Ox 98 07/31/24 12:26 Oxygen Delivery Method Room Air 07/31/24 12:26 BMI result Body Mass Index 21.0 Const General: cooperative, no acute distress, well developed, tired appearing and well groomed Nutritional Appearance: average body habitus and well nourished Orientation/consciousness: oriented to person, oriented to place and oriented to time Limitations: No language barrier HEENT Head: Yes normocephalic and Yes atraumatic Eyes General: appearance normal, both eyes and all related structures Pupils: Equal, round and reactive pupils present Neck Neck: Yes normal visual inspection and Yes no lymphadenopathy Thyroid: Thyroid normal Resp Effort & Inspection: normal respiratory effort and able to speak in complete sentences Auscultation: clear to auscultation bilaterally Cardio Rate: regular rate Rhythm: regular rhythm Heart sounds: Normal, physiologic split S2 sound present Peripheral pulses: radial pulses present and posterior tibial pulses present GI Inspection: No distended and No Abdominal panniculus present Palpation (GI): Soft to palpation, nontender, no guarding, not rigid and No hepatosplenomegaly present Percussion: Yes normal to percussion Auscultation: normal bowel sounds Rectal Exam - Female: deferred Skin General skin exam: no rashes or lesions noted, turgor normal, skin not dry, no jaundice, No spider nevi and no striae Rashes: no rashes Nails: normal Neuro General: oriented to person, oriented to place and oriented to time Cranial nerves: Yes Equal, round and reactive pupils present and Yes Normal hearing present Speech: No Abnormal speech present Extrem General: Yes normal to inspection, No clubbing, No cyanosis and No edema Psych Appearance: grossly normal and well kempt Mental Status: mental status grossly normal Speech and movement: Normal speech and movement present Affect: Labile affect present and Sad affect present Attitude: cooperative Thought process: Normal thought process present and not confabulating Thought content: Normal thought content present Insight: Good insight present (Psych) Judgement: Good judgement present (Psych) Assessment & Plan Assessment & Plan (1) Irritable bowel syndrome with both constipation and diarrhea: Code(s): K58.2 - Mixed irritable bowel syndrome Category: Medical (2) GERD (gastroesophageal reflux disease): Code(s): K21.9 - Gastro-esophageal reflux disease without esophagitis Category: Medical Qualifiers: Esophagitis presence: without esophagitis Qualified Code(s): K21.9 - Gastro-esophageal reflux disease without esophagitis Plan Her had a very bad reaction to immuotherapy to tx his skin cancer. 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 She forgot to try the bentyl and is unsure if she has the imipramine. Her IBS continues and she bleeds almost every day. Did not hit it off with Dr. Bernard, would consider surgery but would like a female provider. ROV next avail. Medications: New amoxicillin-pot clavulanate 875-125 mg 1 tab PO BID 20 tabs 0RF 10 days Refilled pantoprazole 40 mg PO DAILY 90 tabs 3RF Coding Level of Care Code Est Pt Level 3 (00749) Diagnoses Irritable bowel syndrome with both constipation and diarrhea K58.2 Gastroesophageal reflux disease without esophagitis K21.9 Esophagitis presence: without esophagitis
[2024-07-31 12:26] VITALS: BP 145/74; PULSE 85; O2SAT 98; BMI 21.0
== END 2024-07-31 13:17 | disposition home or self-care (01) ==
LOC: HO.HGI 12:21
PROVIDERS: PCP Internal Medicine; Visit Provider Nurse Practitioner
DX: K58.2 Mixed irritable bowel syndrome (principal); K21.9 Gastro-esophageal reflux disease without esophagitis
CPT/HCPCS: 99213

== ENCOUNTER → 2024-07-31 12:20 | Outpatient (BNVA) | payer BC, SELFPAY | PROVIDERS: PCP Internal Medicine; Visit Provider Nurse Practitioner ==

== ENCOUNTER 2024-10-02 16:07 | Outpatient (AMB) | payer BC, SELFPAY ==
--- NOTE | 2024-10-02 16:08 | MHC.OFFVIS ---
Vital Signs 10/02/24 16:19 Height 5 ft 8 in Weight 135 lb BMI 20.5 BP 102/66 Blood Pressure Location Rt brachial Position Sitting Pulse 112 H Pulse Source Pulse Oximeter Pulse Oximetry (%) 94 Oxygen Delivery Method Room Air Intake Visit Reasons: 2 mos FUV, scheduling error Intake Note: Established patient for mgmt of IBS + hemorrhoid hx. CC; C.O. chronic sx persistence. Pt states that hemorrhoids are still a concern and that she has stopped her dicyclomine as she did not see any response to the therapy. IBS still causing frequent episodes. Pt also reports her just two months ago and she has been under a lot of stress as a result. 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 Accompanied by: Self / Same As Patient Allergies No Known Allergies [No Known Allergies*] Allergy (Verified 10/02/24 16:14) HPI HPI 2 mos FUV, scheduling error: Details: Assessment & Plan (1) Irritable bowel syndrome with both constipation and diarrhea: Code(s): K58.2 - Mixed irritable bowel syndrome Category: Medical (2) GERD (gastroesophageal reflux disease): Code(s): K21.9 - Gastro-esophageal reflux disease without esophagitis Category: Medical Qualifiers: Esophagitis presence: without esophagitis Qualified Code(s): K21.9 - Gastro-esophageal reflux disease without esophagitis Plan Her had a very bad reaction to immuotherapy to tx his skin cancer. 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 She forgot to try the bentyl and is unsure if she has the imipramine. Her IBS continues and she bleeds almost every day. Did not hit it off with Dr. Bernard, would consider surgery but would like a female provider. ROV next avail. Medications: New amoxicillin-pot clavulanate 875-125 mg 1 tab PO BID 20 tabs 0RF 10 days Refilled pantoprazole 40 mg PO DAILY 90 tabs 3RF CORRESPONDENCE On 05/15/24 @ 12:32 ENZO SALCIDO (Regarding Self / Same As Patient) Wrote To KongJuly Hi July, just wanted to let you know that I stopped taking the Dicyclomine for right now, because I think (?) I may be starting to have some symptoms of Diverticulitis again(?) so I started taking the Amoxicillin you had prescribed back in August just in case. I didn't think I should be taking both at the same time. I do not think that the Diverticulitis is the cause of my issues, since they began well before I started to feel any symptoms of Diverticulitis. I am on my second dose of the Amoxicillin , so hopefully will help. Did have my ultrasound this morning and I am scheduled to see you on the . I do know that something needs to be done, I am usually on a daily bases of being uncomfortable (down there) so resort to Ibuprofen, Prep H, etc.. Just wanted you to be aware of what I am doing. Thank You On 05/02/24 @ 18:03 ENZO SALCIDO (Regarding Self / Same As Patient) Wrote To Jyotsna Triana Hi July, I looked up the medication for the new drug and it said was used for depression and bed wetting ?? Not sure how this will help me? Any more info on this medication would be helpful. Also can I go to the Lab on [facility] to get bloodwork done and cups for stool samples & can i drop off there?? Let me know if you can and when I can go? Thank You! On 05/02/24 @ 15:13 Jyotsna Triana Wrote To Enzo Salcido Hi, I am going to try a different drug called imipramine that you take at bedtime and I will also order some basic lab work and some stool studies. 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 . On 05/01/24 @ 09:59 ENZO SALCIDO (Regarding Self / Same As Patient) Wrote To Jyotsna Triana Hi July, sorry to send this to on , but I am not getting any positive results from the medication u prescribed.. Dicyclomine , I am wondering if it is more internal.. Pancreas, Liver, Colon?? Do not know if I need blood work or another colonoscopy?/ Something is not right. I know I have the hemorrhoidal issues, but is the internal issue causing the humeroradial issue?? I just know something is not right, with unfortunately the & hate to say the pooping issue. I am so embarrassed about this issue But I do think something has to be done, I am scheduled to see you on the 29 of May. Let me know id I need to done something before that appt? Again so sorry to type this on May.01! Happy New Year! TODAY'S VISIT Her 's, unfortunately, from his illness. She is having quite a lot of gas in the morning, and she will have multiple bowel movements usually mostly in the morning, of varying consistencies. This makes it very difficult for her to plan her day and it is really aggravating her hemorrhoids. Because of her hemorrhoid she will have occasional bleeding but so far nothing copious. In the past we have done workup that have been negative including fecal calprotectin, pancreatic elastase, and a relatively unremarkable colonoscopy except for polyps in 2022. Obviously irritable bowels very individual journey and she has multiple possible contributing factors at this time. She is under quite a lot of stress, also she has not been eating as well or as regularly as she would in the past. However she is doing some things of benefit including utilizing a 5 her weight we for and she has utilize probiotic supplements in the past. We did have her on imipramine at that time she can not really remember how much it may have been helping her but we were at the lowest dose and did not get a chance to titrated up. She did not feel like the dicyclomine really did much for her. We did discuss intervention such as Creon which I think we will make available to her and some sjjc-zzi-iekxzzg things like IBgard or encapsulated peppermint. I think will also trial restarting her imipramine and if she tolerates it at the lower dose but it is not effective we will slowly titrate that up to affect or adverse effect. She is a little bit gunshot of taking a lot of pills given what happened with her and that is understandable. She still would like a referral for female surgeon for hemorrhoids. I refer her to Dr. Spring Palma at [facility] at [address] She is quite worried given her experience with her that she may have cancer somewhere, I feel quite confident that she likely does not but I completely understand her concern. ROV 6 weeks. [facility] Medical History Osteopenia of multiple sites History of diverticulitis External hemorrhoid, bleeding History of adenomatous polyp of colon Palmar nodule Mixed dyslipidemia Decreased pedal pulses Numbness and tingling of foot Fracture of metacarpal bone of left hand COVID-19 vaccine series completed Fracture of fifth metacarpal bone of left hand Osteopenia of right hip Impaired fasting glucose Dyslipidemia Rash of face Loose stools Cervical paraspinal muscle spasm Osteopenia of left hip Smoker unmotivated to quit Surgical menopause Eczema of both hands History of chickenpox History of anxiety disorder GERD (gastroesophageal reflux disease) Surgical History History of esophagogastroduodenoscopy (EGD) Hx of colonoscopy History of appendectomy History of hysterectomy, supracervical abdominal (subtotal) Family History Father Hypertension Mother Diabetes Stroke Brother Hypercholesteremia Brother Hypertension Social History Housing: House Alcohol intake: current Alcohol intake frequency: 0-2 drinks per day Alcohol type: beer and wine Patient Tobacco Use Status: Current everyday Tobacco user Tobacco use type: Cigarette Cigarettes Per Day: 10 Years Smoked: 40 e-Cigarette/Vaping Use: Never Used Second Hand Smoke Exposure: Yes service: No Current occupational status: employed Cognitive needs: No Hearing needs: No Vision needs: Yes Review of Systems Const Denies fatigue, Denies fever(s), Denies night sweats, Denies poor appetite and Denies weight loss Eyes Details: glasses Reports requires corrective lenses ENT Reports Normal hearing present, Denies dental pain, Denies dysphagia, Denies hearing loss, Denies mouth pain, Denies odynophagia, Denies throat swelling, Denies tongue swelling and Reports other (Dentition adequate) Card Reports no additional complaints Resp Reports no additional complaints GI Details: Denies abdominal pain, Denies melena, Denies bloating, Denies hematochezia, Reports constipation, Denies GI cramping, Denies dysphagia, Reports excessive flatus, Denies early satiety, Reports dyspepsia, Reports heartburn, Reports diarrhea, Denies nausea, Denies odynophagia, Denies vomiting and Denies hematemesis Skin/Breast Denies pruritus, Denies lesions, Denies rash and Denies jaundice Neuro Reports Normal hearing present and Denies Abnormal speech present Psych Reports anxiety Endo Denies fatigue Aller/Immun Denies throat swelling and Denies tongue swelling Physical Exam Const General: cooperative, no acute distress, well developed and well groomed Nutritional Appearance: average body habitus and well nourished Orientation/consciousness: oriented to person, oriented to place and oriented to time Limitations: No language barrier HEENT Head: Yes normocephalic and Yes atraumatic Eyes General: appearance normal, both eyes and all related structures Pupils: Equal, round and reactive pupils present Neck Neck: Yes normal visual inspection and Yes no lymphadenopathy Thyroid: Thyroid normal Resp Effort & Inspection: normal respiratory effort and able to speak in complete sentences Auscultation: clear to auscultation bilaterally Cardio Rate: regular rate Rhythm: regular rhythm Heart sounds: Normal, physiologic split S2 sound present Peripheral pulses: radial pulses present and posterior tibial pulses present GI Inspection: No distended and No Abdominal panniculus present Palpation (GI): Soft to palpation, nontender, no guarding, not rigid and No hepatosplenomegaly present Percussion: Yes normal to percussion Auscultation: normal bowel sounds Rectal Exam - Female: deferred Skin General skin exam: no rashes or lesions noted, turgor normal, skin not dry, no jaundice, No spider nevi and no striae Rashes: no rashes Nails: normal Neuro General: oriented to person, oriented to place and oriented to time Cranial nerves: Yes Equal, round and reactive pupils present and Yes Normal hearing present Speech: No Abnormal speech present Extrem General: Yes normal to inspection, No clubbing, No cyanosis and No edema Psych Appearance: grossly normal and well kempt Mental Status: mental status grossly normal Speech and movement: Normal speech and movement present Affect: Labile affect present and Sad affect present Attitude: cooperative Thought process: Normal thought process present and not confabulating Thought content: Normal thought content present Insight: Fair insight present (Psych) Judgement: Fair judgement present (Psych) Assessment & Plan Assessment & Plan (1) External hemorrhoid, bleeding: Code(s): K64.4 - Residual hemorrhoidal skin tags Category: Medical Plan Her 's, unfortunately, from his illness. She is having quite a lot of gas in the morning, and she will have multiple bowel movements usually mostly in the morning, of varying consistencies. This makes it very difficult for her to plan her day and it is really aggravating her hemorrhoids. Because of her hemorrhoid she will have occasional bleeding but so far nothing copious. In the past we have done workup that have been negative including fecal calprotectin, pancreatic elastase, and a relatively unremarkable colonoscopy except for polyps in 2022. Obviously irritable bowels very individual journey and she has multiple possible contributing factors at this time. She is under quite a lot of stress, also she has not been eating as well or as regularly as she would in the past. However she is doing some things of benefit including utilizing a 5 her weight we for and she has utilize probiotic supplements in the past. We did have her on imipramine at that time she can not really remember how much it may have been helping her but we were at the lowest dose and did not get a chance to titrated up. She did not feel like the dicyclomine really did much for her. We did discuss intervention such as Creon which I think we will make available to her and some dbiy-xzo-bqdafns things like IBgard or encapsulated peppermint. I think will also trial restarting her imipramine and if she tolerates it at the lower dose but it is not effective we will slowly titrate that up to affect or adverse effect. She is a little bit gunshot of taking a lot of pills given what happened with her and that is understandable. She still would like a referral for female surgeon for hemorrhoids. I refer her to Dr. Spring Palma at [facility] at [address] She is quite worried given her experience with her that she may have cancer somewhere, I feel quite confident that she likely does not but I completely understand her concern. ROV 6 weeks. Orders: Referrals Colon & Rectal Referral K64.4 - Residual hemorrhoidal skin tags Medications: New zswloi-iysmutfw-fclptzn 24,000-76,000 -120,000 unit (Creon) 2 caps PO BID 30 days 120 caps 3RF K58.9 - Irritable bowel syndrome, unspecified Refilled imipramine HCl 10 mg PO BEDTIME 30 days 30 tabs 3RF K58.2 - Mixed irritable bowel syndrome Discontinued dicyclomine Discontinued Reason: Doctor's Order 20 mg PO BID 30 days 60 tabs 3RF K58.2 - Mixed irritable bowel syndrome Coding Level of Care Code Est Pt Level 4 (14005) Diagnoses External hemorrhoid, bleeding K64.4 Time Spent (min) 35
--- OUTSIDE RECORDS SUMMARY | 2024-10-02 16:10 | XMS_ITS | Patient Health Record ---
Author Organization [facility] Constance fermin [place] Address [address] [place] [address] Care Team Providers Care Residential Solar Sales Consultant Name Role Phone Srikanth BACON, Nita Hale Primary Care Provider Un available Black, Jolynn Unavailable [phone] Reason For Referral No Information Medications Medication SIG (Take, Route, Frequency, Duration) Notes Start Date End Date Status Vitamin B12 Not-Taki ng Vitamin B6 Not-Takin g Hydrocortisone Gavin-Pramoxine 2.5-1 % 1 application to affected area as needed Rectal Three times a day for 10 days 09/18/2015 Not-Taking Vit B6-Vit T54-Oatat 3 Acids Active Cyclobenzaprine HCl 10 MG 1 tablet Orall y once a day as needed 09/02/2013 Not-Taking Magnesium-Zinc Activ e Pantoprazole Sodium Not-Taking Vitamin D 400 UNIT/ML 2 ml Orally Once a day Not-Taking Escitalopram Oxalate 10 MG 1 tablet Oral ly Once a day for 30 day(s) 07/02/2013 Not-Taking Multivitamin Adult - Orally Not-Taking Fluocinonide 0.05 % as directed External ly BID for 10 days 03/11/2016 Not-Taking Restasis 0.05 % 1 drop into affected eye Ophthalmic Twice a day Active Diclofenac Sodium 3 % (Prior Auth: Rx Ref#:[id number]) Transdermal for 20 Not-Taking Magnesium-Zinc 133.33-5 MG Orally Not-Taking Vitamin D 400 UNIT Orally A ctive Tretinoin 0.025 % (Prior Auth: Rx Ref#:[id number]) External for 30 Not-Taking Multivitamins as directed Orally Active Clindamycin Phosphate 1 % (Prior Auth: R x Ref#:[id number]) External for 30 Not-Taking Night Splint as directed daily fo r 2-3 months 11/06/2017 Active [place] 3 Not-Taking Social History Tobacco Use: Social History Observation Description Date Details (start date - stop date) Current Smoker NA - NA Tobacco Use/Smoking Question Answer Notes Are you a: current smoker When did you start smoking? 1977 How often do you smoke cigarettes? every day How many cigarettes a day do you smoke? 6-10 How soon after you wake up d o you smoke your first cigarette? 6-30 minutes Are you interested in quitting? Thinking about q uitting Additional Findings: Tobacco Non-User Never chew ed tobacco Alcohol Screen Question Answer Notes Did you have a drink contain ing alcohol in the past year? Yes How often did you have a dri nk containing alcohol in the past year? Monthly or less (1 point) How many drinks did you have on a typical day when you were drinking in the past year? 1 or 2 drinks (0 point) How often did you have 6 or more drinks on one occasion in the past year? Never (0 point) Points 1 Interpretation Negative Tobacco use other than smoking: Question Answer Notes Are you an other tobacco user? No Problems No Known Problems Plan Of Treatment No Information Insurance Providers Payer Name Payer Address Payer Phone Subscriber Number Group Number Insured Name Patient Relationship to Insured Coverage Start Date Coverage End Date [facility] [address] [place] [address] [id number] Valerie Salcido Self - patient is the insured Medical (General) History Medical History History ICD Code Reflux Chicken pox Anxiety disorder Eczema Surgical History Surgery Date(Month/Year) Partial Hysterectomy 2007 appendectomy
[2024-10-02 16:19] VITALS: BP 102/66; PULSE 112; O2SAT 94; BMI 20.5
== END 2024-10-02 16:50 | disposition home or self-care (01) ==
LOC: HO.HGI 16:08
PROVIDERS: PCP Internal Medicine; Visit Provider Nurse Practitioner
DX: K64.4 Residual hemorrhoidal skin tags (principal)
CPT/HCPCS: 99214

== ENCOUNTER → 2024-10-02 16:07 | Outpatient (BNVA) | payer BC, SELFPAY | PROVIDERS: PCP Internal Medicine; Visit Provider Nurse Practitioner ==

== ENCOUNTER 2024-11-11 08:54 | Outpatient (REF) | payer BC, SELFPAY ==
--- NOTE | ~2024-11-11 | XR_ITS ---
EXAMINATION: XR WRIST 3 OR MORE VIEWS LEFT HISTORY: M25.532 - Pain in left wrist COMPARISON: There are no prior studies available for comparison. FINDINGS: Three views of the left wrist are submitted. There is a subchondral cyst in the distal scaphoid and a bone island in the trapezium. Osseous mineralization is otherwise normal. There is no fracture or dislocation. The joint spaces are preserved. The soft tissues are unremarkable. XR/XR wrist LT min 3V IMPRESSION: No evidence of fracture of the left wrist. Electronically signed by: Shiv Rocha MD 11/11/2024 09:50 AM EDT
== END 2024-11-11 08:55 | disposition home or self-care (01) ==
LOC: HO.HMGCX 08:54
PROVIDERS: PCP Internal Medicine; Visit Provider Physician Assistant
DX: M25.532 Pain in left wrist (principal); R22.32 Localized swelling, mass and lump, left upper limb
CPT/HCPCS: 73110

== ENCOUNTER 2024-11-11 08:54 | Outpatient (AMB) | payer BC, SELFPAY ==
--- OUTSIDE RECORDS SUMMARY | 2024-11-11 09:06 | XMS_ITS | Patient Health Record ---
Author Organization [facility] Constance fermin [place] Address [address] [place] [address] Care Team Providers Care Tube Drawing Supervisor Name Role Phone Srikanth BACON, Nita Hale Primary Care Provider Un available Black, Jolynn Unavailable [phone] Reason For Referral No Information Medications Medication SIG (Take, Route, Frequency, Duration) Notes Start Date End Date Status Vitamin B12 Not-Taki ng Vitamin B6 Not-Takin g Hydrocortisone Gavin-Pramoxine 2.5-1 % 1 application to affected area as needed Rectal Three times a day; Duration: 10 days 09/18/2015 Not-Taking Vit B6-Vit Z37-Oajns 3 Acids Active Cyclobenzaprine HCl 10 MG 1 tablet Orall y once a day as needed 09/02/2013 Not-Taking Magnesium-Zinc Activ e Pantoprazole Sodium Not-Taking Vitamin D 400 UNIT/ML 2 ml Orally Once a day Not-Taking Escitalopram Oxalate 10 MG 1 tablet Oral ly Once a day; Duration: 30 day(s) 07/02/2013 Not-Taking Multivitamin Adult - Orally Not-Taking Fluocinonide 0.05 % as directed External ly BID; Duration: 10 days 03/11/2016 Not-Takin g Restasis 0.05 % 1 drop into affected eye Ophthalmic Twice a day Active Diclofenac Sodium 3 % (Prior Auth: Rx Ref#:[id number]) Transdermal; Duration: 20 Not-Taking Magnesium-Zinc 133.33-5 MG Orally Not-Taking Vitamin D 400 UNIT Orally A ctive Tretinoin 0.025 % (Prior Auth: Rx Ref#:[id number]) External; Duration: 30 Not-Takin g Multivitamins as directed Orally Active Clindamycin Phosphate 1 % (Prior Auth: R x Ref#:[id number]) External; Duration: 30 Not-Takin g Night Splint as directed daily; Duration: 2-3 months 11/06/2017 Active [place] 3 Not-Taking Social History Tobacco Use: Social [...] Insured Coverage Start Date Coverage End Date [facility] [address] [place] [address] [id number] Valerie Salcido Self - patient is the insured Medical (General) History Medical History History ICD Code Reflux Chicken pox Anxiety disorder Eczema Surgical History Surgery Date(Month/Year) Partial Hysterectomy 2006 appendectomy
[2024-11-11 09:08] VITALS: BP 124/70; PULSE 66; TEMP 36.8; O2SAT 98; BMI 20.4
--- NOTE | 2024-11-11 09:08 | AM.OFFWIN_ITS ---
Intake Vital Signs 11/11/24 09:08 Height 5 ft 8 in Weight 134 lb BMI 20.4 BP 124/70 Blood Pressure Location Rt brachial Position Sitting Pulse 66 Pulse Source Pulse Oximeter Temp 98.2 F Temp Source Oral Pulse Oximetry (%) 98 Oxygen Delivery Method Room Air Intake Visit Reasons: EP LT wrist pain Intake Note: presents with left ulnar wrist pain, seems swollen with certain movements- couple weeks Patient Tobacco Use Status: Current everyday Tobacco user Allergies No Known Allergies (No Known Allergies*) Allergy (Verified 11/11/24 09:13) Do you need a note to return to daycare/school/sports/work: No HPI HPI Comments History of Present Illness Details History - The patient is a 59-year-old female pr esenting with evaluation of left wrist swelling and pain. - The patient reports noticing a bump on the left wrist approximately two weeks ago. - The pain is not constant and is associ ated with certain movements. - There is no history of cysts or simila r issues in the past. - The patient has attempted icing the ar ea without significant improvement. - no weakness, numbness, or tingling no trae. Physical Exam General: Cooperative, healthy appearing, comfortable, no acute distress and well developed Orientation: Patient oriented x3 Limitations: No limitations Head: Normal to inspection Ears: Hearing grossly normal bilaterally Nose: Normal External nose present Face and sinus: Normal facial exam Eyes: Appearance normal, both eyes and all related structures Neck: Normal visual inspection and Yes full ROM Respiratory: Normal respiratory effort and able to speak in complete sentences. Skin: no rashes or lesions noted Neuro: Patient oriented x3 Extremities: Moving all extremities normally, left distal ulnar wrist has a soft 1cm palpable lump. Full range of motion left wrist, 5/5 ophthalmic asst strength bilaterally [facility] Medical History Osteopenia of multiple sites History of diverticulitis External hemorrhoid, bleeding History of adenomatous polyp of colon Palmar nodule Mixed dyslipidemia Decreased pedal pulses Numbness and tingling of foot Fracture of metacarpal bone of left hand COVID-19 vaccine series completed Fracture of fifth metacarpal bone of left hand Osteopenia of right hip Impaired fasting glucose Dyslipidemia Rash of face Loose stools Cervical paraspinal muscle spasm Osteopenia of left hip Smoker unmotivated to quit Surgical menopause Eczema of both hands History of chickenpox History of anxiety disorder GERD (gastroesophageal reflux disease) Surgical History History of esophagogastroduodenoscopy (EGD) Hx of colonoscopy History of appendectomy History of hysterectomy, supracervical abdominal (subtotal) Family History Father Hypertension Mother Diabetes Stroke Brother Hypercholesteremia Brother Hypertension Social History Housing: House Alcohol intake: current Alcohol intake frequency: 0-2 drinks per day Alcohol type: beer and wine Patient Tobacco Use Status: Current everyday Tobacco user Tobacco use type: Cigarette Cigarettes Per Day: 10 Years Smoked: 40 e-Cigarette/Vaping Use: Never Used Second Hand Smoke Exposure: Yes service: No Current occupational status: employed Cognitive needs: No Hearing needs: No Vision needs: Yes Review of Systems Const All systems reviewed & are unremarkable except as noted in HPI and below Physical Exam Vital Signs: Last Vital Signs Temp 98.2 F 11/11/24 09:08 Pulse 106 H 11/11/24 09:08 BP 124/70 11/11/24 09:08 Pulse Ox 98 11/11/24 09:08 Oxygen Delivery Method Room Air 11/11/24 09:08 BMI result Body Mass Index 20.4 Assessment & Plan Assessment & Plan (1) Wrist pain, left: Code(s): M25.532 - Pain in left wrist Plan: Patient was informed and verbally consented to the use of an ambient scribe for clinic note documentation during this visit 1. Wrist Pain - Plan to obtain an x-ray of the left wrist to rule out any underlying pa thology. - Consideration of anti-inflammatory medication such as Advil or Aleve to reduce inflammation. - Differential diagnosis includes ganglion cyst, although presentation is atypical vs epidermoid cyst vs other. - Plan to monitor the swelling and reassess after imaging results. Orders: Orders XR wrist LT min 3V Today M25.532 - Pain in left wrist Coding Level of Care Code Est Pt Level 4 (13875) Diagnoses Wrist pain, left M25.532
== END 2024-11-11 09:38 | disposition home or self-care (01) ==
PROVIDERS: PCP Internal Medicine; Visit Provider Physician Assistant
DX: M25.532 Pain in left wrist (principal)

== ENCOUNTER → 2024-11-11 09:32 | Outpatient (BNV) | payer BC, SELFPAY | PROVIDERS: PCP Internal Medicine; Visit Provider Radiology Diagnostic Radiology | DX: M25.532 Pain in left wrist (principal) | CPT/HCPCS: 73110 ==

== ENCOUNTER 2024-11-13 10:35 | Outpatient (AMB) | payer BC, SELFPAY ==
--- NOTE | 2024-11-13 10:37 | MHC.OFFVIS ---
Vital Signs 11/13/24 10:38 Height 5 ft 8 in Weight 132 lb 4.438 oz BMI 20.1 BP 150/95 H Blood Pressure Location Lt brachial Position Sitting Pulse 86 Intake Visit Reasons: IBS, roids 6 week follow up Intake Note: Valerie presents in the office as a 6 week follow up. CC: She states that not much has changed sisnec her last visit. Financial Institution Vice President Required: No Allergies No Known Allergies (No Known Allergies*) Allergy (Verified 11/13/24 10:40) HPI HPI IBS, roids 6 week follow up: Details: Assessment & Plan (1) External hemorrhoid, bleeding: Code(s): K64.4 - Residual hemorrhoidal skin tags Category: Medical Plan Her 's, unfortunately, from his illness. She is having quite a lot of gas in the morning, and she will have multiple bowel movements usually mostly in the morning, of varying consistencies. This makes it very difficult for her to plan her day and it is really aggravating her hemorrhoids. Because of her hemorrhoid she will have occasional bleeding but so far nothing copious. In the past we have done workup that have been negative including fecal calprotectin, pancreatic elastase, and a relatively unremarkable colonoscopy except for polyps in 2022. Obviously irritable bowels very individual journey and she has multiple possible contributing factors at this time. She is under quite a lot of stress, also she has not been eating as well or as regularly as she would in the past. However she is doing some things of benefit including utilizing a 5 her weight we for and she has utilize probiotic supplements in the past. We did have her on imipramine at that time she can not really remember how much it may have been helping her but we were at the lowest dose and did not get a chance to titrated up. She did not feel like the dicyclomine really did much for her. We did discuss intervention such as Creon which I think we will make available to her and some [id number] things like IBgard or encapsulated peppermint. I think will also trial restarting her imipramine and if she tolerates it at the lower dose but it is not effective we will slowly titrate that up to affect or adverse effect. She is a little bit gunshot of taking a lot of pills given what happened with her and that is understandable. She still would like a referral for female surgeon for hemorrhoids. I refer her to Dr. Spring Palma at [facility] at [address] She is quite worried given her experience with her that she may have cancer somewhere, I feel quite confident that she likely does not but I completely understand her concern. ROV 6 weeks. Orders: Referrals Colon & Rectal Referral K64.4 - Residual hemorrhoidal skin tags Medications: New xljxrx-gclapvvc-stbvsky 24,000-76,000 -120,000 unit (Creon) 2 caps PO BID 30 days 120 caps 3RF K58.9 - Irritable bowel syndrome, unspecified Refilled imipramine HCl 10 mg PO BEDTIME 30 days 30 tabs 3RF K58.2 - Mixed irritable bowel syndrome Discontinued dicyclomine Discontinued Reason: Doctor's Order 20 mg PO BID 30 days 60 tabs 3RF K58.2 - Mixed irritable bowel syndrome TODAYS VISIT No difference with creon AND imipramine 10mg. No s/e either. She asks about a cleanse but I am not a big proponent of this for the GI tract. Considering SIBO and will do a trial of augmentin with probiotic. Gas and frequent BM's continue. She has an appt at [facility] but has to see the JEWELRY SALES ASSOCIATE first. Her roids are still quite a problems. ROV 4-5 weeks. COUNT INCLUDES THE [facility] Medical History Osteopenia of multiple sites History of diverticulitis External hemorrhoid, bleeding History of adenomatous polyp of colon Palmar nodule Mixed dyslipidemia Decreased pedal pulses Numbness and tingling of foot Fracture of metacarpal bone of left hand COVID-19 vaccine series completed Fracture of fifth metacarpal bone of left hand Osteopenia of right hip Impaired fasting glucose Dyslipidemia Rash of face Loose stools Cervical paraspinal muscle spasm Osteopenia of left hip Smoker unmotivated to quit Surgical menopause Eczema of both hands History of chickenpox History of anxiety disorder GERD (gastroesophageal reflux disease) Surgical History History of esophagogastroduodenoscopy (EGD) Hx of colonoscopy History of appendectomy History of hysterectomy, supracervical abdominal (subtotal) Family History Father Hypertension Mother Diabetes Stroke Brother Hypercholesteremia Brother Hypertension Social History Housing: House Alcohol intake: current Alcohol intake frequency: 0-2 drinks per day Alcohol type: beer and wine Patient Tobacco Use Status: Current everyday Tobacco user Tobacco use type: Cigarette Cigarettes Per Day: 10 Years Smoked: 40 e-Cigarette/Vaping Use: Never Used Second Hand Smoke Exposure: Yes service: No Current occupational status: employed Cognitive needs: No Hearing needs: No Vision needs: Yes Review of Systems Const Denies fatigue, Denies fever(s), Denies night sweats, Denies poor appetite and Denies weight loss Eyes Details: glasses Reports requires corrective lenses ENT Reports Normal hearing present, Denies dental pain, Denies dysphagia, Denies hearing loss, Denies mouth pain, Denies odynophagia, Denies throat swelling, Denies tongue swelling and Reports other (Dentition adequate) Card Reports no additional complaints Resp Reports no additional complaints GI Details: Denies abdominal pain, Denies melena, Reports bloating, Denies hematochezia, Denies constipation, Denies GI cramping, Denies dysphagia, Denies excessive flatus, Denies early satiety, Reports heartburn, Denies diarrhea, Reports loose stools, Denies nausea, Denies odynophagia, Denies vomiting and Denies hematemesis Skin/Breast Denies pruritus, Denies lesions, Denies rash and Denies jaundice Neuro Reports Normal hearing present and Denies Abnormal speech present Endo Denies fatigue Aller/Immun Denies throat swelling and Denies tongue swelling Physical Exam Vital Signs: Last Vital Signs Pulse 86 11/13/24 10:38 BP 150/95 H 11/13/24 10:38 BMI result Body Mass Index 20.1 Const General: cooperative, no acute distress, well developed and well groomed Nutritional Appearance: well nourished, obese and overweight Orientation/consciousness: oriented to person, oriented to place and oriented to time Limitations: No language barrier, ambulation with cane, ambulation with walker and wheelchair HEENT Head: Yes normocephalic and Yes atraumatic Eyes General: appearance normal, both eyes and all related structures Pupils: Equal, round and reactive pupils present Neck Neck: Yes normal visual inspection and Yes no lymphadenopathy Thyroid: Thyroid normal Resp Effort & Inspection: normal respiratory effort and able to speak in complete sentences Auscultation: clear to auscultation bilaterally Cardio Rate: regular rate Rhythm: regular rhythm Heart sounds: Normal, physiologic split S2 sound present Peripheral pulses: radial pulses present and posterior tibial pulses present GI Inspection: No distended and No Abdominal panniculus present Palpation (GI): Soft to palpation, nontender, no guarding, not rigid and No hepatosplenomegaly present Percussion: Yes normal to percussion Auscultation: normal bowel sounds Rectal Exam - Female: deferred Skin General skin exam: no rashes or lesions noted, turgor normal, skin not dry, no jaundice, No spider nevi and no striae Rashes: no rashes Nails: normal Neuro General: oriented to person, oriented to place and oriented to time Cranial nerves: Yes Equal, round and reactive pupils present and Yes Normal hearing present Speech: No Abnormal speech present Extrem General: Yes normal to inspection, No clubbing, No cyanosis and No edema Psych Appearance: grossly normal and well kempt Mental Status: mental status grossly normal Speech and movement: Normal speech and movement present Affect: normal affect Attitude: cooperative Thought process: Normal thought process present and not confabulating Thought content: Normal thought content present Insight: Fair insight present (Psych) Judgement: Fair judgement present (Psych) Assessment & Plan Assessment & Plan (1) GERD (gastroesophageal reflux disease): Code(s): K21.9 - Gastro-esophageal reflux disease without esophagitis Category: Medical Qualifiers: Esophagitis presence: without esophagitis Qualified Code(s): K21.9 - Gastro-esophageal reflux disease without esophagitis (2) External hemorrhoid, bleeding: Code(s): K64.4 - Residual hemorrhoidal skin tags Category: Medical (3) Irritable bowel syndrome with both constipation and diarrhea: Code(s): K58.2 - Mixed irritable bowel syndrome Category: Medical Plan No difference with creon AND imipramine 10mg. No s/e either. She asks about a cleanse but I am not a big proponent of this for the GI tract. Considering SIBO and will do a trial of augmentin with probiotic. Gas and frequent BM's continue. She has an appt at [facility] but has to see the JEWELRY SALES ASSOCIATE first. Her roids are still quite a problems. ROV 4-5 weeks. Medications: New amoxicillin-pot clavulanate 875-125 mg 1 tab PO BID 20 tabs 0RF Changed From imipramine HCl 10 mg PO BEDTIME 30 days 30 tabs 3RF K58.2 - Mixed irritable bowel syndrome To imipramine HCl 20 mg (2 x 10 mg) PO BEDTIME 60 tabs 3RF 30 days K58.2 - Mixed irritable bowel syndrome Coding Level of Care Code Est Pt Level 3 (18823) Diagnoses Gastroesophageal reflux disease without esophagitis K21.9 Esophagitis presence: without esophagitis External hemorrhoid, bleeding K64.4 Irritable bowel syndrome with both constipation and diarrhea K58.2
[2024-11-13 10:38] VITALS: BP 150/95; PULSE 86; BMI 20.1
--- OUTSIDE RECORDS SUMMARY | 2024-11-13 11:13 | XMS_ITS | Patient Health Record ---
Author Organization [facility] Constance fermin [place] Address [address] [place] [address] Care Team Providers Care Rn Discharge Name Role Phone Srikanth BACON, Nita Hale Primary Care Provider Un available Black, Jolynn Unavailable [phone] Reason For Referral No Information Medications Medication SIG (Take, Route, Frequency, Duration) Notes Start Date End Date Status Vitamin B12 Not-Taki ng Vitamin B6 Not-Takin g Hydrocortisone Gavin-Pramoxine 2.5-1 % 1 application to affected area as needed Rectal Three times a day; Duration: 10 days 09/18/2015 Not-Taking Vit B6-Vit [id number] 3 Acids Active Cyclobenzaprine HCl 10 MG [...] Diclofenac Sodium 3 % (Prior Auth: Rx Ref#:[id number]) Transdermal; Duration: 20 Not-Taking Magnesium-Zinc 133.33-5 MG Orally Not-Taking Vitamin D 400 UNIT Orally A ctive Tretinoin 0.025 % (Prior Auth: Rx Ref#:[id number]) External; Duration: 30 Not-Takin g Multivitamins as directed Orally Active Clindamycin Phosphate 1 % (Prior Auth: R x Ref#:[id number]) External; Duration: 30 Not-Takin g Night Splint as directed daily; Duration: 2-3 months 11/06/2017 Active [place] 3 Not-Taking Social History Tobacco Use: Social [...] Insured Coverage Start Date Coverage End Date [facility] [address] [place] [address] [id number] Valerie Salcido Self - patient is the insured Medical (General) History Medical History History ICD Code Reflux Chicken pox Anxiety disorder Eczema Surgical History Surgery Date(Month/Year) Partial Hysterectomy 2006 appendectomy
== END 2024-11-13 11:07 | disposition home or self-care (01) ==
LOC: HO.HGI 10:36
PROVIDERS: PCP Internal Medicine; Visit Provider Nurse Practitioner
DX: K21.9 Gastro-esophageal reflux disease without esophagitis (principal); K64.4 Residual hemorrhoidal skin tags; K58.2 Mixed irritable bowel syndrome
CPT/HCPCS: 99213

== ENCOUNTER 2024-12-31 10:27 | Outpatient (AMB) | payer BC, SELFPAY ==
--- NOTE | 2024-12-31 10:34 | MHC.OFFVIS ---
Vital Signs 12/31/24 10:40 Height 5 ft 8 in Weight 136 lb BMI 20.7 BP 137/72 Blood Pressure Location Lt brachial Position Sitting Intake Visit Reasons: ? SIBO, IBS Intake Note: Valerie presents in office today in follow up of IBS. CC: Patient states that she saw the surgeon at [facility] who placed her on Benefiber and hydrocortisone cream. She was also advised to drink more water. She states it has helped. Process Engineering Technician Required: No Accompanied by: Self / Same As Patient Allergies No Known Allergies (No Known Allergies*) Allergy (Verified 12/31/24 10:50) HPI HPI ? SIBO, IBS: Details: Assessment & Plan (1) GERD (gastroesophageal reflux disease): Code(s): K21.9 - Gastro-esophageal reflux disease without esophagitis Category: Medical Qualifiers: Esophagitis presence: without esophagitis Qualified Code(s): K21.9 - Gastro-esophageal reflux disease without esophagitis (2) External hemorrhoid, bleeding: Code(s): K64.4 - Residual hemorrhoidal skin tags Category: Medical (3) Irritable bowel syndrome with both constipation and diarrhea: Code(s): K58.2 - Mixed irritable bowel syndrome Category: Medical Plan No difference with creon AND imipramine 10mg. No s/e either. She asks about a cleanse but I am not a big proponent of this for the GI tract. Considering SIBO and will do a trial of augmentin with probiotic. Gas and frequent BM's continue. She has an appt at [facility] but has to see the NETWORK SUPPORT first. Her roids are still quite a problems. ROV 4-5 weeks. Medications: New amoxicillin-pot clavulanate 875-125 mg 1 tab PO BID 20 tabs 0RF Changed From imipramine HCl 10 mg PO BEDTIME 30 days 30 tabs 3RF K58.2 - Mixed irritable bowel syndrome To imipramine HCl 20 mg (2 x 10 mg) PO BEDTIME 60 tabs 3RF 30 days K58.2 - Mixed irritable bowel syndrome TODAY'S VISIT REPLACED BY [facility] Medical History Osteopenia of multiple sites History of diverticulitis External hemorrhoid, bleeding History of adenomatous polyp of colon Palmar nodule Mixed dyslipidemia Decreased pedal pulses Numbness and tingling of foot Fracture of metacarpal bone of left hand COVID-19 vaccine series completed Fracture of fifth metacarpal bone of left hand Osteopenia of right hip Impaired fasting glucose Dyslipidemia Rash of face Loose stools Cervical paraspinal muscle spasm Osteopenia of left hip Smoker unmotivated to quit Surgical menopause Eczema of both hands History of chickenpox History of anxiety disorder GERD (gastroesophageal reflux disease) Surgical History History of esophagogastroduodenoscopy (EGD) Hx of colonoscopy History of appendectomy History of hysterectomy, supracervical abdominal (subtotal) Family History Father Hypertension Mother Diabetes Stroke Brother Hypercholesteremia Brother Hypertension Social History Housing: House Alcohol intake: current Alcohol intake frequency: 0-2 drinks per day Alcohol type: beer and wine Patient Tobacco Use Status: Current everyday Tobacco user Tobacco use type: Cigarette Cigarettes Per Day: 10 Years Smoked: 40 e-Cigarette/Vaping Use: Never Used Second Hand Smoke Exposure: Yes service: No Current occupational status: employed Cognitive needs: No Hearing needs: No Vision needs: Yes Review of Systems Const Denies fatigue, Denies fever(s), Denies night sweats, Denies poor appetite and Denies weight loss Eyes Details: glasses Reports requires corrective lenses ENT Reports Normal hearing present, Denies dental pain, Denies dysphagia, Denies hearing loss, Denies mouth pain, Denies odynophagia, Denies throat swelling, Denies tongue swelling and Reports other (Dentition adequate) Card Reports no additional complaints Resp Reports no additional complaints GI Details: Denies abdominal pain, Denies melena, Denies bloating, Denies hematochezia, Denies constipation, Denies GI cramping, Denies dysphagia, Denies excessive flatus, Denies early satiety, Reports heartburn, Denies diarrhea, Reports loose stools, Denies nausea, Denies odynophagia, Denies vomiting and Denies hematemesis Skin/Breast Denies pruritus, Denies lesions, Denies rash and Denies jaundice Neuro Reports Normal hearing present, Denies Abnormal speech present and Reports memory loss Psych Reports memory loss, Reports mood swings, Denies homicidal ideation and Denies suicidal ideation Endo Denies fatigue Aller/Immun Denies throat swelling and Denies tongue swelling Physical Exam Vital Signs: Last Vital Signs BP 137/72 12/31/24 10:40 BMI result Body Mass Index 20.7 Const General: cooperative, no acute distress, well developed and well groomed Nutritional Appearance: average body habitus and well nourished Orientation/consciousness: oriented to person, oriented to place and oriented to time Limitations: No language barrier HEENT Head: Yes normocephalic and Yes atraumatic Eyes General: appearance normal, both eyes and all related structures Pupils: Equal, round and reactive pupils present Neck Neck: Yes normal visual inspection and Yes no lymphadenopathy Thyroid: Thyroid normal Resp Effort & Inspection: normal respiratory effort and able to speak in complete sentences Auscultation: clear to auscultation bilaterally Cardio Rate: regular rate Rhythm: regular rhythm Heart sounds: Normal, physiologic split S2 sound present Peripheral pulses: radial pulses present and posterior tibial pulses present GI Inspection: No distended and No Abdominal panniculus present Palpation (GI): Soft to palpation, nontender, no guarding, not rigid and No hepatosplenomegaly present Percussion: Yes normal to percussion Auscultation: normal bowel sounds Rectal Exam - Female: deferred Skin General skin exam: no rashes or lesions noted, turgor normal, skin not dry, no jaundice, No spider nevi and no striae Rashes: no rashes Nails: normal Neuro General: oriented to person, oriented to place and oriented to time Cranial nerves: Yes Equal, round and reactive pupils present and Yes Normal hearing present Speech: No Abnormal speech present Extrem General: Yes normal to inspection, No clubbing, No cyanosis and No edema Psych Appearance: grossly normal and well kempt Mental Status: mental status grossly normal Speech and movement: Normal speech and movement present Affect: Labile affect present Attitude: cooperative Thought process: Normal thought process present and not confabulating Thought content: Normal thought content present Insight: Fair insight present (Psych) Judgement: Fair judgement present (Psych) Assessment & Plan Assessment & Plan (1) GERD (gastroesophageal reflux disease): Code(s): K21.9 - Gastro-esophageal reflux disease without esophagitis Category: Medical Qualifiers: Esophagitis presence: without esophagitis Qualified Code(s): K21.9 - Gastro-esophageal reflux disease without esophagitis (2) Irritable bowel syndrome with both constipation and diarrhea: Code(s): K58.2 - Mixed irritable bowel syndrome Category: Medical (3) External hemorrhoid, bleeding: Code(s): K64.4 - Residual hemorrhoidal skin tags Category: Medical Plan - The patient is a 60-year-old female presenting with gastrointestinal symptoms. - Reports stool irregularity with variable consistency and occasional green coloring due to bile acids. - Significant scarring from prior hemorrhoidal disease. - Increased stool consistency with a fiber regimen suggested by the surgeon who saw her for her hemorrhoids. We also had recently increase the imipramine to 2 tablets at night. She has been encouraged by surgery also to increase her daily water intake which she is having some difficulty but is trying to implement. - Current treatment includes hydrocortisone cream for hemorrhoidal soreness. - we discussed potentially stopping the Creon as she was uncertain whether this was helpful. - Memory issues present, not attributed to medications. -she continues on pantoprazole 40 mg a day with good control of her GERD. We discussed potentially trying a food diary since she admits since her she is eating out more or eating more easy to prepare foods. With this she is having difficulty connecting her symptoms any type of foods eaten. This would be important because she may have trouble processing certain foods. In the meantime, she has had no side effects from the imipramine so will increase it to 3 tablets at bedtime. If she wishes she can either continue or stop the Creon to simplify her overall pill burden. Return office visit in 6 weeks to evaluate her response Medications: Changed From imipramine HCl 20 mg (2 x 10 mg) PO BEDTIME 30 days 60 tabs 3RF K58.2 - Mixed irritable bowel syndrome To imipramine HCl 30 mg (3 x 10 mg) PO BEDTIME 90 tabs 3RF 30 days K58.2 - Mixed irritable bowel syndrome Coding Level of Care Code Est Pt Level 3 (01967) Diagnoses Gastroesophageal reflux disease without esophagitis K21.9 Esophagitis presence: without esophagitis Irritable bowel syndrome with both constipation and diarrhea K58.2 External hemorrhoid, bleeding K64.4
[2024-12-31 10:40] VITALS: BP 137/72; BMI 20.7
--- OUTSIDE RECORDS SUMMARY | 2024-12-31 11:59 | XMS_ITS | Patient Health Record ---
Author Organization [facility] Constance fermin [place] Address [address] [place] [address] Care Team Providers Care Injection Mold Technician Name Role Phone Srikanth BACON, Nita Hale Primary Care Provider Un available Black, Jolynn Unavailable [phone] Reason For Referral No Information Medications Medication SIG (Take, Route, Frequency, Duration) Notes Start Date End Date Status Vitamin B12 Not-Taki ng Vitamin B6 Not-Takin g Hydrocortisone Gavin-Pramoxine 2.5-1 % 1 application to affected area as needed Rectal Three times a day; Duration: 10 days 09/18/2015 Not-Taking Vit B6-Vit C73-Ghwfx 3 Acids Active Cyclobenzaprine HCl 10 MG [...] Diclofenac Sodium 3 % (Prior Auth: Rx Ref#:[id number]) Transdermal; Duration: 20 Not-Taking Magnesium-Zinc 133.33-5 MG Orally Not-Taking Vitamin D 400 UNIT Orally A ctive Tretinoin 0.025 % (Prior Auth: Rx Ref#:[id number]) External; Duration: 30 Not-Takin g Multivitamins as directed Orally Active Clindamycin Phosphate 1 % (Prior Auth: R x Ref#:[id number]) External; Duration: 30 Not-Takin g Night Splint as directed daily; Duration: 2-3 months 11/06/2017 Active [place] 3 Not-Taking Social History Tobacco Use: Social [...] Insured Coverage Start Date Coverage End Date [facility] [address] [place] [address] [id number] Valerie Salcido Self - patient is the insured Medical (General) History Medical History History ICD Code Reflux Chicken pox Anxiety disorder Eczema Surgical History Surgery Date(Month/Year) Partial Hysterectomy 2006 appendectomy
== END 2024-12-31 11:06 | disposition home or self-care (01) ==
LOC: HO.HGI 10:28
PROVIDERS: PCP Internal Medicine; Visit Provider Nurse Practitioner
DX: K21.9 Gastro-esophageal reflux disease without esophagitis (principal); K58.2 Mixed irritable bowel syndrome; K64.4 Residual hemorrhoidal skin tags
CPT/HCPCS: 99213

== ENCOUNTER 2025-03-04 11:09 | Outpatient (AMB) | payer BC, SELFPAY ==
--- NOTE | 2025-03-04 11:19 | MHC.OFFVIS ---
Vital Signs 03/04/25 11:21 Height 5 ft 8 in Weight 134 lb 7.712 oz BMI 20.4 BP 145/83 H Blood Pressure Location Lt brachial Position Sitting Pulse 107 H Intake Visit Reasons: 6 weeks follow up IBS, hemorrhoids Intake Note: Valerie presents in the office as a 6 week follow up for IBS and Hemorrhoids CC: She states that she is not having concerns today! Allergies No Known Allergies (No Known Allergies*) Allergy (Verified 03/04/25 11:22) Medication List - Last Reconciled 03/04/25 by SARAI Corado [id number] mg 1 tab PO cholecalciferol (vitamin D3) 10 mcg PO DAILY cyclosporine 0.05% (Restasis) 1 drp ophthalmic (eye) Q12H guar gum 2 tbsp PO DAILY hydrocortisone 2.5% appl topical imipramine HCl 30 mg (3 x 10 mg) PO BEDTIME 30 days krill oil 500 mg PO DAILY L.rhamnosus-B.animalis 3 billion cell ([employer]) 1 cap PO DAILY ujmvmw-ymtlwnmn-uuzytru (pork) 24,000-76,000 -120,000 unit (Creon) 2 caps PO BID 30 days multivitamin 1 cap PO DAILY pantoprazole 40 mg PO DAILY vitamin B complex (B Complex-Vitamin B12 tablet) 1 tab PO DAILY wheat dextrin (Benefiber Clear Sugar Free(dextrin)) 1.5 grams PO BID HPI HPI 6 weeks follow up IBS, hemorrhoids: Details: Assessment & Plan (1) GERD (gastroesophageal reflux disease): Code(s): K21.9 - Gastro-esophageal reflux disease without esophagitis Category: Medical Qualifiers: Esophagitis presence: without esophagitis Qualified Code(s): K21.9 - Gastro-esophageal reflux disease without esophagitis (2) Irritable bowel syndrome with both constipation and diarrhea: Code(s): K58.2 - Mixed irritable bowel syndrome Category: Medical (3) External hemorrhoid, bleeding: Code(s): K64.4 - Residual hemorrhoidal skin tags Category: Medical Plan - The patient is a 60-year-old female presenting with gastrointestinal symptoms. - Reports stool irregularity with variable consistency and occasional green coloring due to bile acids. - Significant scarring from prior hemorrhoidal disease. - Increased stool consistency with a fiber regimen suggested by the surgeon who saw her for her hemorrhoids. We also had recently increase the imipramine to 2 tablets at night. She has been encouraged by surgery also to increase her daily water intake which she is having some difficulty but is trying to implement. - Current treatment includes hydrocortisone cream for hemorrhoidal soreness. - we discussed potentially stopping the Creon as she was uncertain whether this was helpful. - Memory issues present, not attributed to medications. -she continues on pantoprazole 40 mg a day with good control of her GERD. We discussed potentially trying a food diary since she admits since her she is eating out more or eating more easy to prepare foods. With this she is having difficulty connecting her symptoms any type of foods eaten. This would be important because she may have trouble processing certain foods. In the meantime, she has had no side effects from the imipramine so will increase it to 3 tablets at bedtime. If she wishes she can either continue or stop the Creon to simplify her overall pill burden. Return office visit in 6 weeks to evaluate her response Medications: Changed From imipramine HCl 20 mg (2 x 10 mg) PO BEDTIME 30 days 60 tabs 3RF K58.2 - Mixed irritable bowel syndrome To imipramine HCl 30 mg (3 x 10 mg) PO BEDTIME 90 tabs 3RF 30 days K58.2 - Mixed irritable bowel syndrome TODAY'S VISIT [facility] Medical History Osteopenia of multiple sites History of diverticulitis External hemorrhoid, bleeding History of adenomatous polyp of colon Palmar nodule Mixed dyslipidemia Decreased pedal pulses Numbness and tingling of foot Fracture of metacarpal bone of left hand COVID-19 vaccine series completed Fracture of fifth metacarpal bone of left hand Osteopenia of right hip Impaired fasting glucose Dyslipidemia Rash of face Loose stools Cervical paraspinal muscle spasm Osteopenia of left hip Smoker unmotivated to quit Surgical menopause Eczema of both hands History of chickenpox History of anxiety disorder GERD (gastroesophageal reflux disease) Surgical History History of esophagogastroduodenoscopy (EGD) Hx of colonoscopy History of appendectomy History of hysterectomy, supracervical abdominal (subtotal) Family History Father Hypertension Mother Diabetes Stroke Brother Hypercholesteremia Brother Hypertension Social History Housing: House Alcohol intake: current Alcohol intake frequency: 0-2 drinks per day Alcohol type: beer and wine Patient Tobacco Use Status: Current everyday Tobacco user Tobacco use type: Cigarette Cigarettes Per Day: 10 Years Smoked: 40 e-Cigarette/Vaping Use: Never Used Second Hand Smoke Exposure: Yes service: No Current occupational status: employed Cognitive needs: No Hearing needs: No Vision needs: Yes Review of Systems Const Denies fatigue, Denies fever(s), Denies night sweats, Denies poor appetite and Denies weight loss Eyes Details: glasses Reports requires corrective lenses ENT Reports Normal hearing present, Denies dental pain, Denies dysphagia, Denies hearing loss, Denies mouth pain, Denies odynophagia, Denies throat swelling, Denies tongue swelling and Reports other (Dentition adequate) Card Reports no additional complaints Resp Reports no additional complaints GI Details: Denies abdominal pain, Denies melena, Denies bloating, Reports hematochezia, Denies constipation, Reports GI cramping, Denies dysphagia, Denies excessive flatus, Denies early satiety, Denies heartburn, Denies diarrhea, Reports loose stools, Denies nausea, Denies odynophagia, Denies vomiting and Denies hematemesis Skin/Breast Denies pruritus, Denies lesions, Denies rash and Denies jaundice Neuro Reports Normal hearing present and Denies Abnormal speech present Endo Denies fatigue Aller/Immun Denies throat swelling and Denies tongue swelling Physical Exam Vital Signs: Last Vital Signs Pulse 107 H 03/04/25 11:21 BP 145/83 H 03/04/25 11:21 BMI result Body Mass Index 20.4 Const General: cooperative, no acute distress, well developed and well groomed Nutritional Appearance: average body habitus and well nourished Orientation/consciousness: oriented to person, oriented to place and oriented to time Limitations: No language barrier HEENT Head: Yes normocephalic and Yes atraumatic Eyes General: appearance normal, both eyes and all related structures Pupils: Equal, round and reactive pupils present Neck Neck: Yes normal visual inspection and Yes no lymphadenopathy Thyroid: Thyroid normal Resp Effort & Inspection: normal respiratory effort and able to speak in complete sentences Auscultation: clear to auscultation bilaterally Cardio Rate: regular rate Rhythm: regular rhythm Heart sounds: Normal, physiologic split S2 sound present Peripheral pulses: radial pulses present and posterior tibial pulses present GI Inspection: No distended and No Abdominal panniculus present Palpation (GI): Soft to palpation, nontender, no guarding, not rigid and No hepatosplenomegaly present Percussion: Yes normal to percussion Auscultation: normal bowel sounds Rectal Exam - Female: deferred Skin General skin exam: no rashes or lesions noted, turgor normal, skin not dry, no jaundice, No spider nevi and no striae Rashes: no rashes Nails: normal Neuro General: oriented to person, oriented to place and oriented to time Cranial nerves: Yes Equal, round and reactive pupils present and Yes Normal hearing present Speech: No Abnormal speech present Extrem General: Yes normal to inspection, No clubbing, No cyanosis and No edema Psych Appearance: grossly normal and well kempt Mental Status: mental status grossly normal Speech and movement: Normal speech and movement present Affect: normal affect Attitude: cooperative Thought process: Normal thought process present and not confabulating Thought content: Normal thought content present Insight: Fair insight present (Psych) Judgement: Fair judgement present (Psych) Assessment & Plan Assessment & Plan (1) Irritable bowel syndrome with both constipation and diarrhea: Code(s): K58.2 - Mixed irritable bowel syndrome Category: Medical (2) External hemorrhoid, bleeding: Code(s): K64.4 - Residual hemorrhoidal skin tags Category: Medical (3) GERD (gastroesophageal reflux disease): Code(s): K21.9 - Gastro-esophageal reflux disease without esophagitis Category: Medical Qualifiers: Esophagitis presence: without esophagitis Qualified Code(s): K21.9 - Gastro-esophageal reflux disease without esophagitis Plan Her medicines include pantoprazole 40 mg once a day, imipramine 3 tabs at night, probiotic, creon (was taking 2 qam but not second dose yet) and a fiber supplement She is slowly improving in terms of her stooling. She had a period when she was having extensive rectal bleeding, partially due to the irritability of her bowels. I had referred her to a female rectal surgeon at [facility] (she prefers only females due to her anxiety) and they are discussing various modalities for treatment for her severe bleeding including possible rubber-band ligation or surgery. In the meantime she has been more faithful about utilizing her fiber and she is using 3 imipramine at bedtime with better control of her bowels. She is also utilizing a hydrocortisone cream and her Creon. The Creon she is only taking 2 capsules in the morning and this seems to be about as effective as if she took it twice a day so I leave it up to her as to whether she wants to add in the b.i.d. dosing. Return office visit in 3 months to see where she is at with her bleeding and irritable bowel. Medications: Refilled imipramine HCl 30 mg (3 x 10 mg) PO BEDTIME 90 tabs 6RF 30 days K58.2 - Mixed irritable bowel syndrome pantoprazole 40 mg PO DAILY 90 tabs 3RF Coding Level of Care Code Est Pt Level 3 (22550) Diagnoses Irritable bowel syndrome with both constipation and diarrhea K58.2 External hemorrhoid, bleeding K64.4 Gastroesophageal reflux disease without esophagitis K21.9 Esophagitis presence: without esophagitis
[2025-03-04 11:21] VITALS: BP 145/83; PULSE 107; BMI 20.4
== END 2025-03-04 12:39 | disposition home or self-care (01) ==
LOC: HO.HGI 11:10
PROVIDERS: PCP Internal Medicine; Visit Provider Nurse Practitioner
DX: K58.2 Mixed irritable bowel syndrome (principal); K64.4 Residual hemorrhoidal skin tags; K21.9 Gastro-esophageal reflux disease without esophagitis
CPT/HCPCS: 99213

== ENCOUNTER 2025-03-28 09:10 | Outpatient (REF) | payer BC, SELFPAY ==
--- OUTSIDE RECORDS SUMMARY | 2025-03-28 09:13 | XMS_ITS | Patient Health Record ---
Author Organization [facility] Constance fermin [place] Address [address] [place] [address] Care Team Providers Care Medicare Sales Representative Name Role Phone Srikanth BACON, Nita Hale Primary Care Provider Un available Black, Jolynn Unavailable [phone] Reason For Referral No Information Medications Medication SIG (Take, Route, Frequency, Duration) Notes Start Date End Date Status Vitamin B12 Not-Taki ng Vitamin B6 Not-Takin g Hydrocortisone Gavin-Pramoxine 2.5-1 % 1 application to affected area as needed Rectal Three times a day; Duration: 10 days 09/18/2015 Not-Taking Vit B6-Vit [id number] 3 Acids Active Cyclobenzaprine HCl 10 MG [...] Diclofenac Sodium 3 % (Prior Auth: Rx Ref#:[id number]) Transdermal; Duration: 20 Not-Taking Magnesium-Zinc 133.33-5 MG Orally Not-Taking Vitamin D 400 UNIT Orally A ctive Tretinoin 0.025 % (Prior Auth: Rx Ref#:[id number]) External; Duration: 30 Not-Takin g Multivitamins as directed Orally Active Clindamycin Phosphate 1 % (Prior Auth: R x Ref#:[id number]) External; Duration: 30 Not-Takin g Night Splint as directed daily; Duration: 2-3 months 11/06/2017 Active [place] 3 Not-Taking Social History Tobacco Use: Social [...] Insured Coverage Start Date Coverage End Date [facility] [address] [place] [address] [phone] [id number] Valerie Salcido Self - patient is the insured Medical (General) History Medical History History ICD Code Reflux Chicken pox Anxiety disorder Eczema Surgical History Surgery Date(Month/Year) Partial Hysterectomy 2006 appendectomy
[2025-03-28 13:08] LABS: Alanine Aminotransferase 32 U/L (0-31); Anion Gap 15 (12-20); Aspartate Amino Transferase 38 U/L (5-31); Blood Urea Nitrogen 19 mg/dL (9-16); Calcium 9.5 mg/dL (8.4-10.2); Carbon Dioxide 29 mmol/L (22-29); Chloride 104 mmol/L (96-108); Cholesterol 238 mg/dL (<200); Estimated Glomerular Filt Rate > 60; HDL Cholesterol 76 mg/dL (>40); Potassium 4.5 mmol/L (3.3-5.1); Sodium 143 mmol/L (135-145); Triglycerides 251 mg/dL (<150)
[2025-03-28 13:32] LABS: Folate 8.4 ng/mL (> or = 4.0); Vitamin B12 609 pg/mL (200-900)
== END 2025-03-28 09:11 | disposition home or self-care (01) ==
LOC: HO.HMGCLDS 09:10
PROVIDERS: PCP Internal Medicine; Visit Provider Internal Medicine
DX: K58.2 Mixed irritable bowel syndrome (principal); E78.2 Mixed hyperlipidemia; R73.01 Impaired fasting glucose; M85.89 Other specified disorders of bone density and structure, multiple sites
CPT/HCPCS: 36415; 80048; 80061; 82306; 82607; 82746; 84450; 84460

== ENCOUNTER 2025-04-03 08:35 | Outpatient (AMB) | payer BC, SELFPAY ==
--- NOTE | 2025-04-03 08:49 | A.OFFPC_ITS ---
Vital Signs 04/03/25 09:02 Height 5 ft 8 in Weight 138 lb BMI 21.0 BP 136/86 Blood Pressure Location Lt brachial Position Sitting Respiration 16 Pulse 109 H Pulse Source Pulse Oximeter Temp 98.7 F Temp Source Oral Pulse Oximetry (%) 99 Oxygen Delivery Method Room Air Intake Visit Reasons: PE Intake Note: Pt is here today for her PE: last mammogram 02/14/24, papsmear 11/20/23, colonoscopy 10/17/22 Contract Officer Required: No Allergies No Known Allergies (No Known Allergies*) Allergy (Verified 04/07/25 01:46) Medication List - Last Reconciled 04/07/25 by Nita Duke MD [id number] mg 1 tab PO cholecalciferol (vitamin D3) 10 mcg PO DAILY cyclosporine 0.05% (Restasis) 1 drp ophthalmic (eye) Q12H hydrocortisone 2.5% appl topical imipramine HCl 30 mg (3 x 10 mg) PO BEDTIME 30 days krill oil 500 mg PO DAILY L.rhamnosus-B.animalis 3 billion cell (PurePlay) 1 cap PO DAILY njjblv-zxoffter-comdbbk (pork) 24,000-76,000 -120,000 unit (Creon) 2 caps PO BID 30 days multivitamin 1 cap PO DAILY pantoprazole 40 mg PO DAILY vitamin B complex (B Complex-Vitamin B12 tablet) 1 tab PO DAILY wheat dextrin (Benefiber Clear Sugar Free(dextrin)) 1.5 grams PO BID Tobacco use date assessed: 04/03/25 Dental Screening Dental Screen Date: 04/03/25 Did you have a dental visit in the last 12 months?: Yes Did you have a dental problem in the last 6 months where you did not have access to dental care?: No Was dental information given to patient?: Patient has dentist HPI PE HPI Details The patient is a 60-year-old female presenting for her physical exam.. She reports significant stress, feeling scatterbrained, and difficulty concentrating following the of her seven months ago. She does not see a counselor and has no children but has support from her brothers and friends. She has been diagnosed to have irritable bowel syndrome, which she feels is affected by her emotional state and began about a year and a half ago, starting with hemorrhoids. She is followed by a GI specialist, ADI Corado, and takes Creon for digestion, 3 tablets of imipramine at night, and Benefiber, which has resulted in more formed stools, though she has good and bad days. She has a history of esophagitis with inflammation noted on an endoscopy many years ago, for which she has been taking pantoprazole 40 mg for years. She also has significant scarring from hemorrhoid disease, and a prior attempt at banding was unsuccessful due to tenderness; surgery is being considered as a future option. Complains of persistent facial acne breakout that has not responded to multiple treatments, including a steroid cream (desonide). This condition causes her significant embarrassment, leading her to avoid social situations. She has an upcoming appointment in May with a new dermatology provider. Lab results show improvement in her hyperlipidemia, with her LDL cholesterol down to 112 from 146 and total cholesterol down to 238 from 258, although triglycerides are elevated at 251. She reports taking krill oil supplements and has lost some weight. Her liver function tests are slightly elevated at 38 and 32. In terms of health maintenance, the patient had a mammogram in March and her next colonoscopy is not due until 2027; she has a history of polyps. A bone density scan is planned for next year. She has received the flu, RSV, and shingles vaccines, but has not had the pneumonia vaccine. The patient had a partial hysterectomy and reports a recurrence of menopausal symptoms, including night sweats, that began about 10 years ago and are now back full force. She sees Dr. Lori Romero for her eye exam, with a recent exam in January showing no glaucoma or cataracts, and she uses cyclosporine for dry eyes. She is a current smoker but does not feel this is the right time to quit. [facility] Medical History Osteopenia of multiple sites History of diverticulitis External hemorrhoid, bleeding History of adenomatous polyp of colon Palmar nodule Mixed dyslipidemia Decreased pedal pulses Numbness and tingling of foot Fracture of metacarpal bone of left hand COVID-19 vaccine series completed Fracture of fifth metacarpal bone of left hand Osteopenia of right hip Impaired fasting glucose Dyslipidemia Rash of face Loose stools Cervical paraspinal muscle spasm Osteopenia of left hip Smoker unmotivated to quit Surgical menopause Eczema of both hands History of chickenpox History of anxiety disorder GERD (gastroesophageal reflux disease) Surgical History History of esophagogastroduodenoscopy (EGD) Hx of colonoscopy History of appendectomy History of hysterectomy, supracervical abdominal (subtotal) Family History Father Hypertension Mother Diabetes Stroke Brother Hypercholesteremia Brother Hypertension Social History Housing: House Alcohol intake: current Alcohol intake frequency: 0-2 drinks per day Alcohol type: beer and wine Patient Tobacco Use Status: Current everyday Tobacco user Tobacco use type: Cigarette Cigarettes Per Day: 10 Years Smoked: 40 e-Cigarette/Vaping Use: Never Used Second Hand Smoke Exposure: Yes service: No Current occupational status: employed Cognitive needs: No Hearing needs: No Vision needs: Yes Questionnaire PHQ-9 Over the last 2 weeks, how often have you been bothered by any of the following problems? 1. Little interest or pleasure in doing things: several days 2. Feeling down, depressed, or hopeless: several days 3. Trouble falling or staying asleep, or sleeping too much: several days 4. Feeling tired or having little energy: several days 5. Poor appetite or overeating: several days 6. Feeling bad about yourself - or that you are a failure or have let yourself or your family down: not at all 7. Trouble concentrating on things, such as reading the newspaper or watching television: several days 8. Moving or speaking so slowly that other people could have noticed. Or the opposite - being so fidgety or restless that you have been moving around a lot more than usual: not at all 9. Thoughts that you would be better off or of hurting yourself in some way: not at all Total score: 6 Depression Screening Interpretation: Positive (Currently grieving loss of has been 7 months ago) Depression Screening Follow-up: Existing condition and Declines treatment Depression Screening Done: Yes 94418 - PHQ-9 Billing: Yes Source: Developed by Drs. Shiv Augustin, Flaquita Breen, Alo Riggins and colleagues, with an educational leticia from [employer]. Thrive Questionnaire Date Thrive assessed: 04/03/25 I am a: Patient What is your living situation today?: I have a steady place to live Within the past 12 months, did the food you bought not last and you didn't have the money to get more?: Never true Within the past 12 months, did you worry whether your food would run out before you got money to buy more?: Never true Do you have trouble paying for medicines?: No Do you have trouble getting transportation to medical appointments?: No Do you have trouble paying your heating and electricity bill?: No Do you have trouble taking care of your child, family member or friend?: No Do you have trouble with day-to-day activities such as bathing, preparing meals, shopping, managing finances, etc.?: No Are you currently unemployed and looking for a job?: No Are you interested in more education?: No Please select the resources that you would like help with: None Currently or been in a relationship where the following occur: No concerns reported THRIVE Score: 0 AUDIT C Alcohol Use Questionnaire (AUDIT-C) 1. How often do you have a drink containing alcohol?: 4 or more times a week 2. How many drinks containing alcohol do you have on a typical day when you are drinking?: 1 or 2 3. How often do you have six or more drinks on one occasion?: Monthly Total Score: 6 GONZÁLEZ-7 AMB Questionnaire GONZÁLEZ-7 Date GONZÁLEZ - 7 assessed: 04/03/25 Feeling nervous, anxious, or on edge: 1 = Several days Not being able to stop or control worryin = Several days Worrying too much about different things: 1 = Several days Trouble relaxin = Not at all Being so restless that it is hard to sit still: 0 = Not at all Becoming easily annoyed or irritable: 1 = Several days Feeling afraid as if something awful might happen: 1 = Several days Total GONZÁLEZ-7 score (0-4 normal; 5-9 mild; 10-14 moderate; 15-21 severe): 5 Source: Developed by Drs. Shiv Augustin, Alo Hdez and colleagues, with an educational leticia from [employer]. GONZÁLEZ-7 Assessment Billing GONZÁLEZ-7 Assessment Tool: GONZÁLEZ-7 Assessment 25121 Review of Systems Const Denies fatigue, Denies fever(s), Denies night sweats, Denies poor appetite and Denies weight loss Eyes Details: Sees Dr. Lori Romero Reports requires corrective lenses ENT Reports Normal hearing present, Denies dental pain, Denies dysphagia, Denies hearing loss, Denies mouth pain, Denies odynophagia, Denies throat swelling, Denies tongue swelling and Reports other (Dentition adequate) Card Reports no additional complaints Resp Reports no additional complaints GI Denies abdominal pain, Denies melena, Reports bloating, Reports hematochezia, Reports constipation (Occasional), Denies GI cramping, Denies dysphagia, Denies excessive flatus, Denies early satiety, Reports heartburn, Reports diarrhea, Denies nausea, Denies odynophagia, Denies vomiting and Denies hematemesis Details: sees Dr Swan for her cervical cancer screening and pelvic exam Musc Reports no additional complaints Skin/Breast Details: Will be seeing Dr. Brody at [facility] dermatology, already has an appointment Reports as per HPI Neuro Reports Normal hearing present and Denies Abnormal speech present Psych Reports no additional complaints Endo Denies fatigue Jeremias/Lymph Reports no additional complaints Aller/Immun Denies throat swelling and Denies tongue swelling Physical exam (Primary Care) Vital Signs: Last Vital Signs Temp 98.7 F 04/03/25 09:02 Pulse 109 H 04/03/25 09:02 Resp 16 04/03/25 09:02 BP 136/86 04/03/25 09:02 Pulse Ox 99 04/03/25 09:02 Oxygen Delivery Method Room Air 04/03/25 09:02 BMI result Body Mass Index 21.0 Tobacco/Smoking Status: Tobacco use Status Tobacco use date assessed 04/03/25 04/03/25 08:53 Patient Tobacco Use Status Current everyday Tobacco 04/03/25 08:50 Tobacco use type Cigarette 04/03/25 08:50 e-Cigarette/Vaping Use Never Used 04/03/25 08:50 Are you ready to quit: No Tobacco cessation counseling provided: Yes PHQ-9: PHQ-9 Score PHQ-9: Total score 6 04/07/25 01:58 Depression Screening Interpretation: Positive (Currently grieving loss of has been 7 months ago) Depression Screening Follow-up: Existing condition and Declines treatment Thrive Assessment: Date of Thrive Assessment Date Thrive assessed 04/03/25 04/03/25 08:50 Currently or been in a relationship where the following occur: No concerns reported Const General: no acute distress Orientation/consciousness: patient oriented x3 HENMT Ears: hearing grossly normal bilaterally, external ears normal, TM's normal bilaterally and EAC's normal General nose exam: Normal external nose present Mouth: Normal oral and palatal mucosa present, oropharynx normal and moist mucous membranes Eyes General: appearance normal, both eyes and all related structures Conjunctivae: conjunctivae normal Pupils: Equal, round and reactive pupils present EOM: EOMs intact bilaterally Neck Neck: Yes full ROM, Yes no lymphadenopathy and Yes supple Thyroid: Thyroid normal Chest Chest palpation & inspection: normal inspection of the chest Breast/axilla inspection: normal inspection of the breasts Breast/axilla palpation: normal palpation of the breasts and normal palpation of the axillae Resp Effort & Inspection: normal respiratory effort and able to speak in complete sentences Auscultation: clear to auscultation bilaterally Cardio Rate: regular rate Rhythm: regular rhythm Heart sounds: S1 normal heart sound present and S2 normal heart sound present GI Inspection: Yes normal to inspection Palpation (GI): Soft to palpation, nontender and no masses Auscultation: normal bowel sounds Other: sees her OB-METAL CAN INSPECTOR , Dr Swan Back/Spine/Pelvis Cervical Spine: cervical ROM normal, cervical muscular tenderness (Right side) and cervical spasm (Right) Thoracic/Lumbar Spine: thoracic and lumbar spine normal to inspection Skin Other: acneiform lesions present mainly on chin area Neuro General: patient oriented x3, gait normal, moves all extremities, Normal light touch and pain sensation and no focal motor deficits Cranial nerves: Yes Equal, round and reactive pupils present and Yes Normal hearing present Cognition (Neuro): normal cognition Speech: No Abnormal speech present Gait exam (Neuro): Normal gait present Motor exam (neuro): 5/5 motor strength present throughout Extrem General: Yes normal to inspection, Yes full ROM, Yes no joint enlargement, Yes no calf tenderness and Yes normal gait Psych Appearance: grossly normal Mental Status: mental status grossly normal Speech and movement: Normal speech and movement present Affect: normal affect Results Reviewed Results Reviewed: Name: Valerie Salcido Age/Sex: 60/F : 1965 Unit#: [id number] Attend Dr: Nita Duke MD Re03/28/25 Status: DEP REF Location: [facility] Disch: SPEC : [id number] EMI: 03/28/25 STATUS: COMP REQ : [id number] RECD: 03/28/25-[address]: Nita Duke MD COMP: 03/28/25 ENTERED: 03/28/25 [facility] DR: ORDERED: Met Prof Fast, AST, ALT, Lipid Panel, Vitamin D 25-OH Test Result Flag Reference Sodium 143 135-145 mmol/L Potassium 4.5 3.3-5.1 mmol/L CL 104 96-108 mmol/L CO2 29 22-29 mmol/L Gap 15 12-20 BUN 19 H 9-16 mg/dL Creat 0.91 0.5-1.4 mg/dL eGFR > 60 Chronic Kidney Disease: Estimated GFR < 60 mL/min/1.73m2 Severe Kidney Disease: Estimated GFR < 15 mL/min/1.73m2 FBS 91 60-99 mg/dL CA 9.5 8.4-10.2 mg/dL AST (GOT) 38 H 5-31 U/L ALT (GPT) 32 H 0-31 U/L Triglyceride 251 H <150 mg/dL Desirable Triglyceride: less than 150 mg/dL Borderline High Triglyceride 150-199 mg/dL High Triglyceride: 200-499 mg/dL Very High Triglyceride: greater than or equal to 5OO mg/dL Cholesterol 238 H <200 mg/dL Desirable Cholesterol: less than 200 mg/dL Borderline High Cholesterol: 200-239 mg/dL High Cholesterol: greater than 239 mg/dL LDL Calculated 112 H <100 mg/dL Desirable LDL: less than 100 mg/dL Near Optimal/Above Optimal LDL: 110-129 mg/dL Borderline High LDL: 130-159 mg/dL High LDL: 160-189 mg/dL Very High LDL: greater than or equal to 190 mg/dL HDL 76 >40 mg/dL Desirable HDL: greater than 40 mg/dL Note: This HDL assay may give artificially low results in patients with liver disease. Vitamin D 25-OH 70.9 >30 ng/mL Health Based Reference Values* < 20 ng/mL Deficient 20-30 ng/mL Insufficient > 30 ng/mL Sufficient Name: Loly,Valerie Age/Sex: 59/F : 1965 Unit#: [id number] Attend Dr: Kong ANP-C Re05/08/24 Status: DEP REF Location: .LAB Disch: SPEC : [id number] EMI: 05/08/24 STATUS: COMP REQ : [id number] RECD: 05/08/[address]: Kong ANP-C COMP: 05/08/24 ENTERED: 05/08/[address]: Nita Duke MD ORDERED: CBC Auto Diff Test Result Flag Reference WBC 6.2 4.8-10.8 X10*3/uL RBC 4.14 L 4.20-5.50 X10*6/uL HGB 13.7 12.0-16.0 g/dl HCT 38.9 37.0-47.0 % MCV 94.0 80.0-98.0 fL MCH 33.1 H 27.0-33.0 pg MCHC 35.2 H 31.0-35.0 g/dl RDW 11.8 11.0-16.0 % PLT 213 160-400 X10*3/uL MPV 11.0 9.4-12.3 fL Neut Pct Auto 44.5 L 45-73 % ImGran Pct Auto 0.3 0.0-0.4 % Lymp Pct Auto 45.7 H 20-40 % Bladen Pct Auto 6.6 2-11 % Eos Pct Auto 1.8 0-4 % Baso Pct Auto 1.1 0-2 % NRBC Pct Auto 0.0 0.0-0.2 /100WBC ANC Neut Abs # 2.8 2.0-8.3 x10*3/uL ImGran Abs Auto 0.02 0.00-0.03 X10*3/uL Lymph Abs Auto 2.8 1.2-4.9 X10*3/uL Bladen Abs Auto 0.4 0.1-1.2 X10*3/uL Eos Abs Auto 0.1 0.0-0.4 X10*3/uL Baso Abs Auto 0.1 0.0-0.2 X10*3/uL BC Abs Auto 0.000 0.0-0.012 X10*3/uL Coding Level of Care Code Est Pt Prev Care 40-64y(44209) Diagnoses Annual visit for general adult medical examination with abnormal findings Z00.01 Mixed dyslipidemia E78.2 Impaired fasting glucose R73.01 Osteopenia of multiple sites M85.89 Gastroesophageal reflux disease without esophagitis K21.9 Esophagitis presence: without esophagitis Irritable bowel syndrome with both constipation and diarrhea K58.2 Other acne L70.8 Acne type: other acne Smoker unmotivated to quit F17.200 Additional Codes GONZÁLEZ-7 Assessment Billing - GONZÁLEZ-7 Assessment Tool: GONZÁLEZ-7 Assessment 17164 ([id number]) PHQ-9 - 05522 - PHQ-9 Billing: Yes ([id number]) Assessment & Plan Assessment & Plan (1) Annual visit for general adult medical examination with abnormal findings: Code(s): Z00.01 - Encounter for general adult medical examination with abnormal findings Plan: Will check appropriate labs. Recommended dental visit every 6 months and regular eye exams, at least every 2 years. Take adequate calcium in diet and vitamin-D 3 at 2000 IU per cap once a day, in addition to weight-bearing exercises to help maintain good muscle tone and weight control. Instructed to do self-breast exam, and continue with yearly mammogram, up-to-date with her screening colonoscopy due again in 2027. She has received all her vaccines ex cept for the pneumonia vaccine (2) Mixed dyslipidemia: Code(s): E78.2 - Mixed hyperlipidemia Category: Medical Plan: Reinforced importance of adhering to a low-cholesterol diet, getting more fiber intake, staying active at least doing 15-30 minutes of moderate intensity exercise on a daily basis. (3) Impaired fasting glucose: Code(s): R73.01 - Impaired fasting glucose Category: Medical Plan: Your previous fasting blood sugars were elevated above 100 mg/dL. Impaired glucose metabolism increases the risk for developing diabetes mellitus type 2, as well as heart attack and stroke later on. Lifestyle changes that promotes weight loss, healthy eating habits, and regular exercise are important, and can prevent the progression to diabetes (4) Osteopenia of multiple sites: Code(s): M85.89 - Other specified disorders of bone density and structure, multiple sites Category: Medical Plan: Stressed importance of taking adequate calcium from dietary sources and take vitamin-D 3 supplements daily, as well as doing regular weight-bearing exercises (5) GERD (gastroesophageal reflux disease): Code(s): K21.9 - Gastro-esophageal reflux disease without esophagitis Category: Medical Qualifiers: Esophagitis presence: without esophagitis Qualified Code(s): K21.9 - Gastro-esophageal reflux disease without esophagitis Plan: Currently on Creon and pantoprazole (6) Irritable bowel syndrome with both constipation and diarrhea: Code(s): K58.2 - Mixed irritable bowel syndrome Category: Medical Plan: Currently on Benefiber and pantoprazole (7) Acne: Code(s): L70.9 - Acne, unspecified Category: Medical Qualifiers: Acne type: other acne Qualified Code(s): L70.8 - Other acne Plan: Has been appointment already scheduled to see for further evaluation and management (8) Smoker unmotivated to quit: Code(s): F17.200 - Nicotine dependence, unspecified, uncomplicated Category: Social Hx Plan: Patient strongly advised to stop smoking, as smoking damages blood vessels, degenerative of joints and spine, damage to lungs and heart., predisposes to developing certain cancers like lung, breast, bladder, colon. Recommended to try decreasing cigarette use by 1-2 cigarettes a day. Advised to monitor what triggers are for smoking so that this can be discussed on the next office visit. We can discuss different options to quit smoking when ready.
[2025-04-03 09:02] VITALS: BP 136/86; PULSE 109; RESP 16; TEMP 37.1; O2SAT 99; BMI 21.0
== END 2025-04-03 09:50 | disposition home or self-care (01) ==
LOC: HO.HMCC 08:36
PROVIDERS: PCP Internal Medicine; Visit Provider Internal Medicine
DX: Z00.01 Encounter for general adult medical examination with abnormal findings (principal); E78.2 Mixed hyperlipidemia; R73.01 Impaired fasting glucose; M85.89 Other specified disorders of bone density and structure, multiple sites; K21.9 Gastro-esophageal reflux disease without esophagitis; K58.2 Mixed irritable bowel syndrome; L70.8 Other acne; F17.200 Nicotine dependence, unspecified, uncomplicated

== ENCOUNTER → 2025-04-03 08:35 | Outpatient (BNVA) | payer BC, SELFPAY | PROVIDERS: PCP Internal Medicine; Visit Provider Internal Medicine | DX: Z00.01 Encounter for general adult medical examination with abnormal findings (principal); E78.2 Mixed hyperlipidemia; R73.01 Impaired fasting glucose; M85.89 Other specified disorders of bone density and structure, multiple sites; K21.9 Gastro-esophageal reflux disease without esophagitis; K58.2 Mixed irritable bowel syndrome; L70.8 Other acne; F17.210 Nicotine dependence, cigarettes, uncomplicated | CPT/HCPCS: 96127 ==